=== PATIENT | male | born 1930 | race African-American/Black ===

== ENCOUNTER 2018-06-06 08:25 | Inpatient (IN) | payer BC, MEDICARE ==
--- NOTE | 2018-06-06 09:26 | ER Document Report ---
ED Extremity Problem, Lower - General Chief Complaint: Leg Swelling Stated Complaint: SWOLLEN LEG Time Seen by Provider: 06/06/18 09:21 Mode of Arrival: Ambulatory Information source: Patient Notes: Chief complaint: Left leg swelling History of complain:( obtained from----patient) 88 years old pleasant male with a chronic history of left leg swelling, had colon cancer which was surgically resected a few years ago since then persistent swelling of the left leg, but last few days the swelling is more than usual in spite of taking Lasix therefore he was brought to the ED. Take informed that he does not take his Lasix regularly. Has no difficulty in breathing chest pain. Denies any swelling over the right lower leg. Denies any constitutional symptoms. Onset: Gradual Duration: Last several days Severity: Moderate Quality: Not applicable Context: Postsurgical lymphatic stasis Exacerbating factor and relieving factors: Sitting in a place for a long time REVIEW OF SYSTEMS: CONSTITUTIONAL : Denies fever, chills, or sweats. Denies recent illness. EENT: Denies eye, ear, throat, or mouth pain or symptoms. Denies nasal or sinus congestion or discharge. Denies throat, tongue, or mouth swelling or difficulty swallowing. CARDIOVASCULAR: Denies chest pain. Denies palpitations or racing or irregular heart beat. Denies ankle edema. RESPIRATORY: Denies cough, cold, or chest congestion. Denies shortness of breath, difficulty breathing, or wheezing. GASTROINTESTINAL: Denies distention. Denies nausea, vomiting, or diarrhea. Denies blood in vomitus, stools, or per rectum. Denies black, tarry stools. Denies constipation. GENITOURINARY: Denies difficulty urinating, painful urination, burning, frequency, blood in urine, or discharge. FEMALE GENITOURINARY: Denies vaginal bleeding, heavy or abnormal periods, irregular periods. Denies vaginal discharge or odor. MUSCULOSKELETAL: Denies back or neck pain or stiffness. Denies joint pain SKIN: Denies rash, lesions or sores. HEMATOLOGIC : Denies easy bruising or bleeding. LYMPHATIC: Denies swollen, enlarged glands. NEUROLOGICAL: Denies confusion or altered mental status. Denies passing out or loss of consciousness. Denies dizziness or lightheadedness. Denies headache. Denies weakness or paralysis or loss of use of either side. Denies problems with gait or speech. Denies sensory loss, numbness, or tingling. Denies seizures. PSYCHIATRIC: Denies anxiety or stress. Denies depression, suicidal ideation, or homicidal ideation. ALL OTHER SYSTEMS REVIEWED AND NEGATIVE. PHYSICAL EXAMINATION: GENERAL: Well-appearing, well-nourished and in no acute distress. Pleasant gentleman not in any distress walks with a walker HEAD: Atraumatic, normocephalic. EYES: Pupils equal round and reactive to light, extraocular movements intact, conjunctiva are normal. ENT: Nares patent, oropharynx clear without exudates. Moist mucous membranes. NECK: Normal range of motion, supple without lymphadenopathy LUNGS: Breath sounds clear to auscultation bilaterally and equal. No wheezes rales or rhonchi. HEART: Regular rate and rhythm without murmurs ABDOMEN: Soft, nontender, nondistended abdomen. No guarding, no rebound. No masses appreciated. Examination of genitals-deferred Musculoskeletal: Left leg entire left leg has 4+ pitting edema, left calf is very tight and tender, swelling is almost double the size of the right side. Right leg appears normal. Normal range of motion. NEUROLOGICAL: Cranial nerves grossly intact. Normal speech, normal gait. Normal sensory, motor exams PSYCH: Normal mood, normal affect. SKIN: Warm, Dry, normal turgor, no rashes or lesions noted. Dictation was performed using [id number] voice recognition software TRAVEL OUTSIDE OF THE [place] IN LAST 30 DAYS: No - HPI Notes: Dictated - Related Data Allergies/Adverse Reactions: No Known Allergies Allergy (Verified 06/06/18 08:25) Past Medical History - Social History Smoking Status: Never Smoker Cigarette use (# per day): No Chew tobacco use (# tins/day): No Smoking Education Provided: No Frequency of alcohol use: Rare Drug Abuse: None Lives with: Family Family History: Reviewed & Not Pertinent - Past Medical History Cardiac Medical History: Reports: Hx Hypertension - MEDICATED Denies: Hx Coronary Artery Disease, Hx Heart Attack Pulmonary Medical History: Denies: Hx Asthma, Hx Bronchitis, Hx COPD, Hx Pneumonia, Hx Tuberculosis Neurological Medical History: Denies: Hx Cerebrovascular Accident, Hx Seizures Endocrine Medical History: Reports: Hx Diabetes Mellitus Type 2 GI Medical History: Denies: Hx Hepatitis, Hx Hiatal Hernia, Hx Ulcer Musculoskeletal Medical History: Reports Hx Arthritis Infectious Medical History: Denies: Hx Hepatitis Past Surgical History: Denies: Hx Open Heart Surgery, Hx Pacemaker - Immunizations Hx Pneumococcal Vaccination: 06/18/11 Review of Systems - Review of Systems Notes: Dictated Physical Exam - Vital signs Vitals: Pulse Resp BP Pulse Ox 88 12 121/73 99 06/06/18 08:51 06/06/18 08:51 06/06/18 08:51 06/06/18 08:51 - Notes Notes: Dictated Course - Vital Signs Vital signs: Temp Pulse Resp BP Pulse Ox 88 12 121/73 99 06/06/18 08:51 06/06/18 08:51 06/06/18 08:51 06/06/18 08:51 Discharge - Discharge Referrals: CRISELDA ZELAYA MD [Primary Care Provider] - Follow up as needed
[2018-06-06 10:09] LABS: ABSOLUTE EOSINOPHILS # (AUTO) 0.5 10^3/uL (0.0-0.6); ABSOLUTE LYMPHOCYTES (AUTO) 0.9 10^3/uL (0.5-4.7); ABSOLUTE MONOCYTES (AUTO) 0.3 10^3/uL (0.1-1.4); ABSOLUTE NEUT (AUTO) 2.7 10^3/uL (1.7-8.2); EOSINOPHILS % (AUTO) 10.6 % (0-6); HEMATOCRIT 31.5 % (37.9-51.0); HEMOGLOBIN 10.6 g/dL (13.5-17.0); LYMPHOCYTES % (AUTO) 20.5 % (13-45); MEAN CORPUSCULAR HEMOGLOBIN 32.8 pg (27.0-33.4); MEAN CORPUSCULAR HGB CONC 33.5 g/dL (32.0-36.0); MEAN CORPUSCULAR VOLUME 98 fl (80-97); MONOCYTES % (AUTO) 7.3 % (3-13); RED BLOOD COUNT 3.22 10^6/uL (4.35-5.55); RED CELL DISTRIBUTION WIDTH 18.3 % (11.5-14.0); SEGMENTED NEUTROPHILS % (AUTO) 60.6 % (42-78); TOTAL CELLS COUNTED % (AUTO) 100 %; WHITE BLOOD COUNT 4.4 10^3/uL (4.0-10.5)
[2018-06-06 10:23] LABS: ALANINE AMINOTRANSFERASE 16 U/L (21-72); ALBUMIN 3.4 g/dL (3.5-5.0); ALKALINE PHOSPHATASE 271 U/L (38-126); ANION GAP 7 (5-19); ASPARTATE AMINO TRANSFERASE 16 U/L (17-59); BILIRUBIN,DIRECT 0.6 mg/dL (0.0-0.4); BILIRUBIN,TOTAL 0.9 mg/dL (0.2-1.3); BLOOD UREA NITROGEN 39 mg/dL (7-20); CALCIUM 8.4 mg/dL (8.4-10.2); CARBON DIOXIDE 16 mmol/L (22-30); CHLORIDE 119 mmol/L (98-107); GLUCOSE 85 mg/dL (75-110); POTASSIUM 5.8 mmol/L (3.6-5.0); SODIUM 142.2 mmol/L (137-145); TOTAL PROTEIN 6.5 g/dL (6.3-8.2)
[2018-06-06 10:40] LABS: PLATELET COUNT 67 10^3/uL (150-450)
[2018-06-06 10:41] LABS: ANISOCYTOSIS 2+; HYPOCHROMASIA 1+; OVALOCYTES 1+; PLATELET COMMENT DECREASED; POIKILOCYTOSIS 2+; POLYCHROMASIA 1+; SCHISTOCYTES 1+; TARGET CELLS 1+; TEAR DROP CELLS SLIGHT
[2018-06-06] MEDS ORDERED: RIVAROXABAN 15 MG TABLET PO ONE (11:01)
[2018-06-06] MEDS ORDERED: NORMAL SALINE 1000 ML 1,000 ML IV ONE (11:11)
[2018-06-06 11:29] LABS: INTERNATIONAL RATION (INR) 1.29; PROTHROMBIN TIME 16.7 SEC (11.4-15.4)
[2018-06-06 11:30] LABS: PARTIAL THROMBOPLASTIN TIME 37.1 SEC (23.5-35.8)
--- NOTE | 2018-06-06 11:42 | EKG REPORT ---
SEVERITY:- DEFECTIVE ECG - SINUS RHYTHM.NS IVCD.REPEAT EKG. : Confirmed by: Francia Robbins MD 06-Jun-2018 11:41:49
[2018-06-06] MEDS ORDERED: SODIUM POLYSTYRENE SULFONATE 15 GM/60 ML PO ONE (12:07)
--- NOTE | 2018-06-06 12:28 | RADIOLOGY REPORT (SQ) ---
EXAM DESCRIPTION: VENOUS UNILATERAL LOWER COMPLETED DATE/TIME: 06/06/2018 12:13 pm REASON FOR STUDY: Rule out DVT of the left leg COMPARISON: None. TECHNIQUE: Dynamic and static samuels scale and color images acquired of the left leg venous system. Se lected spectral images acquired with additional compression and augmentation maneuvers. The contralat eral common femoral vein and saphenofemoral junction were also imaged. Images stored on PACS. LIMITATIONS: None. FINDINGS: COMMON FEMORAL: Mostly occlusive thrombus. FEMORAL: Mostly occlusive thrombus. POPLITEAL: Nonocclusive thrombus. CALF VESSELS: Normal compression, augmentation. No visualized echogenic material on samuels scale. No de fects on color images. GSV and SSV: Normal compression, augmentation. No visualized echogenic material on samuels scale. No def ects on color images. ANY DEEP VENOUS INSUFFICIENCY: Not evaluated. ANY EVIDENCE OF POPLITEAL CYST: No. OTHER: No other significant finding. CONTRALATERAL COMMON FEMORAL VEIN AND SAPHENOFEMORAL JUNCTION: Normal phasicity, compression and augmentation. No visualized echogenic material on samuels scale. No de fects on color images. IMPRESSION: Acute deep vein thrombosis common femoral, femoral and popliteal veins. TECHNICAL DOCUMENTATION: JOB ID: [id number] clickTRUE- All Rights Reserved Reading location - IP/workstation name: [email or web address]
[2018-06-06] MEDS ORDERED: NORMAL SALINE 250 ML IV ONE (12:43)
[2018-06-06] MEDS ORDERED: APIXABAN 2.5 MG TABLET PO ONE (12:48)
--- NOTE | 2018-06-06 13:04 | ER Document Report ---
ED General - General Chief Complaint: Leg Swelling Stated Complaint: SWOLLEN LEG Time Seen by Provider: 06/06/18 09:21 Mode of Arrival: Ambulatory TRAVEL OUTSIDE OF THE [place] IN LAST 30 DAYS: No - HPI Patient complains to provider of: Left leg swelling Notes: Patient coming in for left leg swelling ongoing for approximately 1 week. Family at bedside patient has a history of dementia the family states the patient has a history of colon cancer with resection states history of blood clots in the past was on blood thinning medication however currently is on not states he has not followed up with his primary care physician the last 2 years. Patient otherwise was prescribed medications for hypertension and other medical issues is currently ran out. Patient resting comfortably denies any pain. Denies any trauma to the leg denies any travel. Patient denies any shortness of breath. - Related Data Allergies/Adverse Reactions: No Known Allergies Allergy (Verified 06/06/18 08:25) Past Medical History - General Information source: Patient - Social History Smoking Status: Never Smoker Cigarette use (# per day): No Chew tobacco use (# tins/day): No Frequency of alcohol use: Rare Drug Abuse: None Lives with: Family Family History: Reviewed & Not Pertinent Patient has suicidal ideation: No Patient has homicidal ideation: No - Past Medical History Cardiac Medical History: Reports: Hx Hypertension - MEDICATED Denies: Hx Coronary Artery Disease, Hx Heart Attack Pulmonary Medical History: Denies: Hx Asthma, Hx Bronchitis, Hx COPD, Hx Pneumonia, Hx Tuberculosis Neurological Medical History: Denies: Hx Cerebrovascular Accident, Hx Seizures Endocrine Medical History: Reports: Hx Diabetes Mellitus Type 2 Renal/ Medical History: Denies: Hx Peritoneal Dialysis GI Medical History: Denies: Hx Hepatitis, Hx Hiatal Hernia, Hx Ulcer Musculoskeletal Medical History: Reports Hx Arthritis Infectious Medical History: Denies: Hx Hepatitis Past Surgical History: Denies: Hx Open Heart Surgery, Hx Pacemaker - Immunizations Hx Pneumococcal Vaccination: 06/18/11 Review of Systems - Review of Systems -: Yes ROS unobtainable due to patient's medical condition - Dementia -: Yes All other systems reviewed and negative Physical Exam - Vital signs Vitals: Pulse Resp BP Pulse Ox 88 12 121/73 99 06/06/18 08:51 06/06/18 08:51 06/06/18 08:51 06/06/18 08:51 Interpretation: Normal - General General appearance: Appears well, Alert - HEENT Head: Normocephalic, Atraumatic Eyes: Normal Pupils: PERRL - Respiratory Respiratory status: No respiratory distress Chest status: Nontender Breath sounds: Normal Chest palpation: Normal - Cardiovascular Rhythm: Regular Heart sounds: Normal auscultation Murmur: No - Abdominal Inspection: Normal Distension: No distension Bowel sounds: Normal Tenderness: Nontender Organomegaly: No organomegaly - Back Back: Normal, Nontender - Extremities General upper extremity: Normal inspection, Nontender, Normal color, Normal temperature General lower extremity: Normal inspection, Nontender, Edema - 2-3+ pitting edema on the patient's left leg right leg unaffected, Normal color - Neurological Neuro grossly intact: Yes Sensory: Normal - Psychological Associated symptoms: Normal affect, Normal mood - Skin Skin Temperature: Warm Skin Moisture: Dry Skin Color: Normal Course - Re-evaluation Re-evalutation: 06/06/18 13:05 Patient been noncompliant follow-up with his primary care physician has not seen Dr. Mcgill in the last 2 years. Discussed the patient's case with Dr. Mcgill states that as a is not seen the patient in 2 years that the patient will need to be admitted to the hospitalist service. Discussed with Dr. Fletcher and Dr Smith. Will admit patient to telemetry unit will start renal dose and H dose of Eliquis 2.5 06/06/18 13:06 Patient's Doppler shows extensive DVT. Patient laboratory studies shows hyperkalemia thrombocytopenia and chronic renal failure. Thrombocytopenia is also chronic as well. Patient's family states that he has no issues with bleeding in the past no GI bleeds the head trauma. Patient was given oral Kayexalate along with IV fluids to help with the hyperkalemia is that there is no signs of EKG changes. - Vital Signs Vital signs: Temp Pulse Resp BP Pulse Ox 88 12 121/73 99 06/06/18 08:51 06/06/18 08:51 06/06/18 08:51 06/06/18 08:51 - Laboratory Result Diagrams: 06/06/18 09:42 06/06/18 09:42 Laboratory results interpreted by me: 06/06/18 06/06/18 06/06/18 09:42 09:42 09:42 RBC 3.22 L Hgb 10.6 L Hct 31.5 L MCV 98 H RDW 18.3 H Plt Count 67 L Eosinophils % 10.6 H PT APTT Potassium 5.8 H Chloride 119 H Carbon Dioxide 16 L BUN 39 H Creatinine 2.52 H Est GFR ( Amer) 29 L Est GFR (Non-Af Amer) 24 L Direct Bilirubin 0.6 H AST 16 L ALT 16 L Alkaline Phosphatase 271 H NT-Pro-B Natriuret Pep 3080 H Albumin 3.4 L 06/06/18 11:15 RBC Hgb Hct MCV RDW Plt Count Eosinophils % PT 16.7 H APTT 37.1 H Potassium Chloride Carbon Dioxide BUN Creatinine Est GFR ( Amer) Est GFR (Non-Af Amer) Direct Bilirubin AST ALT Alkaline Phosphatase NT-Pro-B Natriuret Pep Albumin Discharge - Discharge Clinical Impression: Hyperkalemia, Thrombocytopenia chronic 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
[2018-06-06] MEDS ORDERED: ONDANSETRON HCL INJ/PF 4 MG/2 ML SDV IV PRN (13:30)
[2018-06-06] MEDS ORDERED: ACETAMINOPHEN 325 MG TABLET PO PRN (13:30)
[2018-06-06] MEDS ORDERED: SODIUM POLYSTYRENE SULFONATE PO PRN (13:36)
--- NOTE | 2018-06-06 18:36 | PDOC H&P ---
History of Present Illness Admission Date/PCP: 06/06/18 13:30 CRISELDADENISE ZELAYA History of Present Illness: ROSALIND COOPER is a 88 year old male who is 88, demented and a terrible historian. I am called by the ED physician to admit this patient for Left lower extremity DVT, ANASTASIIA, hyperkalemia, and chronic thrombocytopenia. The patient has no idea why he is here. There is no family with him. Past Medical History Cardiac Medical History: Reports: Hypertension - MEDICATED Denies: Coronary Artery Disease, Myocardial Infarction Pulmonary Medical History: Denies: Asthma, Bronchitis, Chronic Obstructive Pulmonary Disease (COPD), Pneumonia, Tuberculosis Neurological Medical History: Denies: Seizures Endocrine Medical History: Reports: Diabetes Mellitus Type 2 GI Medical History: Denies: Hepatitis, Hiatal Hernia Musculoskeltal Medical History: Reports: Arthritis Hematology: Denies: Anemia, Sickle Cell Disease Past Surgical History Past Surgical History: Denies: Pacemaker Social History Lives with: Family Smoking Status: Never Smoker Hx Recreational Drug Use: No Hx Prescription Drug Abuse: No Family History Family History: Reviewed & Not Pertinent Parental Family History Reviewed: Yes Children Family History Reviewed: Yes Sibling(s) Family History Reviewed.: Yes Medication/Allergy Home Medications: Timolol Maleate 1 drop OU QAM 06/06/18 Allergies/Adverse Reactions: No Known Allergies Allergy (Verified 06/06/18 08:25) Review of Systems ROS unobtainable: Other - The patient is demented, and has no idea why he is here. He is not able to cooperate with Review of Systems. Physical Exam Vital Signs: Temp Pulse Resp BP Pulse Ox 88 12 121/73 99 06/06/18 08:51 06/06/18 08:51 06/06/18 08:51 06/06/18 08:51 Intake & Output 06/05/18 06/06/18 06/07/18 06:59 06:59 06:59 Intake Total 250 Balance 250 General appearance: PRESENT: no acute distress, cooperative, thin Head exam: PRESENT: atraumatic, normocephalic Eye exam: PRESENT: EOMI, PERRLA. ABSENT: conjunctival injection, nystagmus, periorbital swelling, scleral icterus Ear exam: PRESENT: normal external ear exam. ABSENT: bleeding, drainage Mouth exam: PRESENT: moist, neck supple, tongue midline Throat exam: ABSENT: post pharyngeal erythema, tonsillar erythema, tonsillar exudate, tonsillogmegaly Neck exam: ABSENT: carotid bruit, JVD, lymphadenopathy, meningismus, tenderness , thyromegaly, tracheostomy, other Respiratory exam: PRESENT: other - No increased work of breathing. No wheezes, rales, or rhonchi. No tactile fremitus. Cardiovascular exam: PRESENT: RRR, other - No lateral PMi. No thrills.. ABSENT : gallop, rubs, systolic murmur Pulses: PRESENT: normal dorsalis pedis pul GI/Abdominal exam: PRESENT: normal bowel sounds, soft. ABSENT: distended, hernia, mass, tenderness Extremities exam: ABSENT: clubbing, pedal edema, tenderness Musculoskeletal exam: PRESENT: normal inspection. ABSENT: deformity, dislocation, tenderness Neurological exam: PRESENT: alert, awake, oriented to person, oriented to place , oriented to time, oriented to situation, CN II-XII grossly intact. ABSENT: motor sensory deficit Psychiatric exam: PRESENT: appropriate affect, normal mood Skin exam: PRESENT: dry, intact, warm Results Laboratory Results: 06/06/18 06/06/18 06/06/18 09:42 09:42 09:42 WBC 4.4 RBC 3.22 L Hgb 10.6 L Hct 31.5 L MCV 98 H MCH 32.8 MCHC 33.5 RDW 18.3 H Plt Count 67 L Seg Neutrophils % 60.6 Lymphocytes % 20.5 Monocytes % 7.3 Eosinophils % 10.6 H Basophils % 1.0 Absolute Neutrophils 2.7 Absolute Lymphocytes 0.9 Absolute Monocytes 0.3 Absolute Eosinophils 0.5 Absolute Basophils 0.0 Platelet Comment DECREASED Polychromasia 1+ Hypochromasia 1+ Poikilocytosis 2+ Anisocytosis 2+ Target Cells 1+ Tear Drop Cells SLIGHT Ovalocytes 1+ Schistocytes 1+ PT INR APTT Sodium 142.2 Potassium 5.8 H Chloride 119 H Carbon Dioxide 16 L Anion Gap 7 BUN 39 H Creatinine 2.52 H Est GFR ( Amer) 29 L Est GFR (Non-Af Amer) 24 L Glucose 85 Calcium 8.4 Total Bilirubin 0.9 Direct Bilirubin 0.6 H AST 16 L ALT 16 L Alkaline Phosphatase 271 H NT-Pro-B Natriuret Pep 3080 H Total Protein 6.5 Albumin 3.4 L 06/06/18 11:15 WBC RBC Hgb Hct MCV MCH MCHC RDW Plt Count Seg Neutrophils % Lymphocytes % Monocytes % Eosinophils % Basophils % Absolute Neutrophils Absolute Lymphocytes Absolute Monocytes Absolute Eosinophils Absolute Basophils Platelet Comment Polychromasia Hypochromasia Poikilocytosis Anisocytosis Target Cells Tear Drop Cells Ovalocytes Schistocytes PT 16.7 H INR 1.29 APTT 37.1 H Sodium Potassium Chloride Carbon Dioxide Anion Gap BUN Creatinine Est GFR ( Amer) Est GFR (Non-Af Amer) Glucose Calcium Total Bilirubin Direct Bilirubin AST ALT Alkaline Phosphatase NT-Pro-B Natriuret Pep Total Protein Albumin Impressions: Venous Doppler Study 06/06/18 09:21 IMPRESSION: Acute deep vein thrombosis common femoral, femoral and popliteal veins. Assessment & Plan - Diagnosis (1) Thrombocytopenia Is this a current diagnosis for this admission?: Yes Plan: Chronic. Monitor. (2) Chronic renal failure Qualifiers: Chronic kidney disease stage: unspecified stage Qualified Code(s): N18.9 - Chronic kidney disease, unspecified Is this a current diagnosis for this admission?: Yes Plan: Cautious IV fluids. Monitor creatinine and electrolytes. Avoid nephrotoxic substances. (3) Deep vein thrombosis (DVT) of left lower extremity Qualifiers: Affected thrombotic vein of extremity: femoral Chronicity: acute Qualified Code(s): I82.412 - Acute embolism and thrombosis of left femoral vein Is this a current diagnosis for this admission?: Yes Plan: Eliquis (4) Hyperkalemia Is this a current diagnosis for this admission?: Yes Plan: Kayexalate given in the ED. Monitor potassium. Repeat if necessary. - Time Time Spent: 50 to 70 Minutes Medications reviewed and adjusted accordingly: Yes - Plan Summary Plan Summary: Admit to a medical bed. Continue eliquis. Monitor platelets, creatinine, and electrolytes.
[2018-06-07 07:04] LABS: ABSOLUTE EOSINOPHILS # (AUTO) 0.3 10^3/uL (0.0-0.6); ABSOLUTE LYMPHOCYTES (AUTO) 0.4 10^3/uL (0.5-4.7); ABSOLUTE MONOCYTES (AUTO) 0.3 10^3/uL (0.1-1.4); ABSOLUTE NEUT (AUTO) 3.2 10^3/uL (1.7-8.2); BASOPHILS % (AUTO) 0.3 % (0-2); EOSINOPHILS % (AUTO) 6.6 % (0-6); HEMATOCRIT 30.1 % (37.9-51.0); HEMOGLOBIN 10.3 g/dL (13.5-17.0); LYMPHOCYTES % (AUTO) 10.5 % (13-45); MEAN CORPUSCULAR HEMOGLOBIN 33.3 pg (27.0-33.4); MEAN CORPUSCULAR HGB CONC 34.4 g/dL (32.0-36.0); MEAN CORPUSCULAR VOLUME 97 fl (80-97); MONOCYTES % (AUTO) 6.7 % (3-13); RED CELL DISTRIBUTION WIDTH 17.8 % (11.5-14.0); SEGMENTED NEUTROPHILS % (AUTO) 75.9 % (42-78); TOTAL CELLS COUNTED % (AUTO) 100 %; WHITE BLOOD COUNT 4.2 10^3/uL (4.0-10.5)
[2018-06-07 07:16] LABS: ANION GAP 5 (5-19); BLOOD UREA NITROGEN 39 mg/dL (7-20); CALCIUM 8.1 mg/dL (8.4-10.2); CARBON DIOXIDE 13 mmol/L (22-30); CHLORIDE 123 mmol/L (98-107); GLUCOSE 71 mg/dL (75-110); POTASSIUM 5.8 mmol/L (3.6-5.0); SODIUM 141.4 mmol/L (137-145)
[2018-06-07 08:17] LABS: ANISOCYTOSIS 2+; HYPOCHROMASIA 2+; OVALOCYTES 1+; PLATELET COUNT 63 10^3/uL (150-450); POIKILOCYTOSIS 2+; POLYCHROMASIA 1+
[2018-06-07 08:18] LABS: PLATELET COMMENT DECREASED; SCHISTOCYTES SLIGHT; TARGET CELLS 1+; TEAR DROP CELLS SLIGHT; TOXIC GRANULATION SLIGHT; TOXIC VACUOLATION PRESENT
[2018-06-07] MEDS ORDERED: [UNRECOGNIZED DRUG - OTHER] PO SCH (10:00)
[2018-06-07] MEDS ORDERED: B12 PO SCH (10:00)
[2018-06-07] MEDS ORDERED: [UNRECOGNIZED DRUG - OTHER] PO SCH (10:00)
[2018-06-07] MEDS ORDERED: METHYLCOBALAMIN PO SCH (10:00)
[2018-06-07] MEDS ORDERED: LEVOMEFOLATE PO SCH (10:00)
[2018-06-07] MEDS ORDERED: VIT C PO SCH (10:00)
[2018-06-07] MEDS ORDERED: CARVEDILOL PHOSPHATE 20 MG PO SCH (10:00)
[2018-06-07] MEDS: ATORVASTATIN CALCIUM 10 MG TABLET PO SCH (10:14)
[2018-06-07] MEDS: ISOSORBIDE MONONITRATE 30 MG TAB.ER.24H PO SCH (10:14)
[2018-06-07] MEDS: ASPIRIN 81 MG TABLET, ENT COATED PO SCH (10:14)
[2018-06-07] MEDS: GLIMEPIRIDE 4 MG TABLET PO SCH (10:18)
[2018-06-07] MEDS ORDERED: NORMAL SALINE 1000 ML 1,000 ML IV PRN (16:00)
--- NOTE | 2018-06-07 16:00 | PDOC PROGRESS REPORT ---
Subjective Progress Note for:: 06/07/18 Subjective:: The patient is agitated today and attempting to get out of bed without assistance. He is somewhat confused. Reason For Visit: ANASTASIIA,HYPERKALEMIA,DVT LT LE Physical Exam Vital Signs: Temp Pulse Resp BP Pulse Ox 97.4 F 80 12 100/55 L 99 06/07/18 12:15 06/07/18 12:15 06/07/18 12:15 06/07/18 12:15 06/07/18 12:15 Intake & Output 06/06/18 06/07/18 06/08/18 06:59 06:59 06:59 Intake Total 1250 Balance 1250 Weight 56.9 kg General appearance: PRESENT: other - Agitated, confused. Respiratory exam: PRESENT: other - No increased work of breathing. No wheezes, rales, or rhonchi. No tactile fremitus. Cardiovascular exam: PRESENT: RRR. ABSENT: gallop, rubs, systolic murmur Vascular exam: PRESENT: other - Diminished distal pulses. GI/Abdominal exam: PRESENT: normal bowel sounds, soft. ABSENT: distended, hernia, mass, organolmegaly, tenderness Extremities exam: PRESENT: other - Left lower extremity and thigh are significantly swollen due to DVT.. ABSENT: clubbing, pedal edema, tenderness Musculoskeletal exam: PRESENT: tenderness. ABSENT: deformity, dislocation Neurological exam: PRESENT: alert, awake, CN II-XII grossly intact. ABSENT: motor sensory deficit Psychiatric exam: PRESENT: agitated Skin exam: PRESENT: dry, intact, warm Results Laboratory Results: 06/07/18 06:16 06/07/18 06:16 06/07/18 06/07/18 06/07/18 06:16 06:16 12:28 WBC 4.2 RBC 3.10 L Hgb 10.3 L Hct 30.1 L MCV 97 MCH 33.3 MCHC 34.4 RDW 17.8 H Plt Count 63 L Seg Neutrophils % 75.9 Lymphocytes % 10.5 L Monocytes % 6.7 Eosinophils % 6.6 H Basophils % 0.3 Absolute Neutrophils 3.2 Absolute Lymphocytes 0.4 L Absolute Monocytes 0.3 Absolute Eosinophils 0.3 Absolute Basophils 0.0 Sodium 141.4 Potassium 5.8 H Chloride 123 H Carbon Dioxide 13 L Anion Gap 5 BUN 39 H Creatinine 2.07 H Est GFR ( Amer) 37 L Est GFR (Non-Af Amer) 30 L Glucose 71 L Calcium 8.1 L Magnesium 1.8 Stool Occult Blood NEGATIVE Impressions: Venous Doppler Study 06/06/18 09:21 IMPRESSION: Acute deep vein thrombosis common femoral, femoral and popliteal veins. Assessment & Plan - Diagnosis (1) Deep vein thrombosis (DVT) of left lower extremity Qualifiers: Affected thrombotic vein of extremity: femoral Chronicity: acute Qualified Code(s): I82.412 - Acute embolism and thrombosis of left femoral vein Is this a current diagnosis for this admission?: Yes Plan: Eliquis (2) Thrombocytopenia Is this a current diagnosis for this admission?: Yes Plan: Chronic. Monitor. (3) Chronic renal failure Qualifiers: Chronic kidney disease stage: unspecified stage Qualified Code(s): N18.9 - Chronic kidney disease, unspecified Is this a current diagnosis for this admission?: Yes Plan: Cautious IV fluids. Creatinine is trending down. Monitor creatinine and electrolytes. Avoid nephrotoxic substances. (4) Hyperkalemia Is this a current diagnosis for this admission?: Yes Plan: Potassium continues to be elevated. Will repeat kayexalate and give IV fluids. Continue to monitor. - Time Time Spent with patient: 25-34 minutes Medications reviewed and adjusted accordingly: Yes
[2018-06-07] MEDS ORDERED: SODIUM POLYSTYRENE SULFONATE 15 GM/60 ML PO ONE (16:01)
[2018-06-07] MEDS: TIMOLOL MALEATE 0.5% OPH SOLN 5 ML OU SCH (17:03)
[2018-06-08] MEDS: GLIMEPIRIDE 4 MG TABLET PO SCH (07:56)
[2018-06-08 09:48] LABS: HEMATOCRIT 33.9 % (37.9-51.0); HEMOGLOBIN 11.3 g/dL (13.5-17.0); MEAN CORPUSCULAR HEMOGLOBIN 32.9 pg (27.0-33.4); MEAN CORPUSCULAR HGB CONC 33.4 g/dL (32.0-36.0); MEAN CORPUSCULAR VOLUME 99 fl (80-97); RED BLOOD COUNT 3.44 10^6/uL (4.35-5.55); RED CELL DISTRIBUTION WIDTH 18.1 % (11.5-14.0); WHITE BLOOD COUNT 3.7 10^3/uL (4.0-10.5)
[2018-06-08 10:05] LABS: ANION GAP 6 (5-19); BLOOD UREA NITROGEN 37 mg/dL (7-20); CALCIUM 8.2 mg/dL (8.4-10.2); CARBON DIOXIDE 16 mmol/L (22-30); CHLORIDE 119 mmol/L (98-107); GLUCOSE 80 mg/dL (75-110); SODIUM 141.2 mmol/L (137-145)
[2018-06-08 10:32] LABS: PLATELET COUNT 79 10^3/uL (150-450)
[2018-06-08] MEDS ORDERED: SODIUM POLYSTYRENE SULFONATE 15 GM/60 ML PO ONE (10:34)
[2018-06-08] MEDS ORDERED: SODIUM BICARBONATE 8.4% INJ 50 MEQ/50 ML DISP.SYRIN IV ONE (10:34)
[2018-06-08] MEDS ORDERED: CALCIUM GLUCONATE 1000 MG/10 ML INJ IV ONE (10:34)
[2018-06-08] MEDS ORDERED: IPRATROPIUM/ALBUTEROL 0.5-2.5 MG/3 ML AMPUL NEB ONE ×2 (10:34→12:39)
[2018-06-08] MEDS ORDERED: DEXTROSE 50%-WATER 25 GM/50 ML DISP.SYRIN IV ONE (10:39)
[2018-06-08] MEDS ORDERED: INSULIN REG, HUMAN 100 UNIT/ML 3 ML VIAL (PYX) IV ONE (10:39)
[2018-06-08 10:47] LABS: ABSOLUTE LYMPHOCYTES# (MANUAL) 0.9 10^3/uL (0.5-4.7); ABSOLUTE MONOCYTES # (MANUAL) 0.1 10^3/uL (0.1-1.4); ABSOLUTE NEUTROPHILS# (MANUAL) 2.6 10^3/uL (1.7-8.2); ANISOCYTOSIS 2+; BASOPHILS % (MANUAL) 0 % (0-2); BURR CELLS SLIGHT; EOSINOPHILS % (MANUAL) 4 % (0-6); HYPOCHROMASIA 1+; LYMPHOCYTES % (MANUAL) 24 % (13-45); MONOCYTES % (MANUAL) 2 % (3-13); OVALOCYTES 1+; PLATELET COMMENT DECREASED; POIKILOCYTOSIS 2+; POLYCHROMASIA 1+; SCHISTOCYTES 1+; SEGMENTED NEUTROPHILS % (MAN) 70 % (42-78); TARGET CELLS 1+; TOTAL CELLS COUNTED 100
--- NOTE | 2018-06-08 10:52 | PDOC PROGRESS REPORT ---
Subjective Progress Note for:: 06/08/18 Subjective:: This patient was admitted with acute DVT of the left leg. He was also found to be hyperkalemic as well as an acute renal failure. Patient has underlying dementia. He was apparently agitated and confused earlier however at the time of my exam patient is sitting calmly in bed although still confused. Reason For Visit: ANASTASIIA,HYPERKALEMIA,DVT LT LE Physical Exam Vital Signs: Temp Pulse Resp BP Pulse Ox 97.5 F 60 17 124/74 100 06/08/18 04:00 06/08/18 07:00 06/08/18 04:00 06/08/18 04:00 06/08/18 04:00 Intake & Output 06/07/18 06/08/18 06/09/18 06:59 06:59 06:59 Intake Total 1250 674 Balance 1250 674 Weight 56.9 kg 54.5 kg General appearance: PRESENT: no acute distress, other - confused. Elderly and frail Head exam: PRESENT: atraumatic Mouth exam: PRESENT: other - Circumscribed lesion on lower lip Neck exam: ABSENT: carotid bruit, JVD, lymphadenopathy, thyromegaly Respiratory exam: PRESENT: clear to auscultation luis fernando, unlabored. ABSENT: rhonchi Cardiovascular exam: PRESENT: RRR. ABSENT: diastolic murmur, rubs, systolic murmur Rectal exam: PRESENT: deferred Extremities exam: PRESENT: +2 edema Musculoskeletal exam: PRESENT: other - Left leg swelling Neurological exam: PRESENT: alert Psychiatric exam: PRESENT: appropriate affect Results Laboratory Results: 06/08/18 09:23 06/08/18 09:23 06/07/18 06/08/18 06/08/18 12:28 09:23 09:23 WBC 3.7 L RBC 3.44 L Hgb 11.3 L Hct 33.9 L MCV 99 H MCH 32.9 MCHC 33.4 RDW 18.1 H Plt Count 79 L Seg Neutrophils % Not Reportable Lymphocytes % Not Reportable Monocytes % Not Reportable Eosinophils % Not Reportable Basophils % Not Reportable Absolute Neutrophils Not Reportable Absolute Lymphocytes Not Reportable Absolute Monocytes Not Reportable Absolute Eosinophils Not Reportable Absolute Basophils Not Reportable Sodium 141.2 Potassium 6.0 H* Chloride 119 H Carbon Dioxide 16 L Anion Gap 6 BUN 37 H Creatinine 1.87 H Est GFR ( Amer) 41 L Est GFR (Non-Af Amer) 34 L Glucose 80 Calcium 8.2 L Stool Occult Blood NEGATIVE Impressions: Venous Doppler Study 06/06/18 09:21 IMPRESSION: Acute deep vein thrombosis common femoral, femoral and popliteal veins. Assessment & Plan - Time Time Spent with patient: 25-34 minutes Medications reviewed and adjusted accordingly: Yes Anticipated discharge: SNF - Inpatient Certification Based on my medical assessment, after consideration of the patient's comorbidities, presenting symptoms, or acuity I expect that the services needed warrant INPATIENT care.: Yes Medical Necessity: Need Close Monitoring Due to Risk of Patient Decompensation, Risk of Complication if Not Cared For in Hospital - Plan Summary Plan Summary: Acute deep venous thrombosis of the left lower extremity. Patient will be started on Eliquis. His kidney function is improved and so no dose adjustments needed. 2. Hyperkalemia patient apparently received Kayexalate his potassium is still elevated at 6. I have placed him on some bicarbonate as he is also acidotic as well as hyperchloremic. I also ordered calcium gluconate as well as Kayexalate and albuterol and will give D50 with insulin. 3. Acute kidney injury on chronic kidney disease stage III. Patient's kidney function is actually improved. Will continue to trend as well as continue cautious IV fluid. 4. Thrombocytopenia is apparently chronic 5. Electrolyte imbalance including acidosis, hyperchloremia, hypokalemia which is consistent with the acidosis. 6. Dementia, advanced. Likely unsafe for this patient to be living alone and social service has been consulted for discharge planning. 7. Patient has a lesion on his lower lip on the right side. This should be followed up as outpatient for further evaluation
[2018-06-08] MEDS ORDERED: INSULIN REG, HUMAN 100 UNIT/ML 3 ML VIAL (PYX) ONE (11:27)
[2018-06-08] MEDS: ATORVASTATIN CALCIUM 10 MG TABLET PO SCH (11:39)
[2018-06-08] MEDS: ISOSORBIDE MONONITRATE 30 MG TAB.ER.24H PO SCH (11:39)
[2018-06-08] MEDS: ASPIRIN 81 MG TABLET, ENT COATED PO SCH (11:40)
[2018-06-08] MEDS: APIXABAN 5 MG TABLET PO SCH ×2 (11:43→18:00)
[2018-06-08] MEDS: TIMOLOL MALEATE 0.5% OPH SOLN 5 ML OU SCH (12:04)
[2018-06-08] MEDS: DEXTROSE 5%-WATER 1000 ML 1,000 ML with SODIUM BICARBONATE 100 MEQ IV PRN ×2 (15:31)
[2018-06-08 16:24] LABS: ANION GAP 6 (5-19); BLOOD UREA NITROGEN 37 mg/dL (7-20); CALCIUM 8.2 mg/dL (8.4-10.2); CARBON DIOXIDE 13 mmol/L (22-30); CHLORIDE 122 mmol/L (98-107); GLUCOSE 93 mg/dL (75-110); SODIUM 140.9 mmol/L (137-145)
[2018-06-08 16:34] LABS: POTASSIUM 4.8 mmol/L (3.6-5.0)
[2018-06-09] MEDS: DEXTROSE 5%-WATER 1000 ML 1,000 ML with SODIUM BICARBONATE 100 MEQ IV PRN ×4 (02:22→15:22)
[2018-06-09 08:00] LABS: ANION GAP 7 (5-19); BLOOD UREA NITROGEN 34 mg/dL (7-20); CALCIUM 7.5 mg/dL (8.4-10.2); CARBON DIOXIDE 19 mmol/L (22-30); CHLORIDE 116 mmol/L (98-107); SODIUM 141.5 mmol/L (137-145)
[2018-06-09 08:22] LABS: POTASSIUM 3.7 mmol/L (3.6-5.0)
[2018-06-09 08:25] LABS: GLUCOSE 31 mg/dL (75-110)
[2018-06-09] MEDS ORDERED: DEXTROSE 50%-WATER 25 GM/50 ML DISP.SYRIN IV ONE ×2 (09:27→09:37)
[2018-06-09] MEDS: GLIMEPIRIDE 4 MG TABLET PO SCH (09:28)
[2018-06-09] MEDS ORDERED: DEXTROSE 50%-WATER 25 GM/50 ML DISP.SYRIN IV PRN (09:29)
[2018-06-09] MEDS: APIXABAN 5 MG TABLET PO SCH ×2 (09:37→18:10)
[2018-06-09] MEDS: TIMOLOL MALEATE 0.5% OPH SOLN 5 ML OU SCH (09:37)
[2018-06-09] MEDS: ISOSORBIDE MONONITRATE 30 MG TAB.ER.24H PO SCH (09:37)
[2018-06-09] MEDS: ATORVASTATIN CALCIUM 10 MG TABLET PO SCH (09:37)
[2018-06-09] MEDS: ASPIRIN 81 MG TABLET, ENT COATED PO SCH (09:37)
--- NOTE | 2018-06-09 12:38 | EKG REPORT ---
SEVERITY:- ABNORMAL ECG - ACCELERATED JUNCTIONAL RHYTHM RIGHT BUNDLE BRANCH BLOCK ST DEPRESSION, CONSIDER ISCHEMIA, ANT-LAT LDS : Confirmed by: Francia Robbins MD 09-Jun-2018 12:37:58
[2018-06-09] MEDS ORDERED: MAGNESIUM SULFATE/D5W 1 GM/100 ML RTUPB IV ONE (12:57)
--- NOTE | 2018-06-09 12:57 | PDOC CONSULTATION ---
Consultation Consult Date: 06/09/18 Attending physician:: FRANCISCO ROD Consult reason:: Ventricular tachycardia History of Present Illness Admission Date/PCP: 06/06/18 13:30 CRISELDADENISE ZELAYA Patient complains of: Generalized weakness History of Present Illness: ROSALIND COOPER is a 88 year old male, coming in for left leg swelling ongoing for approximately 1 week. Family at bedside patient has a history of dementia the family states the patient has a history of colon cancer with resection states history of blood clots in the past was on blood thinning medication however currently is on not states he has not followed up with his primary care physician the last 2 years. Patient otherwise was prescribed medications for hypertension and other medical issues is currently ran out. Patient resting comfortably denies any pain. Denies any trauma to the leg denies any travel. Patient denies any shortness of breath. Patient was admitted with the above history to the floor when last night he was noted to have frequent ventricular ectopy and a short run of wide-complex tachycardia. I was therefore asked to evaluate this patient. Patient could not add to history. He is noted to be confused. Past Medical History Cardiac Medical History: Reports: Hypertension - MEDICATED Denies: Coronary Artery Disease, Myocardial Infarction Pulmonary Medical History: Denies: Asthma, Bronchitis, Chronic Obstructive Pulmonary Disease (COPD), Pneumonia, Tuberculosis Neurological Medical History: Denies: Seizures Endocrine Medical History: Reports: Diabetes Mellitus Type 2 GI Medical History: Denies: Hepatitis, Hiatal Hernia Musculoskeltal Medical History: Reports: Arthritis Hematology: Denies: Anemia, Sickle Cell Disease Past Surgical History Past Surgical History: Denies: Pacemaker Social History Information Source: Patient Lives with: Family Smoking Status: Never Smoker Frequency of Alcohol Use: None Hx Recreational Drug Use: No Hx Prescription Drug Abuse: No - Advance Directive Resuscitation Status: Full Code Family History Family History: Reviewed & Not Pertinent Parental Family History Reviewed: No Children Family History Reviewed: No Sibling(s) Family History Reviewed.: No - Currently not available. Medication/Allergy Home Medications: Timolol Maleate 1 drop OU QAM 06/06/18 Allergies/Adverse Reactions: No Known Allergies Allergy (Verified 06/06/18 08:25) Review of Systems ROS unobtainable: Due to mental status Physical Exam Vital Signs: Temp Pulse Resp BP Pulse Ox 97.6 F 82 17 130/82 H 99 06/09/18 08:00 06/09/18 08:00 06/09/18 08:00 06/09/18 08:00 06/09/18 08:00 Intake & Output 06/08/18 06/09/18 06/10/18 06:59 06:59 06:59 Intake Total 0655 8 Balance 1673 2094 Weight 54.5 kg 55.6 kg Exam: GENERAL: well-nourished and in no acute distress. Patient is alert, oriented to person but not to time or place. Patient noted to be intermittently confused. HEAD: Atraumatic, normocephalic. EYES: Pupils equal round and reactive to light, extraocular movements intact, sclera anicteric, conjunctiva are normal. ENT: TMs normal, nares patent, oropharynx clear without exudates. Moist mucous membranes. No oral ulcerations or bleeding gums noted NECK: supple without lymphadenopathy or JVD. Trachea is central. No cervical or axillary lymphadenopathy noted. Carotids are 2+ LUNGS: Breath sounds bibasilar fine crackles at bases. No significant dullness noted. CHEST: Palpation of chest wall shows no significant chest wall tenderness. 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 ABDOMEN: Soft, no significant tenderness appreciated, normoactive bowel sounds. No guarding, no rebound. No rigidity noted . No masses appreciated. EXTREMITIES: Pedal pulses are 1-2+, no calf tenderness noted, Trace + pedal edema noted right lower extremity, 1-2+ left lower extremity. No clubbing or cyanosis. NEUROLOGICAL: Patient is alert, on quick exam no focal neurological deficits are noted. PSYCH: Psych exam not performed due to patient's current mental status. SKIN: No significant ecchymosis, rash, ulcerations or signs of pruritus noted. MUSCULOSKELETAL EXAM: No significant joint swelling noted. Results Laboratory Results: 06/08/18 09:23 06/09/18 06:33 06/08/18 06/09/18 06/09/18 15:55 06:33 06:33 Sodium 140.9 141.5 Potassium 4.8 D 3.7 D Chloride 122 H 116 H Carbon Dioxide 13 L 19 L Anion Gap 6 7 BUN 37 H 34 H Creatinine 1.91 H 1.70 H Est GFR ( Amer) 40 L 46 L Est GFR (Non-Af Amer) 33 L 38 L Glucose 93 31 L* Calcium 8.2 L 7.5 L Magnesium 1.5 L 06/09/18 06:33 NT-Pro-B Natriuret Pep 6220 H EKG Comments: Accelerated junctional rhythm, right bundle branch block, T-wave inversion consistent with ischemia. Cannot rule out sinus rhythm. Impressions: Venous Doppler Study 06/06/18 09:21 IMPRESSION: Acute deep vein thrombosis common femoral, femoral and popliteal veins. Assessment & Plan - Diagnosis (1) Ventricular tachycardia Is this a current diagnosis for this admission?: Yes (2) Chronic renal failure Qualifiers: Chronic kidney disease stage: unspecified stage Qualified Code(s): N18.9 - Chronic kidney disease, unspecified Is this a current diagnosis for this admission?: Yes (3) Deep vein thrombosis (DVT) of left lower extremity Qualifiers: Affected thrombotic vein of extremity: femoral Chronicity: acute Qualified Code(s): I82.412 - Acute embolism and thrombosis of left femoral vein Is this a current diagnosis for this admission?: Yes (4) Thrombocytopenia Is this a current diagnosis for this admission?: Yes (5) Dementia Qualifiers: Dementia type: unspecified type Dementia behavioral disturbance: without behavioral disturbance Qualified Code(s): F03.90 - Unspecified dementia without behavioral disturbance Is this a current diagnosis for this admission?: Yes (6) Elevated brain natriuretic peptide (BNP) level Is this a current diagnosis for this admission?: Yes - Notes Notes: Ventricular tachycardia: Patient noted to have this condition. Currently full code. At this point recommend maintaining electrolytes within normal limits. Will obtain 2D echocardiogram to look for any substrate. At this point apart from correcting electrolyte, do not feel any antiarrhythmics except for Ranexa are needed. Chronic renal failure: Currently stable. Continue to monitor renal functions. Thrombocytopenia: Exact etiology not clear. Recommend hematology consult. Dementia: This is a significant problems may need further evaluation. Elevated BNP level: Patient may have underlying cardiomyopathy. Will order a chest x-ray and a stat echocardiogram. - Time Time Spent: 30 to 50 Minutes - CODE STATUS was discussed, patient remains full code. More than 50% of the time spent coordinating care, discussing management plans with involved caregivers. Management plans discussed with involved personnels. Medical decision making was of moderate to high complexity, patient 's has multiple comorbidities. Medications reviewed and adjusted accordingly: Yes
[2018-06-09] MEDS ORDERED: FUROSEMIDE 40 MG TABLET PO ONE (14:51)
--- NOTE | 2018-06-09 15:23 | PDOC PROGRESS REPORT ---
Subjective Progress Note for:: 06/09/18 Subjective:: This patient was admitted with acute DVT of the left leg. He was also found to be hyperkalemic as well as an acute renal failure. Patient has underlying dementia. He was apparently agitated and confused earlier however he remains calm and more interactive and able to carry out conversation today Reason For Visit: ANASTASIIA,HYPERKALEMIA,DVT LT LE Physical Exam Vital Signs: Temp Pulse Resp BP Pulse Ox 97.6 F 82 17 130/82 H 99 06/09/18 08:00 06/09/18 08:00 06/09/18 08:00 06/09/18 08:00 06/09/18 08:00 Intake & Output 06/08/18 06/09/18 06/10/18 06:59 06:59 06:59 Intake Total 1674 2095 Balance 1674 2095 Weight 54.5 kg 55.6 kg General appearance: PRESENT: no acute distress, hard of hearing, thin, other - Elderly and frail Head exam: PRESENT: atraumatic, normocephalic Eye exam: PRESENT: conjunctiva pink, EOMI, PERRLA. ABSENT: scleral icterus Ear exam: PRESENT: normal external ear exam Mouth exam: PRESENT: moist, tongue midline, other - Lower lip lesion Neck exam: ABSENT: carotid bruit, JVD, lymphadenopathy, thyromegaly Respiratory exam: PRESENT: clear to auscultation luis fernando. ABSENT: rales, rhonchi, wheezes Cardiovascular exam: PRESENT: RRR. ABSENT: diastolic murmur, rubs, systolic murmur Pulses: PRESENT: normal dorsalis pedis pul Vascular exam: PRESENT: normal capillary refill GI/Abdominal exam: PRESENT: normal bowel sounds, soft. ABSENT: distended, guarding, mass, organolmegaly, rebound, tenderness Rectal exam: PRESENT: deferred Extremities exam: PRESENT: full ROM, pedal edema, +2 edema, other - Left lower leg swelling. ABSENT: calf tenderness, clubbing Neurological exam: PRESENT: alert, awake, other - confused. ABSENT: motor sensory deficit Psychiatric exam: PRESENT: appropriate affect, normal mood. ABSENT: homicidal ideation, suicidal ideation Skin exam: PRESENT: dry, intact, warm. ABSENT: cyanosis, rash Results Laboratory Results: 06/08/18 09:23 06/09/18 06:33 06/08/18 06/09/18 06/09/18 15:55 06:33 06:33 Sodium 140.9 141.5 Potassium 4.8 D 3.7 D Chloride 122 H 116 H Carbon Dioxide 13 L 19 L Anion Gap 6 7 BUN 37 H 34 H Creatinine 1.91 H 1.70 H Est GFR ( Amer) 40 L 46 L Est GFR (Non-Af Amer) 33 L 38 L Glucose 93 31 L* Calcium 8.2 L 7.5 L Magnesium 1.5 L 06/09/18 06:33 NT-Pro-B Natriuret Pep 6220 H Impressions: Venous Doppler Study 06/06/18 09:21 IMPRESSION: Acute deep vein thrombosis common femoral, femoral and popliteal veins. Assessment & Plan - Time Time Spent with patient: 15-24 minutes Medications reviewed and adjusted accordingly: Yes Anticipated discharge: Acute Rehab Within: within 72 hours - Inpatient Certification Based on my medical assessment, after consideration of the patient's comorbidities, presenting symptoms, or acuity I expect that the services needed warrant INPATIENT care.: Yes Medical Necessity: Need Close Monitoring Due to Risk of Patient Decompensation, Need For Continuous Telemetry Monitoring - Plan Summary Plan Summary: 1. Acute deep venous thrombosis of the left lower extremity. Continue Eliquis 2. Hyperkalemia now resolved. Related to CKD, acidosis. 3. Acute kidney injury on chronic kidney disease stage III. Patient's kidney function continues to improve. Will continue to trend as well as continue cautious IV fluid. 4. Thrombocytopenia is apparently chronic 5. Electrolyte imbalance including acidosis, hyperchloremia, hyperkalemia which is consistent with the acidosis. Continue IV with Bicarb, recheck labs in am 6. Dementia, advanced. Likely unsafe for this patient to be living alone and social service has been consulted for discharge planning. 7. Patient has a lesion on his lower lip on the right side. This should be followed up as outpatient for further evaluation 8.Hypoglycemia 9. Nonsustained V tach- appreciate Cardiology input 10. F/u on echo , BNP elevated, give Lasix 11. Overall prognosis is poor
--- NOTE | 2018-06-09 17:21 | RADIOLOGY REPORT (SQ) ---
EXAM DESCRIPTION: CHEST 2 VIEWS COMPLETED DATE/TIME: 06/09/2018 4:54 pm REASON FOR STUDY: Elevated BNP, evaluate CHF COMPARISON: None. EXAM PARAMETERS: NUMBER OF VIEWS: two views TECHNIQUE: Digital Frontal and Lateral radiographic views of the chest acquired. RADIATION DOSE: NA LIMITATIONS: none FINDINGS: LUNGS AND PLEURA: Indistinct density in the medial right lower lobe and left lung base. P ossible pleural effusions. MEDIASTINUM AND HILAR STRUCTURES: No masses or contour abnormalities. HEART AND VASCULAR STRUCTURES: Heart normal size. No evidence for failure. BONES: No acute findings. HARDWARE: None in the chest. OTHER: No other significant finding. IMPRESSION: INDISTINCT DENSITIES IN THE LUNG BASES, ATELECTASIS VERSUS INFILTRATE. CANNOT EXCLUDE U NDERLYING MASS. POSSIBLE PLEURAL EFFUSIONS. TECHNICAL DOCUMENTATION: JOB ID: [id number] [employer]- All Rights Reserved Reading location - IP/workstation name: [email or web address]
--- NOTE | 2018-06-09 18:50 | XCELERA REPORT ---
[address] [address] Transthoracic Echocardiogram Report Name: ROSALIND COOPER Age: 88 yrs Gender: Male : 1930 Patient Status: Inpatient Patient Location: [address] [place] [address] Study Date: 06/09/2018 03:06 PM Height: 66 in Weight: 122 lb BSA: 1.6 m2 Procedure: A complete two-dimensional transthoracic echocardiogram was performed (2D, M-mode, spectral and color flow Doppler). The study was technically difficult with many images being suboptimal in quality. Reason For Study: v-tach Ordering Physician: GUILHERME MARCUM Performed By: Aly Marr Interpretation Summary The study was technically difficult with many images being suboptimal in quality. The Ejection Fraction estimate is 40-45% Left ventricular systolic function is mildly reduced. There is borderline concentric left ventricular hypertrophy. The left ventricle is grossly normal size. LV diastolic function not assessed. Regional wall motion abnormalities cannot be excluded due to limited visualization. The right ventricle is mild to moderately dilated. The right ventricular systolic function is normal. The right atrium is mild to moderately dilated. The left atrial size is normal. There is a trace amount of mitral regurgitation There is no mitral valve stenosis. There is a mild amount of aortic regurgitation There is no aortic valve stenosis There is a mild amount of tricuspid regurgitation There is mild to moderate pulmonary hypertension by echo Right ventricular systolic pressure is estimated to be elevated at 40-50mmHg. The aortic root is not well visualized but is probably normal size. The inferior vena cava was not well visualized There is no pericardial effusion. MMode/2D Measurements & Calculations RVDd: 3.4 cm LVIDd: 5.1 cm FS: 28.0 % Ao root diam: 3.8 cm IVSd: 0.95 cm LVIDs: 3.7 cm EDV(Teich): 123.0 ml Ao root area: 11.3 cm2 LVPWd: 0.89 cm ESV(Teich): 56.8 ml LA dimension: 2.3 cm EF(Teich): 53.8 % LVOT diam: 2.3 cm LVOT area: 4.2 cm2 Doppler Measurements & Calculations MV E max luca: MV P1/2t max luca: Ao V2 max: AI max luca: 33.6 cm/sec 36.2 cm/sec 102.9 cm/sec 324.3 cm/sec MV A max luca: MV P1/2t: 58.1 msec Ao max PG: AI max P.9 cm/sec MVA(P1/2t): 3.8 cm2 4.2 mmHg 42.1 mmHg MV E/A: 0.48 MV dec slope: FRANCISCO(V,D): 2.3 cm2 AI dec slope: 155.2 cm/sec2 182.4 cm/sec2 AI P1/2t: MV dec time: 612.0 msec 0.19 sec LV V1 max PG: PA V2 max: PI end-d luca: TR max luca: 1.2 mmHg 58.3 cm/sec 126.0 cm/sec 291.8 cm/sec LV V1 max: PA max P.4 mmHg TR max P.9 cm/sec 34.1 mmHg AV P1/2t-pr_phl: MV P1/2t-pr_phl: 612.0 msec 58.1 msec Left Ventricle The left ventricle is grossly normal size. There is borderline concentric left ventricular hypertrophy. Left ventricular systolic function is mildly reduced. The Ejection Fraction estimate is 40-45%. LV diastolic function not assessed. Regional wall motion abnormalities cannot be excluded due to limited visualization. Right Ventricle The right ventricle is mild to moderately dilated. There is normal right ventricular wall thickness. The right ventricular systolic function is normal. Atria The right atrium is mild to moderately dilated. The left atrial size is normal. Interarterial septum not well visualized and not well dopplered. Cannot comment on ASD/PFO presence. Mitral Valve The mitral valve leaflets are sclerotic, but show no functional abnormalities. There is no mitral valve stenosis. There is a trace amount of mitral regurgitation. Aortic Valve The aortic valve is not well visualized secondary to technical limitations. There is no aortic valve stenosis. There is a mild amount of aortic regurgitation. Tricuspid Valve The tricuspid valve is not well visualized, but is grossly normal. There is no tricuspid stenosis. There is a mild amount of tricuspid regurgitation. There is mild to moderate pulmonary hypertension by echo. Right ventricular systolic pressure is estimated to be elevated at 40-50mmHg. Pulmonic Valve The pulmonic valve is not well visualized. Great Vessels The aortic root is not well visualized but is probably normal size. The inferior vena cava was not well visualized. Effusions There is no pericardial effusion. : GUILHERME MARCUM > Guilherme Marcum
[2018-06-09] MEDS ORDERED: GLUCAGON,HUMAN RECOMB 1 MG INJ IM PRN (22:10)
[2018-06-09] MEDS ORDERED: DEXTROSE 50%-WATER SYRINGE 12.5 GM/25 ML DOSE IV PRN (22:10)
[2018-06-09] MEDS ORDERED: DEXTROSE 40% GEL 15 GM TUBE PO PRN (22:10)
[2018-06-09] MEDS ORDERED: DEXTROSE 40% GEL 15 GM TUBE X 2 PO PRN (22:10)
[2018-06-09] MEDS: DEXTROSE 50%-WATER SYRINGE 25 GM/50 ML DOSE IV PRN (22:30)
[2018-06-10] MEDS: DEXTROSE 50%-WATER SYRINGE 25 GM/50 ML DOSE IV PRN (06:53)
[2018-06-10 07:44] LABS: ABSOLUTE EOSINOPHILS # (AUTO) 0.5 10^3/uL (0.0-0.6); ABSOLUTE LYMPHOCYTES (AUTO) 0.9 10^3/uL (0.5-4.7); ABSOLUTE MONOCYTES (AUTO) 0.5 10^3/uL (0.1-1.4); ABSOLUTE NEUT (AUTO) 3.5 10^3/uL (1.7-8.2); BASOPHILS % (AUTO) 0.5 % (0-2); EOSINOPHILS % (AUTO) 9.1 % (0-6); HEMATOCRIT 27.5 % (37.9-51.0); HEMOGLOBIN 9.5 g/dL (13.5-17.0); LYMPHOCYTES % (AUTO) 16.3 % (13-45); MEAN CORPUSCULAR HEMOGLOBIN 33.5 pg (27.0-33.4); MEAN CORPUSCULAR HGB CONC 34.6 g/dL (32.0-36.0); MEAN CORPUSCULAR VOLUME 97 fl (80-97); RED BLOOD COUNT 2.85 10^6/uL (4.35-5.55); RED CELL DISTRIBUTION WIDTH 17.5 % (11.5-14.0); SEGMENTED NEUTROPHILS % (AUTO) 64.1 % (42-78); TOTAL CELLS COUNTED % (AUTO) 100 %; WHITE BLOOD COUNT 5.4 10^3/uL (4.0-10.5)
[2018-06-10 08:02] LABS: BLOOD UREA NITROGEN 35 mg/dL (7-20); CALCIUM 7.2 mg/dL (8.4-10.2); POTASSIUM 3.3 mmol/L (3.6-5.0)
[2018-06-10 08:07] LABS: CARBON DIOXIDE 23 mmol/L (22-30); CHLORIDE 110 mmol/L (98-107); SODIUM 137.1 mmol/L (137-145)
[2018-06-10 08:10] LABS: ANION GAP 4 (5-19)
[2018-06-10 08:11] LABS: GLUCOSE 34 mg/dL (75-110)
[2018-06-10 08:26] LABS: PLATELET COUNT 73 10^3/uL (150-450)
[2018-06-10] MEDS: ASPIRIN 81 MG TABLET, ENT COATED PO SCH (09:36)
[2018-06-10] MEDS: ATORVASTATIN CALCIUM 10 MG TABLET PO SCH (09:37)
[2018-06-10] MEDS: APIXABAN 5 MG TABLET PO SCH ×2 (09:38→17:58)
[2018-06-10] MEDS: TIMOLOL MALEATE 0.5% OPH SOLN 5 ML OU SCH (09:41)
--- NOTE | 2018-06-10 11:20 | PDOC PROGRESS REPORT ---
Subjective Progress Note for:: 06/10/18 Subjective:: Patient remains intermittently confused. Patient seems to be doing better with gradual improvement. Pt is denying any chest arm or neck discomfort. Patient denying any PND, orthopnea. Patient denied any sustained palpitations, dizziness, syncope, near syncope. Patient denying any fever chills. Patient denying any other significant discomfort. Patient is maintaining sinus rhythm. Review of systems: Rest review of systems negative. Medications: Medications have been reviewed. Reason For Visit: ANASTASIIA,HYPERKALEMIA,DVT LT LE Physical Exam Vital Signs: Temp Pulse Resp BP Pulse Ox 97.4 F 78 13 94/53 L 98 06/10/18 09:38 06/10/18 09:38 06/10/18 09:38 06/10/18 09:38 06/10/18 09:38 Intake & Output 06/09/18 06/10/18 06/11/18 06:59 06:59 06:59 Intake Total 2094 1829 Balance 2094 1829 Weight 55.6 kg 57 kg Exam: GENERAL: well-nourished and in no acute distress. Patient is alert, oriented to person but not to time or place. Patient noted to be intermittently confused. HEAD: Atraumatic, normocephalic. EYES: Pupils equal round and reactive to light, extraocular movements intact, sclera anicteric, conjunctiva are normal. ENT: TMs normal, nares patent, oropharynx clear without exudates. Moist mucous membranes. No oral ulcerations or bleeding gums noted NECK: supple without lymphadenopathy or JVD. Trachea is central. No cervical or axillary lymphadenopathy noted. Carotids are 2+ LUNGS: Breath sounds bibasilar fine crackles at bases. No significant dullness noted. CHEST: Palpation of chest wall shows no significant chest wall tenderness. HEART: [place] [employer], No PSH, 2/6 AIDE aortic area, 1/6 sood systolic murmur mitral area, rubs or gallops. ABDOMEN: Soft, no significant tenderness appreciated, normoactive bowel sounds. No guarding, no rebound. No rigidity noted . No masses appreciated. EXTREMITIES: Pedal pulses are 1-2+, no calf tenderness noted, Trace + pedal edema noted right lower extremity, 1-2+ left lower extremity. No clubbing or cyanosis. NEUROLOGICAL: Patient is alert, on quick exam no focal neurological deficits are noted. PSYCH: Psych exam not performed due to patient's current mental status. SKIN: No significant ecchymosis, rash, ulcerations or signs of pruritus noted. MUSCULOSKELETAL EXAM: No significant joint swelling noted. Results Laboratory Results: 06/10/18 06:44 06/10/18 06:44 06/10/18 06/10/18 06:44 06:44 WBC 5.4 RBC 2.85 L Hgb 9.5 L Hct 27.5 L MCV 97 MCH 33.5 H MCHC 34.6 RDW 17.5 H Plt Count 73 L Seg Neutrophils % 64.1 Lymphocytes % 16.3 Monocytes % 10.0 Eosinophils % 9.1 H Basophils % 0.5 Absolute Neutrophils 3.5 Absolute Lymphocytes 0.9 Absolute Monocytes 0.5 Absolute Eosinophils 0.5 Absolute Basophils 0.0 Sodium 137.1 Potassium 3.3 L Chloride 110 H Carbon Dioxide 23 Anion Gap 4 L BUN 35 H Creatinine 1.71 H Est GFR ( Amer) 46 L Est GFR (Non-Af Amer) 38 L Glucose 34 L* Calcium 7.2 L Magnesium 1.6 06/09/18 06/09/18 06:33 13:39 Troponin I 0.041 NT-Pro-B Natriuret Pep 6220 H EKG Comments: Telemetry strips reviewed showed sinus rhythm with frequent APCs Impressions: Venous Doppler Study 06/06/18 09:21 IMPRESSION: Acute deep vein thrombosis common femoral, femoral and popliteal veins. Chest X-Ray 06/09/18 00:00 IMPRESSION: INDISTINCT DENSITIES IN THE LUNG BASES, ATELECTASIS VERSUS INFILTRATE. CANNOT EXCLUDE UNDERLYING MASS. POSSIBLE PLEURAL EFFUSIONS. Assessment & Plan - Diagnosis (1) Ventricular tachycardia Is this a current diagnosis for this admission?: Yes (2) Chronic renal failure Qualifiers: Chronic kidney disease stage: unspecified stage Qualified Code(s): N18.9 - Chronic kidney disease, unspecified Is this a current diagnosis for this admission?: Yes (3) Deep vein thrombosis (DVT) of left lower extremity Qualifiers: Affected thrombotic vein of extremity: femoral Chronicity: acute Qualified Code(s): I82.412 - Acute embolism and thrombosis of left femoral vein Is this a current diagnosis for this admission?: Yes (4) Thrombocytopenia Is this a current diagnosis for this admission?: Yes (5) Dementia Qualifiers: Dementia type: unspecified type Dementia behavioral disturbance: without behavioral disturbance Qualified Code(s): F03.90 - Unspecified dementia without behavioral disturbance Is this a current diagnosis for this admission?: Yes (6) Elevated brain natriuretic peptide (BNP) level Is this a current diagnosis for this admission?: Yes - Notes Notes: Ventricular tachycardia: Patient noted to have this condition. Currently full code. At this point recommend maintaining electrolytes within normal limits. 2D echocardiogram shows mildly depressed LVEF, RV EF could not be adequately assessed but RV is noted to be enlarged. At this point apart from correcting electrolyte, do not feel any antiarrhythmics except for Ranexa are needed. Recommend maintaining good oxygenation as well as keeping electrolytes within normal limits low-dose beta blockers can be considered. Chronic renal failure: Currently stable. Continue to monitor renal functions. Thrombocytopenia: Exact etiology not clear. Recommend hematology consult. Platelet count has been stable. Dementia: This is a significant problems may need further evaluation. Elevated BNP level: Patient may have underlying cardiomyopathy. Patient seems to have mild right-sided CHF based on clinical exam. Continue low-dose diuretic therapy. - Time Time with patient: Greater than 35 minutes - More than 50% of the time spent coordinating care, discussing management plans with involved caregivers. Management plans discussed with involved personnels. Medical decision making was of moderate to high complexity, patient's has multiple comorbidities. Patient remains full code Medications reviewed and adjusted accordingly: Yes
[2018-06-10] MEDS: ISOSORBIDE MONONITRATE 30 MG TAB.ER.24H PO SCH (12:19)
[2018-06-10] MEDS: FUROSEMIDE 20 MG TABLET PO SCH (12:20)
[2018-06-10] MEDS: DEXTROSE 5%-WATER 1000 ML 1,000 ML with SODIUM BICARBONATE 100 MEQ IV PRN ×2 (14:31)
--- NOTE | 2018-06-10 15:56 | PDOC PROGRESS REPORT ---
Subjective Progress Note for:: 06/10/18 Subjective:: This patient was admitted with acute DVT of the left leg. He was also found to be hyperkalemic as well as an acute renal failure. Patient has underlying dementia. He was apparently agitated and confused earlier however he remains calm and more interactive and able to carry out conversation today Reason For Visit: ANASTASIIA,HYPERKALEMIA,DVT LT LE Physical Exam Vital Signs: Temp Pulse Resp BP Pulse Ox 97.9 F 67 15 106/63 100 06/10/18 11:04 06/10/18 11:04 06/10/18 11:04 06/10/18 11:04 06/10/18 11:04 Intake & Output 06/09/18 06/10/18 06/11/18 06:59 06:59 06:59 Intake Total 2094 1829 1099 Balance 2094 1829 1100 Weight 55.6 kg 57 kg General appearance: PRESENT: no acute distress, thin, other - confused Ear exam: PRESENT: normal external ear exam Mouth exam: PRESENT: other - lip lesion Neck exam: ABSENT: carotid bruit, JVD, lymphadenopathy, thyromegaly Respiratory exam: PRESENT: clear to auscultation luis fernando Cardiovascular exam: PRESENT: RRR, +S1, +S2 Rectal exam: PRESENT: deferred Extremities exam: PRESENT: +2 edema, other - Left leg swelling Neurological exam: PRESENT: alert, awake. ABSENT: oriented to person, oriented to place, oriented to time, oriented to situation Psychiatric exam: PRESENT: appropriate affect Results Laboratory Results: 06/10/18 06:44 06/10/18 06:44 06/10/18 06/10/18 06:44 06:44 WBC 5.4 RBC 2.85 L Hgb 9.5 L Hct 27.5 L MCV 97 MCH 33.5 H MCHC 34.6 RDW 17.5 H Plt Count 73 L Seg Neutrophils % 64.1 Lymphocytes % 16.3 Monocytes % 10.0 Eosinophils % 9.1 H Basophils % 0.5 Absolute Neutrophils 3.5 Absolute Lymphocytes 0.9 Absolute Monocytes 0.5 Absolute Eosinophils 0.5 Absolute Basophils 0.0 Sodium 137.1 Potassium 3.3 L Chloride 110 H Carbon Dioxide 23 Anion Gap 4 L BUN 35 H Creatinine 1.71 H Est GFR ( Amer) 46 L Est GFR (Non-Af Amer) 38 L Glucose 34 L* Calcium 7.2 L Magnesium 1.6 06/09/18 06/09/18 06:33 13:39 Troponin I 0.041 NT-Pro-B Natriuret Pep 6220 H Impressions: Venous Doppler Study 06/06/18 09:21 IMPRESSION: Acute deep vein thrombosis common femoral, femoral and popliteal veins. Chest X-Ray 06/09/18 00:00 IMPRESSION: INDISTINCT DENSITIES IN THE LUNG BASES, ATELECTASIS VERSUS INFILTRATE. CANNOT EXCLUDE UNDERLYING MASS. POSSIBLE PLEURAL EFFUSIONS. Assessment & Plan - Time Time Spent with patient: 15-24 minutes Medications reviewed and adjusted accordingly: Yes Anticipated discharge: Acute Rehab Within: within 72 hours - Inpatient Certification Based on my medical assessment, after consideration of the patient's comorbidities, presenting symptoms, or acuity I expect that the services needed warrant INPATIENT care.: Yes Medical Necessity: Need For Continuous Telemetry Monitoring, Risk of Complication if Not Cared For in Hospital - Plan Summary Plan Summary: 1. Acute deep venous thrombosis of the left lower extremity. Continue Eliquis 10mg bid x7days, Day 3 then 5mg bid 2. Hyperkalemia now resolved. Related to CKD, acidosis. 3. Acute kidney injury on chronic kidney disease stage III. Patient's kidney function continues to improve. Will continue to trend as well as continue cautious IV fluid. 4. Thrombocytopenia is apparently chronic 5. Electrolyte imbalance including acidosis, hyperchloremia, hyperkalemia which is consistent with the acidosis. DC Bicarb, as acidosis has resolved. 6. Dementia, advanced. Likely unsafe for this patient to be living alone and social service has been consulted for discharge planning. 7. Patient has a lesion on his lower lip on the right side. This should be followed up as outpatient for further evaluation 8.Hypoglycemia- Cont D5, hold oral hypoglycemic 9. Nonsustained V tach- appreciate Cardiology input. Cont medical management 10. 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 EF 40-45%, BNP elevated, cont Lasix 11. Overall prognosis is poor
[2018-06-10] MEDS: DEXTROSE 5%-WATER 1000 ML 1,000 ML IV PRN (18:21)
[2018-06-11 06:43] LABS: ANION GAP 8 (5-19); BLOOD UREA NITROGEN 38 mg/dL (7-20); CARBON DIOXIDE 23 mmol/L (22-30); CHLORIDE 106 mmol/L (98-107); GLUCOSE 85 mg/dL (75-110); POTASSIUM 3.5 mmol/L (3.6-5.0); SODIUM 136.9 mmol/L (137-145)
[2018-06-11 07:24] LABS: CALCIUM 6.9 mg/dL (8.4-10.2)
--- NOTE | 2018-06-11 08:45 | EKG REPORT ---
SEVERITY:- ABNORMAL ECG - SINUS RHYTHM, can not R/O A FIB, REC REPEAT EKG ATRIAL PREMATURE COMPLEX PROBABLE LEFT ATRIAL ABNORMALITY NONSPECIFIC IVCD WITH LAD CONSIDER ANTEROSEPTAL INFARCT : Confirmed by: Guilherme Carbajal 11-Jun-2018 08:44:29
[2018-06-11] MEDS ORDERED: POTASSIUM CHLORIDE 10 MEQ CAPSULE.ER PO ONE (08:48)
[2018-06-11] MEDS: ISOSORBIDE MONONITRATE 30 MG TAB.ER.24H PO SCH (09:24)
[2018-06-11] MEDS: FUROSEMIDE 20 MG TABLET PO SCH ×2 (09:25→11:09)
[2018-06-11] MEDS: ATORVASTATIN CALCIUM 10 MG TABLET PO SCH (09:26)
[2018-06-11] MEDS: CALCIUM CARBONATE 500 MG TABLET PO SCH ×2 (09:26→18:19)
[2018-06-11] MEDS: ASPIRIN 81 MG TABLET, ENT COATED PO SCH ×3 (09:26→11:09)
[2018-06-11] MEDS: TIMOLOL MALEATE 0.5% OPH SOLN 5 ML OU SCH (09:26)
[2018-06-11] MEDS: METOPROLOL SUCCINATE 25 MG TAB.SR.24H PO SCH (09:26)
[2018-06-11] MEDS: APIXABAN 5 MG TABLET PO SCH ×4 (09:27→18:19)
[2018-06-11] MEDS: DEXTROSE 5%-WATER 1000 ML 1,000 ML IV PRN (14:43)
--- NOTE | 2018-06-11 16:41 | PDOC PROGRESS REPORT ---
Subjective Progress Note for:: 06/11/18 Subjective:: This patient was admitted with acute DVT of the left leg. He was also found to be hyperkalemic as well as an acute renal failure. Patient has underlying dementia. Patient's daughter was actually at the bedside and had a conversation with her today. She wants patient to go to [facility] and she is aware that we are working on it in terms of his insurance and what is available Reason For Visit: ANASTASIIA,HYPERKALEMIA,DVT LT LE Physical Exam Vital Signs: Temp Pulse Resp BP Pulse Ox 98.0 F 78 16 102/58 L 98 06/11/18 08:00 06/11/18 08:00 06/11/18 08:00 06/11/18 08:00 06/11/18 08:00 Intake & Output 06/10/18 06/11/18 06/12/18 06:59 06:59 06:59 Intake Total 1830 3020 1459 Balance 1830 3020 1459 Weight 57 kg 56.2 kg General appearance: PRESENT: no acute distress, well-developed Head exam: PRESENT: atraumatic, normocephalic Ear exam: PRESENT: normal external ear exam Respiratory exam: PRESENT: clear to auscultation luis fernando GI/Abdominal exam: PRESENT: normal bowel sounds, soft. ABSENT: distended, guarding, mass, organolmegaly, rebound, tenderness Rectal exam: PRESENT: deferred Extremities exam: PRESENT: other - Left leg swelling Neurological exam: PRESENT: alert, awake, other - confused Results Laboratory Results: 06/10/18 06:44 06/11/18 05:22 06/11/18 05:22 Sodium 136.9 L Potassium 3.5 L Chloride 106 Carbon Dioxide 23 Anion Gap 8 BUN 38 H Creatinine 1.92 H Est GFR ( Amer) 40 L Est GFR (Non-Af Amer) 33 L Glucose 85 Calcium 6.9 L* 06/09/18 06/09/18 06/11/18 06:33 13:39 05:22 Troponin I 0.041 NT-Pro-B Natriuret Pep 6220 H 5490 H Impressions: Venous Doppler Study 06/06/18 09:21 IMPRESSION: Acute deep vein thrombosis common femoral, femoral and popliteal veins. Chest X-Ray 06/09/18 00:00 IMPRESSION: INDISTINCT DENSITIES IN THE LUNG BASES, ATELECTASIS VERSUS INFILTRATE. CANNOT EXCLUDE UNDERLYING MASS. POSSIBLE PLEURAL EFFUSIONS. Assessment & Plan - Time Time Spent with patient: 15-24 minutes Medications reviewed and adjusted accordingly: Yes Anticipated discharge: SNF Within: within 72 hours - Inpatient Certification Based on my medical assessment, after consideration of the patient's comorbidities, presenting symptoms, or acuity I expect that the services needed warrant INPATIENT care.: Yes Medical Necessity: Significant Comorbidiites Make Outpatient Treatment Too Risky , Risk of Complication if Not Cared For in Hospital - Plan Summary Plan Summary: 1. Acute deep venous thrombosis of the left lower extremity. Continue Eliquis 10mg bid x7days, Day 4 then 5mg bid 2. Hyperkalemia now resolved. Related to CKD, acidosis. 3. Acute kidney injury on chronic kidney disease stage III. Patient's kidney function continues to improve. Will continue to trend as well as continue cautious IV fluid. 4. Thrombocytopenia is apparently chronic. Review of records back to 2011 reveals a platelet count in the 60's. Will cont Asa, dc plavix 5. Electrolyte imbalance including acidosis, hyperchloremia, hyperkalemia which is consistent with the acidosis. Off Bicarb, as acidosis has resolved. 6. Dementia, advanced. Likely unsafe for this patient to be living alone and social service has been consulted for discharge planning. Plan is NH once bed arranged 7. Patient has a lesion on his lower lip on the right side. This should be followed up as outpatient for further evaluation 8.Hypoglycemia- Cont D5, hold oral hypoglycemic 9. Nonsustained V tach- appreciate Cardiology input. Cont medical management 10. 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 EF 40-45%, BNP elevated, cont Lasix 11. Overall prognosis is poor. Discussed code status with daughter and she will discuss with other siblings. Meanwhile he is a full code
--- NOTE | 2018-06-11 22:41 | Progress Note ---
Provider Note Provider Note: Cardiology PROGRESS NOTE by Dr. Francia Robbins on 06/11/2018. SUBJECTIVE: The patient states he is slightly better. There is no recurrence of ventricular tachycardia. The patient is in sinus rhythm. There is no chest pain or discomfort. There is no shortness of breath or symptoms or signs of pulmonary embolism. There is no PND or orthopnea. There is trace left lower extremity edema. Selected Entries 06/11/18 17:11 Temperature 98.6 F Pulse Rate 79 Respiratory 15 Rate Blood Pressure 117/71 Blood Pressure 86 Mean BP Location Left Arm BP Position Supine O2 Sat by Pulse 95 Oximetry Oxygen Delivery Room Air Method HEAD: Head is atraumatic normocephalic. EYES: Pupils are equal round regular reactive to light accommodation. EXTERNAL ocular movements are normal, there is no conjunctival pallor, and no scleral icterus. ENT: Is negative. NECK: Is supple there is no JVD carotids are equal there is no bruits. There is no lymphadenopathy. There is no goiter. Trachea central. LUNGS: Lungs are clear to auscultation percussion, without any rhonchi rales or wheezing. There is no chest wall tenderness. HEART: S1-S2 is heard there is no S3 gallop there is no S4 gallop the systolic murmur left sternal border and the apex there is no rub. ABDOMEN: Soft nontender there is no hepatosplenomegaly, bowel sounds are well heard. EXTREMITIES: Femorals are diminished. There is no femoral bruits neck pulses are diminished. There is trace left lower extremity edema. There is no calf tenderness. There is no cellulitis. There is no sinus or clubbing. CHARGE WEIGHER the patient is conscious seems to be oriented x2 with no focal deficits. PSYCHIATRIC: The patient does not appear to be agitated. In-depth psychiatric exam not done. SKIN: There is no petechia or ecchymosis, no skin rashes or skin lesions. 06/11/18 06/11/18 05:22 05:22 Sodium 136.9 L Potassium 3.5 L Chloride 106 Carbon Dioxide 23 BUN 38 H Creatinine 1.92 H Est GFR (Non-Af Amer) 33 L Glucose 85 Calcium 6.9 L* NT-Pro-B Natriuret Pep 5490 H IMPRESSION/RECOMMENDATION: 1. Paroxysmal ventricular tachycardia: No recurrence. We will continue to observe the patient for this. 2. ACUTE Renal Failure: At present seems to be chronic stage III CKD. 3. LEFT LOWER extremity DVT: Eliquis. 4. CHRONIC thrombocytopenia: There is no evidence of bleeding. Platelets seem to be stable. But would watch carefully since the patient is on Eliquis. 5. Hypertension: Blood pressure well controlled on minimal antihypertensives. 6. Diabetes mellitus: Most likely diet controlled. 7. Mild dementia: Appears to be stable 8. Glaucoma continue Timolol. 9. Mild hypokalemia: Replenish potassium. His medications have been reviewed. Note 40 minutes spent on this patient with more than 50% of time spent in direct patient care. Discussed with other caregiving providers. Medical decision making is of moderate complexity. Will follow with you. Thanking you.
[2018-06-12] MEDS: TIMOLOL MALEATE 0.5% OPH SOLN 5 ML OU SCH (10:17)
[2018-06-12] MEDS: ASPIRIN 81 MG TABLET, ENT COATED PO SCH (10:17)
[2018-06-12] MEDS: METOPROLOL SUCCINATE 25 MG TAB.SR.24H PO SCH (10:17)
[2018-06-12] MEDS: ISOSORBIDE MONONITRATE 30 MG TAB.ER.24H PO SCH (10:18)
[2018-06-12] MEDS: ATORVASTATIN CALCIUM 10 MG TABLET PO SCH (10:18)
[2018-06-12] MEDS: APIXABAN 5 MG TABLET PO SCH ×2 (10:18→17:18)
[2018-06-12] MEDS: CALCIUM CARBONATE 500 MG TABLET PO SCH ×2 (10:18→17:19)
[2018-06-12] MEDS: DEXTROSE 5%-WATER 1000 ML 1,000 ML IV PRN (11:09)
--- NOTE | 2018-06-12 16:57 | EKG REPORT ---
SEVERITY:- ABNORMAL ECG - SINUS RHYTHM LEFT ANTERIOR FASCICULAR BLOCK BORDERLINE R WAVE PROGRESSION, ANTERIOR LEADS : Confirmed by: Francia Robbins MD 12-Jun-2018 16:56:20
--- NOTE | 2018-06-12 18:05 | PDOC PROGRESS REPORT ---
Subjective Progress Note for:: 06/12/18 Subjective:: This patient was admitted with acute DVT of the left leg. He was also found to be hyperkalemic as well as an acute renal failure. Patient has underlying dementia. Patient's daughter was actually at the bedside and had a conversation with her today. She wants [facility] go to [facility] and she is aware that we are working on it in terms of his insurance and what is available Reason For Visit: ANASTASIIA,HYPERKALEMIA,DVT LT LE Physical Exam Vital Signs: Temp Pulse Resp BP Pulse Ox 97.5 F 68 16 97/61 L 94 06/12/18 16:00 06/12/18 16:00 06/12/18 16:00 06/12/18 16:00 06/12/18 16:00 Intake & Output 06/11/18 06/12/18 06/13/18 06:59 06:59 06:59 Intake Total 3020 1680 1459 Balance 3020 1680 1459 Weight 56.2 kg 66.9 kg General appearance: PRESENT: no acute distress, well-developed, well-nourished Head exam: PRESENT: atraumatic, normocephalic Eye exam: PRESENT: conjunctiva pink, EOMI, PERRLA. ABSENT: scleral icterus Ear exam: PRESENT: normal external ear exam Mouth exam: PRESENT: moist, tongue midline Neck exam: ABSENT: carotid bruit, JVD, lymphadenopathy, thyromegaly Respiratory exam: PRESENT: clear to auscultation luis fernando. ABSENT: rales, rhonchi, wheezes Cardiovascular exam: PRESENT: RRR. ABSENT: diastolic murmur, rubs, systolic murmur Pulses: PRESENT: normal dorsalis pedis pul Vascular exam: PRESENT: normal capillary refill GI/Abdominal exam: PRESENT: normal bowel sounds, soft. ABSENT: distended, guarding, mass, organolmegaly, rebound, tenderness Rectal exam: PRESENT: deferred Extremities exam: PRESENT: full ROM. ABSENT: calf tenderness, clubbing, pedal edema Neurological exam: PRESENT: alert, awake, oriented to person, oriented to place , oriented to time, oriented to situation, CN II-XII grossly intact. ABSENT: motor sensory deficit Psychiatric exam: PRESENT: appropriate affect, normal mood. ABSENT: homicidal ideation, suicidal ideation Skin exam: PRESENT: dry, intact, warm. ABSENT: cyanosis, rash Results Laboratory Results: 06/10/18 06:44 06/11/18 05:22 06/09/18 06/09/18 06/11/18 06:33 13:39 05:22 Troponin I 0.041 NT-Pro-B Natriuret Pep 6220 H 5490 H Impressions: Venous Doppler Study 06/06/18 09:21 IMPRESSION: Acute deep vein thrombosis common femoral, femoral and popliteal veins. Chest X-Ray 06/09/18 00:00 IMPRESSION: INDISTINCT DENSITIES IN THE LUNG BASES, ATELECTASIS VERSUS INFILTRATE. CANNOT EXCLUDE UNDERLYING MASS. POSSIBLE PLEURAL EFFUSIONS. Assessment & Plan - Time Time Spent with patient: 15-24 minutes Medications reviewed and adjusted accordingly: Yes Anticipated discharge: Acute Rehab Within: within 48 hours - Inpatient Certification Based on my medical assessment, after consideration of the patient's comorbidities, presenting symptoms, or acuity I expect that the services needed warrant INPATIENT care.: Yes Medical Necessity: Need For Continuous Telemetry Monitoring, Risk of Complication if Not Cared For in Hospital - Plan Summary Plan Summary: 1. Acute deep venous thrombosis of the left lower extremity. Continue Eliquis 10mg bid x7days, Day 5 then 5mg bid 2. Hyperkalemia now resolved. Related to CKD, acidosis. 3. Acute kidney injury on chronic kidney disease stage III. Patient's kidney function improved. Will continue to trend 4. Thrombocytopenia is apparently chronic. Review of records back to 2011 reveals a platelet count in the 60's. Will dc asa. Really dont see what this is adding to regimen 5. Electrolyte imbalance including acidosis, hyperchloremia, hyperkalemia which is consistent with the acidosis. Off Bicarb, as acidosis has resolved. 6. Dementia, advanced. Likely unsafe for this patient to be living alone and social service has been consulted for discharge planning. Plan is NH once bed arranged and patient stable 7. Patient has a lesion on his lower lip on the right side. This should be followed up as outpatient for further evaluation 8.Hypoglycemia- Cont D5, hold oral hypoglycemic 9. Nonsustained V tach- appreciate Cardiology input. Cont medical management 10. 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 EF 40-45%, BNP elevated, cont Lasix 11. Overall prognosis is poor. Awaiting family decision on code status
--- NOTE | 2018-06-12 21:02 | Progress Note ---
Provider Note Provider Note: CARDIOLOGY PROGRESS NOTE: By Dr. Francia Robbins for 06/12/2018. SUBJECTIVE: The patient states he is feeling slightly better. Although he does have dementia he does answer questions appropriately. He denies any chest pain or discomfort there is no shortness of breath there is no PND orthopnea. The patient remains in sinus rhythm and there is no recurrence of ventricular tachycardia. There is no leg edema. Except for mild swelling of the left lower extremity due to his left lower extremity DVT. There is no TIA or CVA symptoms. Selected Entries PHYSICAL EXAMINATION: The patient is well-built, but looks chronically ill. He is in no acute distress. 06/12/18 11:24 Temperature 97.7 F Temperature Oral Source Pulse Rate 68 Respiratory 16 Rate Blood Pressure 108/66 Blood Pressure 80 Mean O2 Sat by Pulse 99 Oximetry Oxygen Delivery Room Air Method HEAD: Head is atraumatic normocephalic. EYES: Pupils are equal round regular reactive to light accommodation. EXTERNAL ocular movements are normal, there is no conjunctival pallor, and no scleral icterus. ENT: Is negative. NECK: Is supple there is no JVD carotids are equal there is no bruits. There is no lymphadenopathy. There is no goiter. Trachea central. LUNGS: Lungs are clear to auscultation percussion, without any rhonchi rales or wheezing. There is no chest wall tenderness. HEART: S1-S2 is heard there is no S3 gallop there is no S4 gallop the systolic murmur left sternal border and the apex there is no rub. ABDOMEN: Soft nontender there is no hepatosplenomegaly, bowel sounds are well heard. EXTREMITIES: Femorals are diminished. There is no femoral bruits neck pulses are diminished. There is trace left lower extremity edema. There is no calf tenderness. There is no cellulitis. There is no sinus or clubbing. PAINT GRINDER the patient is conscious seems to be oriented x2 with no focal deficits. PSYCHIATRIC: The patient does not appear to be agitated. In-depth psychiatric exam not done. 06/12/18 11:26 POC Glucose 123 H IMPRESSION/RECOMMENDATION: 1. Paroxysmal ventricular tachycardia: No recurrence. We will continue to observe the patient for this. 2. ACUTE Renal Failure: At present seems to be chronic stage III CKD. 3. LEFT LOWER extremity DVT: Eliquis. 4. CHRONIC thrombocytopenia: There is no evidence of bleeding. Platelets seem to be stable. But would watch carefully since the patient is on Eliquis. 5. Hypertension: Blood pressure well controlled on minimal antihypertensives. 6. Diabetes mellitus: Most likely diet controlled. 7. Mild dementia: Appears to be stable 8. Glaucoma continue timolol. Medications have been reviewed. Discussed with other caregiving providers on the case. Medical decision making at present is a moderate complexity. Note 40 minutes spent on this patient with more than 50% of time spent in direct patient care. The patient is a full code, and a surrogate healthcare decision maker has not changed. Will sign off/Recommend [facility]PD cardiology follow up..
[2018-06-13 06:19] LABS: ABSOLUTE EOSINOPHILS # (AUTO) 0.3 10^3/uL (0.0-0.6); ABSOLUTE LYMPHOCYTES (AUTO) 0.7 10^3/uL (0.5-4.7); ABSOLUTE MONOCYTES (AUTO) 0.5 10^3/uL (0.1-1.4); ABSOLUTE NEUT (AUTO) 1.8 10^3/uL (1.7-8.2); BASOPHILS % (AUTO) 0.4 % (0-2); HEMATOCRIT 26.6 % (37.9-51.0); LYMPHOCYTES % (AUTO) 21.4 % (13-45); MEAN CORPUSCULAR HEMOGLOBIN 32.6 pg (27.0-33.4); MEAN CORPUSCULAR HGB CONC 33.9 g/dL (32.0-36.0); MEAN CORPUSCULAR VOLUME 96 fl (80-97); MONOCYTES % (AUTO) 15.6 % (3-13); RED BLOOD COUNT 2.76 10^6/uL (4.35-5.55); RED CELL DISTRIBUTION WIDTH 17.2 % (11.5-14.0); SEGMENTED NEUTROPHILS % (AUTO) 52.6 % (42-78); TOTAL CELLS COUNTED % (AUTO) 100 %; WHITE BLOOD COUNT 3.4 10^3/uL (4.0-10.5)
[2018-06-13 06:43] LABS: PLATELET COUNT 75 10^3/uL (150-450)
[2018-06-13 06:43] LABS: ANION GAP 7 (5-19); BLOOD UREA NITROGEN 46 mg/dL (7-20); CARBON DIOXIDE 23 mmol/L (22-30); CHLORIDE 104 mmol/L (98-107); GLUCOSE 96 mg/dL (75-110); POTASSIUM 3.8 mmol/L (3.6-5.0); SODIUM 133.5 mmol/L (137-145)
[2018-06-13 06:57] LABS: CALCIUM 6.9 mg/dL (8.4-10.2)
[2018-06-13] MEDS: APIXABAN 5 MG TABLET PO SCH ×2 (10:00→17:34)
[2018-06-13] MEDS: ATORVASTATIN CALCIUM 10 MG TABLET PO SCH (10:03)
[2018-06-13] MEDS: ISOSORBIDE MONONITRATE 30 MG TAB.ER.24H PO SCH (10:04)
[2018-06-13] MEDS: ASPIRIN 81 MG TABLET, ENT COATED PO SCH (10:04)
[2018-06-13] MEDS: TIMOLOL MALEATE 0.5% OPH SOLN 5 ML OU SCH (10:05)
[2018-06-13] MEDS: METOPROLOL SUCCINATE 25 MG TAB.SR.24H PO SCH (10:05)
[2018-06-13] MEDS: CALCIUM CARBONATE 500 MG TABLET PO SCH ×2 (10:05→17:34)
[2018-06-13] MEDS: FUROSEMIDE 20 MG TABLET PO SCH (10:07)
--- NOTE | 2018-06-13 19:03 | PDOC PROGRESS REPORT ---
Subjective Progress Note for:: 06/13/18 Subjective:: This patient was admitted with acute DVT of the left leg. He was also found to be hyperkalemic as well as an acute renal failure. Patient has underlying dementia. Patient's daughter was actually at the bedside and had a conversation with her today. She wants patient to go to [facility] and she is aware that we are working on it in terms of his insurance and what is available Patient appears to be progressing as expected. Physical therapy evaluation done today. It appears that once a bed is available if patient continues to be stable he can be discharged to [facility]. Reason For Visit: ANASTASIIA,HYPERKALEMIA,DVT LT LE Physical Exam Vital Signs: Temp Pulse Resp BP Pulse Ox 98.0 F 66 18 101/59 L 93 06/13/18 16:21 06/13/18 16:21 06/13/18 16:21 06/13/18 16:21 06/13/18 16:21 Intake & Output 06/12/18 06/13/18 06/14/18 06:59 06:59 06:59 Intake Total 1680 1459 1681 Balance 1680 1459 1681 Weight 66.9 kg 66.9 kg General appearance: PRESENT: no acute distress, well-developed Head exam: PRESENT: atraumatic, normocephalic Eye exam: PRESENT: conjunctiva pink, EOMI, PERRLA. ABSENT: scleral icterus Ear exam: PRESENT: normal external ear exam Mouth exam: PRESENT: moist, tongue midline Neck exam: ABSENT: carotid bruit, JVD, lymphadenopathy, thyromegaly Respiratory exam: PRESENT: clear to auscultation luis fernando. ABSENT: rales, rhonchi, wheezes Cardiovascular exam: PRESENT: RRR, +S1, +S2. ABSENT: diastolic murmur, rubs, systolic murmur Pulses: PRESENT: normal dorsalis pedis pul Vascular exam: PRESENT: normal capillary refill GI/Abdominal exam: PRESENT: normal bowel sounds, soft. ABSENT: distended, guarding, mass, organolmegaly, rebound, tenderness Rectal exam: PRESENT: deferred Extremities exam: PRESENT: full ROM, +2 edema - Left lower extremity. ABSENT: calf tenderness, clubbing, pedal edema Musculoskeletal exam: PRESENT: other - Left leg swelling and edema improved Neurological exam: PRESENT: alert, awake. ABSENT: motor sensory deficit Psychiatric exam: PRESENT: appropriate affect, normal mood. ABSENT: homicidal ideation, suicidal ideation Skin exam: PRESENT: dry, intact, warm. ABSENT: cyanosis, rash Results Laboratory Results: 06/13/18 05:11 06/13/18 05:16 06/13/18 06/13/18 05:11 05:16 WBC 3.4 L RBC 2.76 L Hgb 9.0 L Hct 26.6 L MCV 96 MCH 32.6 MCHC 33.9 RDW 17.2 H Plt Count 75 L Seg Neutrophils % 52.6 Lymphocytes % 21.4 Monocytes % 15.6 H Eosinophils % 10.0 H Basophils % 0.4 Absolute Neutrophils 1.8 Absolute Lymphocytes 0.7 Absolute Monocytes 0.5 Absolute Eosinophils 0.3 Absolute Basophils 0.0 Sodium 133.5 L Potassium 3.8 Chloride 104 Carbon Dioxide 23 Anion Gap 7 BUN 46 H Creatinine 2.11 H Est GFR ( Amer) 36 L Est GFR (Non-Af Amer) 30 L Glucose 96 Calcium 6.9 L* Magnesium 1.4 L 06/09/18 06/09/18 06/11/18 06:33 13:39 05:22 Troponin I 0.041 NT-Pro-B Natriuret Pep 6220 H 5490 H 06/13/18 05:11 Troponin I NT-Pro-B Natriuret Pep 5980 H Impressions: Venous Doppler Study 06/06/18 09:21 IMPRESSION: Acute deep vein thrombosis common femoral, femoral and popliteal veins. Chest X-Ray 06/09/18 00:00 IMPRESSION: INDISTINCT DENSITIES IN THE LUNG BASES, ATELECTASIS VERSUS INFILTRATE. CANNOT EXCLUDE UNDERLYING MASS. POSSIBLE PLEURAL EFFUSIONS. Assessment & Plan - Time Time Spent with patient: 15-24 minutes Anticipated discharge: SNF Within: within 48 hours - Inpatient Certification Based on my medical assessment, after consideration of the patient's comorbidities, presenting symptoms, or acuity I expect that the services needed warrant INPATIENT care.: Yes Medical Necessity: Need For Continuous Telemetry Monitoring, Risk of Complication if Not Cared For in Hospital - Plan Summary Plan Summary: 1. Acute deep venous thrombosis of the left lower extremity. Continue Eliquis 10mg bid x7days, Day 6 then 5mg bid 2. Hyperkalemia resolved. Related to CKD, acidosis. 3. Acute kidney injury on chronic kidney disease stage III. Patient's kidney function improved. Will continue to trend 4. Thrombocytopenia is chronic. Review of records back to 2011 reveals a platelet count in the 60's. 5. Electrolyte imbalance including acidosis, hyperchloremia, hyperkalemia which is consistent with the acidosis.. 6. Dementia, advanced. Likely unsafe for this patient to be living alone and social service has been consulted for discharge planning. Plan is NH once bed arranged and patient stable 7. Patient has a lesion on his lower lip on the right side. This should be followed up as outpatient for further evaluation 8.Hypoglycemia- Off D5, hold oral hypoglycemic, start SSI when appropriate 9. Nonsustained V tach- appreciate Cardiology input. Cont medical management 10. 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 EF 40-45%, BNP elevated, cont Lasix 11. Overall prognosis is poor. Awaiting family decision on code status
[2018-06-14] MEDS: ISOSORBIDE MONONITRATE 30 MG TAB.ER.24H PO SCH (10:19)
[2018-06-14] MEDS: ATORVASTATIN CALCIUM 10 MG TABLET PO SCH (10:19)
[2018-06-14] MEDS: METOPROLOL SUCCINATE 25 MG TAB.SR.24H PO SCH (10:19)
[2018-06-14] MEDS: CALCIUM CARBONATE 500 MG TABLET PO SCH ×2 (10:19→18:41)
[2018-06-14] MEDS: FUROSEMIDE 20 MG TABLET PO SCH (10:19)
[2018-06-14] MEDS: APIXABAN 5 MG TABLET PO SCH ×2 (10:20→18:41)
[2018-06-14] MEDS: ASPIRIN 81 MG TABLET, ENT COATED PO SCH (10:20)
[2018-06-14] MEDS: TIMOLOL MALEATE 0.5% OPH SOLN 5 ML OU SCH (10:20)
--- NOTE | 2018-06-14 10:49 | PDOC PROGRESS REPORT ---
Subjective Progress Note for:: 06/14/18 Subjective:: This patient was admitted with acute DVT of the left leg. He was also found to be hyperkalemic as well as an acute renal failure. Patient has underlying dementia. Patient's daughter wants [facility] to go to [facility] and she is aware that we are working on it in terms of his insurance and what is available Patient appears to be progressing as expected. Physical therapy evaluation done has been done. It appears that once a bed is available if patient continues to be stable he can be discharged to [facility]. Reason For Visit: ANASTASIIA,HYPERKALEMIA,DVT LT LE Physical Exam Vital Signs: Temp Pulse Resp BP Pulse Ox 97.6 F 88 16 119/77 100 06/14/18 08:00 06/14/18 08:00 06/14/18 08:00 06/14/18 08:00 06/14/18 08:00 Intake & Output 06/13/18 06/14/18 06/15/18 06:59 06:59 06:59 Intake Total 1459 2000 Output Total 1 Balance 1459 1999 Weight 66.9 kg 67.2 kg General appearance: PRESENT: no acute distress, hard of hearing, well-nourished , other - elderly and frail Head exam: PRESENT: atraumatic, normocephalic Eye exam: PRESENT: conjunctiva pink, EOMI, PERRLA. ABSENT: scleral icterus Ear exam: PRESENT: normal external ear exam Mouth exam: PRESENT: moist, tongue midline, other - lower lip lesion Neck exam: ABSENT: carotid bruit, JVD, lymphadenopathy, thyromegaly Respiratory exam: PRESENT: clear to auscultation luis fernando. ABSENT: rales, rhonchi, wheezes Cardiovascular exam: PRESENT: RRR, +S1, +S2. ABSENT: diastolic murmur, rubs, systolic murmur Pulses: PRESENT: normal dorsalis pedis pul Vascular exam: PRESENT: normal capillary refill GI/Abdominal exam: PRESENT: normal bowel sounds, soft. ABSENT: distended, guarding, mass, organolmegaly, rebound, tenderness Rectal exam: PRESENT: deferred Extremities exam: PRESENT: full ROM, other - Left leg swelling Posotive L calf cord, no tenderness. ABSENT: calf tenderness, clubbing, pedal edema Neurological exam: PRESENT: alert, awake. ABSENT: motor sensory deficit Psychiatric exam: PRESENT: appropriate affect, normal mood Skin exam: PRESENT: dry, intact, warm. ABSENT: cyanosis, rash Results Laboratory Results: 06/13/18 05:11 06/13/18 05:16 06/09/18 06/09/18 06/11/18 06:33 13:39 05:22 Troponin I 0.041 NT-Pro-B Natriuret Pep 6220 H 5490 H 06/13/18 05:11 Troponin I NT-Pro-B Natriuret Pep 5980 H Impressions: Venous Doppler Study 06/06/18 09:21 IMPRESSION: Acute deep vein thrombosis common femoral, femoral and popliteal veins. Chest X-Ray 06/09/18 00:00 IMPRESSION: INDISTINCT DENSITIES IN THE LUNG BASES, ATELECTASIS VERSUS INFILTRATE. CANNOT EXCLUDE UNDERLYING MASS. POSSIBLE PLEURAL EFFUSIONS. Assessment & Plan - Time Time Spent with patient: 15-24 minutes Medications reviewed and adjusted accordingly: Yes Anticipated discharge: SNF Within: within 48 hours - Plan Summary Plan Summary: 1. Acute deep venous thrombosis of the left lower extremity. Continue Eliquis 10mg bid x7days, Day 7 then 5mg bid 2. Hyperkalemia resolved. Related to CKD, acidosis. 3. Acute kidney injury on chronic kidney disease stage III. Patient's kidney function slightly worse today. Will hold Lasix dose in am Will continue to trend 4. Thrombocytopenia is chronic. Review of records back to 2011 reveals a platelet count in the 60's. Currently 75k. Also dc ASA 5. Electrolyte imbalance including acidosis, hyperchloremia, hyperkalemia which is consistent with the acidosis.. 6. Dementia, advanced. Likely unsafe for this patient to be living alone and social service has been consulted for discharge planning. Plan is [facility] once bed arranged and patient stable 7. Patient has a lesion on his lower lip on the right side. This should be followed up as outpatient for further evaluation 8.Hypoglycemia- Off D5, hold oral hypoglycemic, start SSI when appropriate 9. Nonsustained V tach- appreciate Cardiology input. Cont medical management 10. 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 EF 40-45%, BNP elevated, restart Lasix as appropriate 11. Overall prognosis is poor. Awaiting family decision on code status 12. Hypomagnesemia- replace 13. Hypocalcemia- TP level is actually WNL. Has been started on Calcium 14. Anemia, negative occult blood,check iron stores 15. Conservative management is probably the best course of action in this delightful pleasant elderly gentleman.
[2018-06-14] MEDS ORDERED: ACETAMINOPHEN 325 MG TABLET PO PRN (10:54)
[2018-06-14] MEDS ORDERED: ONDANSETRON HCL INJ/PF 4 MG/2 ML SDV IV PRN (11:00)
[2018-06-14] MEDS: MAGNESIUM SULFATE/D5W 1 GM/100 ML RTUPB IV SCH ×2 (11:44→14:07)
[2018-06-15 07:03] LABS: ABSOLUTE EOSINOPHILS # (AUTO) 0.3 10^3/uL (0.0-0.6); ABSOLUTE LYMPHOCYTES (AUTO) 0.7 10^3/uL (0.5-4.7); ABSOLUTE MONOCYTES (AUTO) 0.5 10^3/uL (0.1-1.4); ABSOLUTE NEUT (AUTO) 2.2 10^3/uL (1.7-8.2); ABSOLUTE RETICS # 0.026 10^6/uL (0.028-0.122); BASOPHILS % (AUTO) 0.2 % (0-2); EOSINOPHILS % (AUTO) 7.1 % (0-6); HEMATOCRIT 26.6 % (37.9-51.0); LYMPHOCYTES % (AUTO) 19.7 % (13-45); MEAN CORPUSCULAR HEMOGLOBIN 33.2 pg (27.0-33.4); MEAN CORPUSCULAR HGB CONC 33.9 g/dL (32.0-36.0); MEAN CORPUSCULAR VOLUME 98 fl (80-97); MONOCYTES % (AUTO) 12.6 % (3-13); RED BLOOD COUNT 2.72 10^6/uL (4.35-5.55); RED CELL DISTRIBUTION WIDTH 17.1 % (11.5-14.0); RETICULOCYTE COUNT (AUTO) 0.94 % (0.66-2.85); SEGMENTED NEUTROPHILS % (AUTO) 60.4 % (42-78); TOTAL CELLS COUNTED % (AUTO) 100 %; WHITE BLOOD COUNT 3.6 10^3/uL (4.0-10.5)
[2018-06-15 07:16] LABS: ANION GAP 8 (5-19); BLOOD UREA NITROGEN 61 mg/dL (7-20); CALCIUM 7.3 mg/dL (8.4-10.2); CARBON DIOXIDE 24 mmol/L (22-30); CHLORIDE 104 mmol/L (98-107); GLUCOSE 94 mg/dL (75-110); POTASSIUM 4.9 mmol/L (3.6-5.0); SODIUM 136.3 mmol/L (137-145)
[2018-06-15 07:53] LABS: PLATELET COUNT 85 10^3/uL (150-450)
[2018-06-15 08:23] LABS: FOLATE 4.79 ng/mL (>2.76)
[2018-06-15] MEDS: METOPROLOL SUCCINATE 25 MG TAB.SR.24H PO SCH (10:52)
[2018-06-15] MEDS: ISOSORBIDE MONONITRATE 30 MG TAB.ER.24H PO SCH (10:52)
[2018-06-15] MEDS: ATORVASTATIN CALCIUM 10 MG TABLET PO SCH (10:52)
[2018-06-15] MEDS: CALCIUM CARBONATE 500 MG TABLET PO SCH ×2 (10:52→18:27)
[2018-06-15] MEDS: APIXABAN 5 MG TABLET PO SCH ×2 (10:53→18:27)
--- NOTE | 2018-06-15 13:41 | PDOC PROGRESS REPORT ---
Subjective Progress Note for:: 06/15/18 Subjective:: Patient appears comfortable He has chronic dementia he is in no distress whatsoever Reason For Visit: ANASTASIIA,HYPERKALEMIA,DVT LT LE Physical Exam Vital Signs: Temp Pulse Resp BP Pulse Ox 97.4 F 62 15 120/66 100 06/15/18 08:22 06/15/18 08:22 06/15/18 08:22 06/15/18 08:22 06/15/18 08:22 Intake & Output 06/14/18 06/15/18 06/16/18 06:59 06:59 06:59 Intake Total 2000 1518 Output Total 1 Balance 1999 1518 Weight 148 lb 2.41 oz 146 lb 13.246 oz General appearance: PRESENT: no acute distress, cooperative Head exam: PRESENT: atraumatic, normocephalic Eye exam: PRESENT: conjunctiva pink, EOMI, PERRLA. ABSENT: scleral icterus Ear exam: PRESENT: normal external ear exam Mouth exam: PRESENT: moist, tongue midline Neck exam: ABSENT: carotid bruit, JVD, lymphadenopathy, thyromegaly Respiratory exam: PRESENT: clear to auscultation luis fernando. ABSENT: rales, rhonchi, wheezes Cardiovascular exam: PRESENT: RRR. ABSENT: diastolic murmur, rubs, systolic murmur Pulses: PRESENT: normal dorsalis pedis pul Vascular exam: PRESENT: normal capillary refill GI/Abdominal exam: PRESENT: normal bowel sounds, soft. ABSENT: distended, guarding, mass, organolmegaly, rebound, tenderness Rectal exam: PRESENT: deferred Extremities exam: PRESENT: pedal edema - Left lower extremity Neurological exam: PRESENT: other - Chronic dementia Results Laboratory Results: 06/15/18 06:25 06/15/18 06:25 06/15/18 06/15/18 06:25 06:25 WBC 3.6 L RBC 2.72 L Hgb 9.0 L Hct 26.6 L MCV 98 H MCH 33.2 MCHC 33.9 RDW 17.1 H Plt Count 85 L Seg Neutrophils % 60.4 Lymphocytes % 19.7 Monocytes % 12.6 Eosinophils % 7.1 H Basophils % 0.2 Absolute Neutrophils 2.2 Absolute Lymphocytes 0.7 Absolute Monocytes 0.5 Absolute Eosinophils 0.3 Absolute Basophils 0.0 Retic Count (auto) 0.94 Absolute Retic 0.026 L Sodium 136.3 L Potassium 4.9 Chloride 104 Carbon Dioxide 24 Anion Gap 8 BUN 61 H Creatinine 2.07 H Est GFR ( Amer) 37 L Est GFR (Non-Af Amer) 30 L Glucose 94 Calcium 7.3 L Magnesium 1.9 Iron 49.0 TIBC 199 L % Saturation 25 Ferritin 612.00 H Vitamin B12 204.0 L Folate 4.79 06/09/18 06/09/18 06/11/18 06:33 13:39 05:22 Troponin I 0.041 NT-Pro-B Natriuret Pep 6220 H 5490 H 06/13/18 06/15/18 05:11 06:25 Troponin I NT-Pro-B Natriuret Pep 5980 H 7460 H Impressions: Venous Doppler Study 06/06/18 09:21 IMPRESSION: Acute deep vein thrombosis common femoral, femoral and popliteal veins. Chest X-Ray 06/09/18 00:00 IMPRESSION: INDISTINCT DENSITIES IN THE LUNG BASES, ATELECTASIS VERSUS INFILTRATE. CANNOT EXCLUDE UNDERLYING MASS. POSSIBLE PLEURAL EFFUSIONS. Assessment & Plan - Plan Summary Plan Summary: 1. Acute deep venous thrombosis of the left lower extremity. Continue Eliquis 2. Hyperkalemia resolved. Related to CKD, acidosis. 3. Acute kidney injury on chronic kidney disease stage III. Continue to monitor 4. Thrombocytopenia is chronic 5. Electrolyte imbalance including acidosis, hyperchloremia, hyperkalemia which is consistent with the acidosis.. 6. Dementia, advanced. Plan is NH once bed arranged 7. Patient has a lesion on his lower lip on the right side. This should be followed up as outpatient for further evaluation 8.Hypoglycemia- Off D5, holding oral hypoglycemic, start SSI when appropriate 9. Nonsustained V tach- appreciate Cardiology input. Cont medical management 10. 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 EF 40-45%, BNP elevated, restart Lasix as appropriate 11. Overall prognosis is poor. 12. Hypomagnesemia- replace as needed 13. Hypocalcemia- Has been started on Calcium 14. Anemia, negative occult blood,check iron stores 15. Conservative management is probably the best course of action
[2018-06-15] MEDS: TIMOLOL MALEATE 0.5% OPH SOLN 5 ML OU SCH (13:56)
[2018-06-16 05:52] LABS: HEMATOCRIT 25.1 % (37.9-51.0); HEMOGLOBIN 8.5 g/dL (13.5-17.0); MEAN CORPUSCULAR HEMOGLOBIN 33.1 pg (27.0-33.4); MEAN CORPUSCULAR VOLUME 97 fl (80-97); RED BLOOD COUNT 2.57 10^6/uL (4.35-5.55); RED CELL DISTRIBUTION WIDTH 16.3 % (11.5-14.0); WHITE BLOOD COUNT 3.9 10^3/uL (4.0-10.5)
[2018-06-16 06:13] LABS: ALANINE AMINOTRANSFERASE 34 U/L (21-72); ALBUMIN 2.3 g/dL (3.5-5.0); ALKALINE PHOSPHATASE 165 U/L (38-126); ANION GAP 8 (5-19); ASPARTATE AMINO TRANSFERASE 26 U/L (17-59); BILIRUBIN,DIRECT 0.5 mg/dL (0.0-0.4); BILIRUBIN,TOTAL 0.7 mg/dL (0.2-1.3); BLOOD UREA NITROGEN 66 mg/dL (7-20); CALCIUM 7.2 mg/dL (8.4-10.2); CARBON DIOXIDE 21 mmol/L (22-30); CHLORIDE 106 mmol/L (98-107); GLUCOSE 110 mg/dL (75-110); POTASSIUM 4.4 mmol/L (3.6-5.0); SODIUM 134.5 mmol/L (137-145); TOTAL PROTEIN 4.8 g/dL (6.3-8.2)
[2018-06-16 06:20] LABS: PLATELET COUNT 77 10^3/uL (150-450)
[2018-06-16] MEDS: ISOSORBIDE MONONITRATE 30 MG TAB.ER.24H PO SCH (09:48)
[2018-06-16] MEDS: ATORVASTATIN CALCIUM 10 MG TABLET PO SCH (09:49)
[2018-06-16] MEDS: METOPROLOL SUCCINATE 25 MG TAB.SR.24H PO SCH (09:49)
[2018-06-16] MEDS: CALCIUM CARBONATE 500 MG TABLET PO SCH ×2 (09:49→17:06)
[2018-06-16] MEDS: APIXABAN 5 MG TABLET PO SCH ×2 (09:49→17:06)
[2018-06-16] MEDS: TIMOLOL MALEATE 0.5% OPH SOLN 5 ML OU SCH (09:50)
[2018-06-16] MEDS: FUROSEMIDE 20 MG TABLET PO SCH (09:50)
--- NOTE | 2018-06-16 10:47 | PDOC PROGRESS REPORT ---
Subjective Progress Note for:: 06/16/18 Subjective:: Patient clinical status has not changed Is chronically demented but pleasant and appears comfortable Reason For Visit: ANASTASIIA,HYPERKALEMIA,DVT LT LE Physical Exam Vital Signs: Temp Pulse Resp BP Pulse Ox 97.4 F 66 16 115/63 100 06/16/18 08:20 06/16/18 08:20 06/16/18 08:20 06/16/18 08:20 06/16/18 08:20 Intake & Output 06/15/18 06/16/18 06/17/18 06:59 06:59 06:59 Intake Total 1518 1367 Balance 1518 1367 Weight 146 lb 13.246 oz 146 lb 9.718 oz General appearance: PRESENT: no acute distress, cooperative Head exam: PRESENT: atraumatic Eye exam: ABSENT: conjunctival injection Ear exam: ABSENT: bleeding Neck exam: ABSENT: meningismus, tracheostomy Respiratory exam: PRESENT: clear to auscultation luis fernando. ABSENT: accessory muscle use Cardiovascular exam: PRESENT: RRR GI/Abdominal exam: PRESENT: normal bowel sounds, soft. ABSENT: tenderness Rectal exam: PRESENT: deferred Extremities exam: PRESENT: +1 edema - Left leg Neurological exam: PRESENT: other - Chronic dementia Results Laboratory Results: 06/16/18 04:35 06/16/18 04:35 06/16/18 06/16/18 04:35 04:35 WBC 3.9 L RBC 2.57 L Hgb 8.5 L Hct 25.1 L MCV 97 MCH 33.1 MCHC 34.0 RDW 16.3 H Plt Count 77 L Sodium 134.5 L Potassium 4.4 Chloride 106 Carbon Dioxide 21 L Anion Gap 8 BUN 66 H Creatinine 2.14 H Est GFR ( Amer) 35 L Est GFR (Non-Af Amer) 29 L Glucose 110 Calcium 7.2 L Total Bilirubin 0.7 AST 26 ALT 34 Alkaline Phosphatase 165 H Total Protein 4.8 L Albumin 2.3 L 06/09/18 06/09/18 06/11/18 06:33 13:39 05:22 Troponin I 0.041 NT-Pro-B Natriuret Pep 6220 H 5490 H 06/13/18 06/15/18 05:11 06:25 Troponin I NT-Pro-B Natriuret Pep 5980 H 7460 H Impressions: Venous Doppler Study 06/06/18 09:21 IMPRESSION: Acute deep vein thrombosis common femoral, femoral and popliteal veins. Chest X-Ray 06/09/18 00:00 IMPRESSION: INDISTINCT DENSITIES IN THE LUNG BASES, ATELECTASIS VERSUS INFILTRATE. CANNOT EXCLUDE UNDERLYING MASS. POSSIBLE PLEURAL EFFUSIONS. Assessment & Plan - Diagnosis (1) Chronic renal failure Qualifiers: Chronic kidney disease stage: unspecified stage Qualified Code(s): N18.9 - Chronic kidney disease, unspecified Is this a current diagnosis for this admission?: Yes (2) Deep vein thrombosis (DVT) of left lower extremity Qualifiers: Affected thrombotic vein of extremity: femoral Chronicity: acute Qualified Code(s): I82.412 - Acute embolism and thrombosis of left femoral vein Is this a current diagnosis for this admission?: Yes (3) Dementia Qualifiers: Dementia type: unspecified type Dementia behavioral disturbance: without behavioral disturbance Qualified Code(s): F03.90 - Unspecified dementia without behavioral disturbance Is this a current diagnosis for this admission?: Yes (4) Hyperkalemia Is this a current diagnosis for this admission?: Yes (5) Thrombocytopenia Is this a current diagnosis for this admission?: Yes - Plan Summary Plan Summary: DVT of the left leg: Continue Eliquis Hypokalemia: Resolved Acute kidney injury/chronic kidney disease stage III: Improved and stable Thrombocytopenia: Chronic and stable Advanced dementia: Plan for [facility] placement Nonsustained V. tach: Seen by cardiology. Continue medical management Chronic systolic CHF: Continue current management Poor functional capacity Poor prognosis
[2018-06-17 08:10] LABS: HEMATOCRIT 24.8 % (37.9-51.0); HEMOGLOBIN 8.5 g/dL (13.5-17.0); MEAN CORPUSCULAR HEMOGLOBIN 33.1 pg (27.0-33.4); MEAN CORPUSCULAR HGB CONC 34.1 g/dL (32.0-36.0); MEAN CORPUSCULAR VOLUME 97 fl (80-97); RED BLOOD COUNT 2.56 10^6/uL (4.35-5.55); RED CELL DISTRIBUTION WIDTH 16.6 % (11.5-14.0); WHITE BLOOD COUNT 4.5 10^3/uL (4.0-10.5)
[2018-06-17 08:16] LABS: ANION GAP 5 (5-19); BLOOD UREA NITROGEN 72 mg/dL (7-20); CALCIUM 7.3 mg/dL (8.4-10.2); CARBON DIOXIDE 23 mmol/L (22-30); CHLORIDE 107 mmol/L (98-107); GLUCOSE 104 mg/dL (75-110); POTASSIUM 4.2 mmol/L (3.6-5.0); SODIUM 134.7 mmol/L (137-145)
--- NOTE | 2018-06-17 08:19 | PDOC PROGRESS REPORT ---
Subjective Progress Note for:: 06/17/18 Subjective:: Patient continues to be stable clinically Pleasant and comfortable Tolerating diet Chronic dementia Reason For Visit: ANASTASIIA,HYPERKALEMIA,DVT LT LE Physical Exam Vital Signs: Temp Pulse Resp BP Pulse Ox 98.1 F 59 L 15 115/61 97 06/17/18 03:30 06/17/18 07:00 06/17/18 03:30 06/17/18 03:30 06/17/18 03:30 Intake & Output 06/16/18 06/17/18 06/18/18 06:59 06:59 06:59 Intake Total 1367 1081 Balance 1367 1081 Weight 146 lb 9.718 oz 146 lb 6.191 oz General appearance: PRESENT: no acute distress, cooperative Head exam: PRESENT: atraumatic, normocephalic Eye exam: ABSENT: conjunctival injection Respiratory exam: ABSENT: accessory muscle use Results Laboratory Results: 06/09/18 06/09/18 06/11/18 06:33 13:39 05:22 Troponin I 0.041 NT-Pro-B Natriuret Pep 6220 H 5490 H 06/13/18 06/15/18 05:11 06:25 Troponin I NT-Pro-B Natriuret Pep 5980 H 7460 H Impressions: Venous Doppler Study 06/06/18 09:21 IMPRESSION: Acute deep vein thrombosis common femoral, femoral and popliteal veins. Chest X-Ray 06/09/18 00:00 IMPRESSION: INDISTINCT DENSITIES IN THE LUNG BASES, ATELECTASIS VERSUS INFILTRATE. CANNOT EXCLUDE UNDERLYING MASS. POSSIBLE PLEURAL EFFUSIONS. Assessment & Plan - Diagnosis (1) Chronic renal failure Qualifiers: Chronic kidney disease stage: unspecified stage Qualified Code(s): N18.9 - Chronic kidney disease, unspecified Is this a current diagnosis for this admission?: Yes (2) Deep vein thrombosis (DVT) of left lower extremity Qualifiers: Affected thrombotic vein of extremity: femoral Chronicity: acute Qualified Code(s): I82.412 - Acute embolism and thrombosis of left femoral vein Is this a current diagnosis for this admission?: Yes (3) Dementia Qualifiers: Dementia type: unspecified type Dementia behavioral disturbance: without behavioral disturbance Qualified Code(s): F03.90 - Unspecified dementia without behavioral disturbance Is this a current diagnosis for this admission?: Yes (4) Hyperkalemia Is this a current diagnosis for this admission?: Yes (5) Thrombocytopenia Is this a current diagnosis for this admission?: Yes - Plan Summary Plan Summary: DVT of the left leg: Will continue Eliquis Hypokalemia: Resolved, continue to monitor Acute kidney injury/chronic kidney disease stage III: Improved and stable, monitor renal function Thrombocytopenia: Chronic and stable Advanced dementia: Plan for care home placement Nonsustained V. tach: Seen by cardiology. Continue medical management Chronic systolic CHF: Continue current management Poor functional capacity Poor prognosis
[2018-06-17 08:21] LABS: PLATELET COUNT 80 10^3/uL (150-450)
[2018-06-17] MEDS: ISOSORBIDE MONONITRATE 30 MG TAB.ER.24H PO SCH (09:58)
[2018-06-17] MEDS: METOPROLOL SUCCINATE 25 MG TAB.SR.24H PO SCH (09:58)
[2018-06-17] MEDS: ATORVASTATIN CALCIUM 10 MG TABLET PO SCH (09:58)
[2018-06-17] MEDS: FUROSEMIDE 20 MG TABLET PO SCH (09:58)
[2018-06-17] MEDS: TIMOLOL MALEATE 0.5% OPH SOLN 5 ML OU SCH (09:58)
[2018-06-17] MEDS: CALCIUM CARBONATE 500 MG TABLET PO SCH ×2 (09:58→17:59)
[2018-06-17] MEDS: APIXABAN 5 MG TABLET PO SCH ×2 (09:58→18:00)
--- NOTE | 2018-06-18 08:33 | PDOC PROGRESS REPORT ---
Subjective Progress Note for:: 06/18/18 Subjective:: Patient is clinically stable No distress, tolerating diet Reason For Visit: ANASTASIIA,HYPERKALEMIA,DVT LT LE Physical Exam Vital Signs: Temp Pulse Resp BP Pulse Ox 97.9 F 61 14 128/78 H 100 06/18/18 03:51 06/18/18 07:00 06/18/18 03:51 06/18/18 03:51 06/18/18 03:51 Intake & Output 06/17/18 06/18/18 06/19/18 06:59 06:59 06:59 Intake Total 1081 720 Output Total 3 Balance 1081 717 Weight 146 lb 6.191 oz 143 lb 15.39 oz General appearance: PRESENT: no acute distress, cooperative Head exam: PRESENT: atraumatic, normocephalic Eye exam: PRESENT: conjunctiva pink. ABSENT: conjunctival injection Ear exam: ABSENT: bleeding Mouth exam: PRESENT: moist Respiratory exam: ABSENT: accessory muscle use Extremities exam: PRESENT: +1 edema - Left leg Neurological exam: PRESENT: other - Chronic dementia Psychiatric exam: ABSENT: agitated Results Laboratory Results: 06/17/18 07:20 06/17/18 07:20 06/09/18 06/09/18 06/11/18 06:33 13:39 05:22 Troponin I 0.041 NT-Pro-B Natriuret Pep 6220 H 5490 H 06/13/18 06/15/18 05:11 06:25 Troponin I NT-Pro-B Natriuret Pep 5980 H 7460 H Impressions: Venous Doppler Study 06/06/18 09:21 IMPRESSION: Acute deep vein thrombosis common femoral, femoral and popliteal veins. Chest X-Ray 06/09/18 00:00 IMPRESSION: INDISTINCT DENSITIES IN THE LUNG BASES, ATELECTASIS VERSUS INFILTRATE. CANNOT EXCLUDE UNDERLYING MASS. POSSIBLE PLEURAL EFFUSIONS. Assessment & Plan - Diagnosis (1) Chronic renal failure Qualifiers: Chronic kidney disease stage: unspecified stage Qualified Code(s): N18.9 - Chronic kidney disease, unspecified Is this a current diagnosis for this admission?: Yes (2) Deep vein thrombosis (DVT) of left lower extremity Qualifiers: Affected thrombotic vein of extremity: femoral Chronicity: acute Qualified Code(s): I82.412 - Acute embolism and thrombosis of left femoral vein Is this a current diagnosis for this admission?: Yes (3) Dementia Qualifiers: Dementia type: unspecified type Dementia behavioral disturbance: without behavioral disturbance Qualified Code(s): F03.90 - Unspecified dementia without behavioral disturbance Is this a current diagnosis for this admission?: Yes (4) Hyperkalemia Is this a current diagnosis for this admission?: Yes (5) Thrombocytopenia Is this a current diagnosis for this admission?: Yes - Plan Summary Plan Summary: DVT of the left leg: Stable on Eliquis Hyperkalemia: Resolved, continue to monitor Acute kidney injury/chronic kidney disease stage III: Improved and stable, monitor renal function Thrombocytopenia: Chronic and stable Advanced dementia: Awaiting penitentiary placement Nonsustained V. tach: Seen by cardiology. Continue medical management Chronic systolic CHF: Continue current management Poor functional capacity Poor prognosis
[2018-06-18] MEDS: FUROSEMIDE 20 MG TABLET PO SCH (09:22)
[2018-06-18] MEDS: TIMOLOL MALEATE 0.5% OPH SOLN 5 ML OU SCH (09:22)
[2018-06-18] MEDS: ISOSORBIDE MONONITRATE 30 MG TAB.ER.24H PO SCH (09:22)
[2018-06-18] MEDS: APIXABAN 5 MG TABLET PO SCH ×2 (09:23→17:42)
[2018-06-18] MEDS: METOPROLOL SUCCINATE 25 MG TAB.SR.24H PO SCH (09:23)
[2018-06-18] MEDS: ATORVASTATIN CALCIUM 10 MG TABLET PO SCH (09:23)
[2018-06-18] MEDS: CALCIUM CARBONATE 500 MG TABLET PO SCH ×2 (09:23→17:42)
[2018-06-19] MEDS: METOPROLOL SUCCINATE 25 MG TAB.SR.24H PO SCH (09:55)
[2018-06-19] MEDS: CALCIUM CARBONATE 500 MG TABLET PO SCH (09:55)
[2018-06-19] MEDS: ATORVASTATIN CALCIUM 10 MG TABLET PO SCH (09:56)
[2018-06-19] MEDS: FUROSEMIDE 20 MG TABLET PO SCH (09:56)
[2018-06-19] MEDS: ISOSORBIDE MONONITRATE 30 MG TAB.ER.24H PO SCH (09:56)
[2018-06-19] MEDS: APIXABAN 5 MG TABLET PO SCH (09:57)
[2018-06-19] MEDS: TIMOLOL MALEATE 0.5% OPH SOLN 5 ML OU SCH (09:57)
--- NOTE | 2018-06-19 14:09 | PDOC PROGRESS REPORT ---
Subjective Progress Note for:: 06/19/18 Subjective:: ROSALIND COOPER is a 88 year old male who is seen for treatment of a left lower extremity acute deep venous thrombosis which was discovered in the emergency room where the patient had been presented by family members with swelling and pain in his left lower leg. He is demented and a terrible historian. He was admitted for initial treatment and pain control. 06/19/18: Mr. Cooper is seen today and again continues to have significant dementia though he is pleasant and tries to be affable. He remains stable with little to no swelling in his lower leg and no apparent pain on movement or pressure against resistance. Plans will be discussed with her discharge planning staff to arrange for long-term care for this gentleman. Reason For Visit: ANASTASIIA,HYPERKALEMIA,DVT LT LE Physical Exam Vital Signs: Temp Pulse Resp BP Pulse Ox 97.4 F 58 L 18 113/50 L 100 06/19/18 10:59 06/19/18 10:59 06/19/18 10:59 06/19/18 10:59 06/19/18 10:59 Intake & Output 06/18/18 06/19/18 06/20/18 06:59 06:59 06:59 Intake Total 720 721 430 Output Total 3 Balance 717 721 430 Weight 65.3 kg 67.2 kg General appearance: PRESENT: no acute distress, cooperative Head exam: PRESENT: atraumatic, normocephalic Eye exam: PRESENT: conjunctiva pink. ABSENT: conjunctival injection, periorbital swelling, scleral icterus Ear exam: PRESENT: normal external ear exam. ABSENT: bleeding, drainage Mouth exam: PRESENT: moist, tongue midline Neck exam: ABSENT: thyromegaly, tracheal deviation Respiratory exam: PRESENT: clear to auscultation luis fernando, symmetrical, unlabored Cardiovascular exam: PRESENT: RRR. ABSENT: clicks, diastolic murmur, gallop, rubs, systolic murmur Vascular exam: PRESENT: normal capillary refill. ABSENT: pallor GI/Abdominal exam: PRESENT: normal bowel sounds, soft Rectal exam: PRESENT: deferred Extremities exam: ABSENT: joint swelling, pedal edema Musculoskeletal exam: PRESENT: full ROM, normal inspection Neurological exam: PRESENT: alert, CN II-XII grossly intact. ABSENT: oriented to person, oriented to place, oriented to time, oriented to situation, motor sensory deficit Psychiatric exam: PRESENT: appropriate affect, normal mood, other - Confused Skin exam: ABSENT: jaundice, rash, urticaria Results Laboratory Results: 06/17/18 07:20 06/17/18 07:20 06/09/18 06/09/18 06/11/18 06:33 13:39 05:22 Troponin I 0.041 NT-Pro-B Natriuret Pep 6220 H 5490 H 06/13/18 06/15/18 05:11 06:25 Troponin I NT-Pro-B Natriuret Pep 5980 H 7460 H Impressions: Venous Doppler Study 06/06/18 09:21 IMPRESSION: Acute deep vein thrombosis common femoral, femoral and popliteal veins. Chest X-Ray 06/09/18 00:00 IMPRESSION: INDISTINCT DENSITIES IN THE LUNG BASES, ATELECTASIS VERSUS INFILTRATE. CANNOT EXCLUDE UNDERLYING MASS. POSSIBLE PLEURAL EFFUSIONS. Assessment & Plan - Diagnosis (1) Deep vein thrombosis (DVT) of left lower extremity Qualifiers: Affected thrombotic vein of extremity: femoral Chronicity: acute Qualified Code(s): I82.412 - Acute embolism and thrombosis of left femoral vein Is this a current diagnosis for this admission?: Yes Plan: Patient has been started on adequate anticoagulation with Eliquis this will need to be continued for 6-12 months prior to discontinuation which will be determined by his primary care provider. (2) Acute on chronic renal insufficiency Is this a current diagnosis for this admission?: Yes Plan: Patient did demonstrate a elevation in creatinine which dropped during the course of the patient's hospitalization to normal. Since his fluids have been discontinued however he has shown some increase in his creatinine level however his renal function remains essentially poor with a GFR between 30 and 50 suggesting stage IIIb chronic renal failure. (3) Dementia Qualifiers: Dementia type: Alzheimer's disease Alzheimer's disease onset: late-onset Dementia behavioral disturbance: without behavioral disturbance Qualified Code (s): G30.1 - Alzheimer's disease with late onset; F02.80 - Dementia in other diseases classified elsewhere without behavioral disturbance; F02.80 - Dementia in other diseases classified elsewhere without behavioral disturbance; F02.80 - Dementia in other diseases classified elsewhere without behavioral disturbance Is this a current diagnosis for this admission?: Yes Plan: Patient's dementia makes his ability to participate in his medical care essentially nonexistent. This does complicate providing his care when no accurate or reliable medical history can be obtained. - Time Time Spent with patient: 35 or more minutes Medications reviewed and adjusted accordingly: Yes Anticipated discharge: SNF Within: when bed available
[2018-06-19 16:32] LABS: HEMATOCRIT 23.6 % (37.9-51.0); HEMOGLOBIN 8.1 g/dL (13.5-17.0); MEAN CORPUSCULAR HGB CONC 34.3 g/dL (32.0-36.0); MEAN CORPUSCULAR VOLUME 96 fl (80-97); RED BLOOD COUNT 2.46 10^6/uL (4.35-5.55); RED CELL DISTRIBUTION WIDTH 16.3 % (11.5-14.0); WHITE BLOOD COUNT 4.8 10^3/uL (4.0-10.5)
[2018-06-19 16:51] LABS: ANION GAP 7 (5-19); BLOOD UREA NITROGEN 78 mg/dL (7-20); CALCIUM 7.9 mg/dL (8.4-10.2); CARBON DIOXIDE 22 mmol/L (22-30); CHLORIDE 107 mmol/L (98-107); GLUCOSE 186 mg/dL (75-110); POTASSIUM 4.4 mmol/L (3.6-5.0); SODIUM 136.4 mmol/L (137-145)
[2018-06-19 16:55] LABS: PLATELET COUNT 97 10^3/uL (150-450)
[2018-06-19] MEDS: APIXABAN 2.5 MG TABLET PO SCH (17:10)
[2018-06-20] MEDS: APIXABAN 2.5 MG TABLET PO SCH ×2 (10:17→19:43)
[2018-06-20] MEDS: TIMOLOL MALEATE 0.5% OPH SOLN 5 ML OU SCH (10:17)
[2018-06-20] MEDS: METOPROLOL SUCCINATE 25 MG TAB.SR.24H PO SCH (10:17)
[2018-06-20] MEDS: ISOSORBIDE MONONITRATE 30 MG TAB.ER.24H PO SCH (10:18)
[2018-06-20] MEDS: ATORVASTATIN CALCIUM 10 MG TABLET PO SCH (10:18)
[2018-06-20 15:53] LABS: HEMATOCRIT 25.6 % (37.9-51.0); HEMOGLOBIN 8.8 g/dL (13.5-17.0); MEAN CORPUSCULAR HEMOGLOBIN 32.9 pg (27.0-33.4); MEAN CORPUSCULAR HGB CONC 34.2 g/dL (32.0-36.0); MEAN CORPUSCULAR VOLUME 96 fl (80-97); PLATELET COUNT 103 10^3/uL (150-450); RED BLOOD COUNT 2.66 10^6/uL (4.35-5.55); RED CELL DISTRIBUTION WIDTH 16.7 % (11.5-14.0); WHITE BLOOD COUNT 5.1 10^3/uL (4.0-10.5)
--- NOTE | 2018-06-20 15:55 | PDOC PROGRESS REPORT ---
Subjective Progress Note for:: 06/20/18 Subjective:: ROSALIND COOPER is a 88 year old male who is seen for treatment of a left lower extremity acute deep venous thrombosis which was discovered in the emergency room where the patient had been presented by family members with swelling and pain in his left lower leg. He is demented and a terrible historian. He was admitted for initial treatment and pain control. 06/19/18: Mr. Cooper is seen today and again continues to have significant dementia though he is pleasant and tries to be affable. He remains stable with little to no swelling in his lower leg and no apparent pain on movement or pressure against resistance. Plans will be discussed with her discharge planning staff to arrange for long-term care for this gentleman. 06/20/18: Mr. Cooper is seen again with a very pleasant and congenial attitude though he is very confused. He smiles readily and is quite agreeable with anything that is said to him. His vital signs remained stable and his left leg is showing virtually no significant swelling or pain at this time. Reason For Visit: ANASTASIIA,HYPERKALEMIA,DVT LT LE Physical Exam Vital Signs: Temp Pulse Resp BP Pulse Ox 97.7 F 59 L 20 103/51 L 100 06/20/18 11:28 06/20/18 11:28 06/20/18 11:28 06/20/18 11:28 06/20/18 11:28 Intake & Output 06/19/18 06/20/18 06/21/18 06:59 06:59 06:59 Intake Total 721 1389 739 Balance 721 1389 739 Weight 67.2 kg General appearance: PRESENT: no acute distress, cooperative Head exam: PRESENT: atraumatic, normocephalic Eye exam: ABSENT: conjunctival injection, periorbital swelling, scleral icterus Ear exam: PRESENT: normal external ear exam. ABSENT: bleeding, drainage Mouth exam: PRESENT: moist, tongue midline Neck exam: ABSENT: thyromegaly, tracheal deviation Respiratory exam: PRESENT: clear to auscultation luis fernando, symmetrical, unlabored Cardiovascular exam: PRESENT: RRR. ABSENT: clicks, diastolic murmur, gallop, rubs, systolic murmur, tachycardia Vascular exam: PRESENT: normal capillary refill. ABSENT: pallor GI/Abdominal exam: PRESENT: normal bowel sounds, soft Rectal exam: PRESENT: deferred Extremities exam: ABSENT: joint swelling, pedal edema Musculoskeletal exam: PRESENT: full ROM, normal inspection Neurological exam: PRESENT: alert, oriented to person - Oriented to self only. ABSENT: oriented to place, oriented to time, oriented to situation Psychiatric exam: PRESENT: appropriate affect, normal mood, other - Confused Skin exam: PRESENT: petechiae. ABSENT: jaundice, rash, urticaria Results Laboratory Results: 06/19/18 06/19/18 16:06 16:06 WBC 4.8 RBC 2.46 L Hgb 8.1 L Hct 23.6 L MCV 96 MCH 33.0 MCHC 34.3 RDW 16.3 H Plt Count 97 L Sodium 136.4 L Potassium 4.4 Chloride 107 Carbon Dioxide 22 Anion Gap 7 BUN 78 H Creatinine 2.09 H Est GFR ( Amer) 36 L Est GFR (Non-Af Amer) 30 L Glucose 186 H Calcium 7.9 L 06/09/18 06/09/18 06/11/18 06:33 13:39 05:22 Troponin I 0.041 NT-Pro-B Natriuret Pep 6220 H 5490 H 06/13/18 06/15/18 05:11 06:25 Troponin I NT-Pro-B Natriuret Pep 5980 H 7460 H Impressions: Venous Doppler Study 06/06/18 09:21 IMPRESSION: Acute deep vein thrombosis common femoral, femoral and popliteal veins. Chest X-Ray 06/09/18 00:00 IMPRESSION: INDISTINCT DENSITIES IN THE LUNG BASES, ATELECTASIS VERSUS INFILTRATE. CANNOT EXCLUDE UNDERLYING MASS. POSSIBLE PLEURAL EFFUSIONS. Assessment & Plan - Diagnosis (1) Deep vein thrombosis (DVT) of left lower extremity Qualifiers: Affected thrombotic vein of extremity: femoral Chronicity: acute Qualified Code(s): I82.412 - Acute embolism and thrombosis of left femoral vein Is this a current diagnosis for this admission?: Yes Plan: Patient has been started on adequate anticoagulation with Eliquis this will need to be continued for 6-12 months prior to discontinuation which will be determined by his primary care provider. (2) Acute on chronic renal insufficiency Is this a current diagnosis for this admission?: Yes Plan: Patient did demonstrate a elevation in creatinine which dropped during the course of the patient's hospitalization to normal. Since his fluids have been discontinued however he has shown some increase in his creatinine level however his renal function remains essentially poor with a GFR between 30 and 50 suggesting stage IIIb chronic renal failure. (3) Dementia Qualifiers: Dementia type: Alzheimer's disease Alzheimer's disease onset: late-onset Dementia behavioral disturbance: without behavioral disturbance Qualified Code (s): G30.1 - Alzheimer's disease with late onset; F02.80 - Dementia in other diseases classified elsewhere without behavioral disturbance; F02.80 - Dementia in other diseases classified elsewhere without behavioral disturbance; F02.80 - Dementia in other diseases classified elsewhere without behavioral disturbance Is this a current diagnosis for this admission?: Yes Plan: Patient's dementia makes his ability to participate in his medical care essentially nonexistent. This does complicate providing his care when no accurate or reliable medical history can be obtained. - Time Time Spent with patient: 25-34 minutes
[2018-06-20 16:12] LABS: ANION GAP 10 (5-19); BLOOD UREA NITROGEN 80 mg/dL (7-20); CALCIUM 8.1 mg/dL (8.4-10.2); CARBON DIOXIDE 21 mmol/L (22-30); CHLORIDE 107 mmol/L (98-107); GLUCOSE 134 mg/dL (75-110); POTASSIUM 4.9 mmol/L (3.6-5.0); SODIUM 137.5 mmol/L (137-145)
[2018-06-21] MEDS: ISOSORBIDE MONONITRATE 30 MG TAB.ER.24H PO SCH (09:36)
[2018-06-21] MEDS: APIXABAN 2.5 MG TABLET PO SCH ×2 (09:36→17:08)
[2018-06-21] MEDS: METOPROLOL SUCCINATE 25 MG TAB.SR.24H PO SCH (09:36)
[2018-06-21] MEDS: ATORVASTATIN CALCIUM 10 MG TABLET PO SCH (09:36)
[2018-06-21] MEDS: TIMOLOL MALEATE 0.5% OPH SOLN 5 ML OU SCH (10:36)
--- NOTE | 2018-06-21 13:30 | PDOC PROGRESS REPORT ---
Subjective Progress Note for:: 06/21/18 Subjective:: ROSALIND COOPER is a 88 year old male who is seen for treatment of a left lower extremity acute deep venous thrombosis which was discovered in the emergency room where the patient had been presented by family members with swelling and pain in his left lower leg. He is demented and a terrible historian. He was admitted for initial treatment and pain control. 06/19/18: Mr. Cooper is seen today and again continues to have significant dementia though he is pleasant and tries to be affable. He remains stable with little to no swelling in his lower leg and no apparent pain on movement or pressure against resistance. Plans will be discussed with her discharge planning staff to arrange for long-term care for this gentleman. 06/20/18: Mr. Cooper is seen again with a very pleasant and congenial attitude though he is very confused. He smiles readily and is quite agreeable with anything that is said to him. His vital signs remained stable and his left leg is showing virtually no significant swelling or pain at this time. 06/21/18: Mr. Cooper is seen today while he is working with physical therapy. He is doing reasonably well standing and has been able to take up to 90 steps thus far. He is again smiling and very agreeable but still unfortunately confused. His vital signs continue to remain stable and his left leg is again normal in appearance. Reason For Visit: ANASTASIIA,HYPERKALEMIA,DVT LT LE Physical Exam Vital Signs: Temp Pulse Resp BP Pulse Ox 97.4 F 59 L 16 115/60 100 06/21/18 11:12 06/21/18 11:12 06/21/18 11:12 06/21/18 11:12 06/21/18 11:12 Intake & Output 06/20/18 06/21/18 06/22/18 06:59 06:59 06:59 Intake Total 1389 1211 Balance 1389 1211 Weight 65.1 kg General appearance: PRESENT: no acute distress, cooperative, thin Head exam: PRESENT: atraumatic, normocephalic Eye exam: ABSENT: conjunctival injection, scleral icterus Ear exam: PRESENT: normal external ear exam. ABSENT: drainage Mouth exam: PRESENT: moist, tongue midline Neck exam: ABSENT: thyromegaly, tracheal deviation Respiratory exam: PRESENT: clear to auscultation luis fernando, symmetrical, unlabored Cardiovascular exam: PRESENT: RRR. ABSENT: clicks, gallop, rubs Vascular exam: PRESENT: normal capillary refill. ABSENT: pallor GI/Abdominal exam: PRESENT: [place] - [id number], soft Rectal exam: PRESENT: deferred Extremities exam: ABSENT: joint swelling, pedal edema Musculoskeletal exam: PRESENT: ambulatory. ABSENT: deformity, dislocation Neurological exam: PRESENT: alert, oriented to person - Only fair to moderate orientation to person. Skin exam: ABSENT: jaundice, rash, urticaria Results Laboratory Results: 06/20/18 15:32 06/20/18 15:32 06/20/18 06/20/18 15:32 15:32 WBC 5.1 RBC 2.66 L Hgb 8.8 L Hct 25.6 L MCV 96 MCH 32.9 MCHC 34.2 RDW 16.7 H Plt Count 103 L Sodium 137.5 Potassium 4.9 Chloride 107 Carbon Dioxide 21 L Anion Gap 10 BUN 80 H Creatinine 2.20 H Est GFR ( Amer) 34 L Est GFR (Non-Af Amer) 28 L Glucose 134 H Calcium 8.1 L 06/09/18 06/09/18 06/11/18 06:33 13:39 05:22 Troponin I 0.041 NT-Pro-B Natriuret Pep 6220 H 5490 H 06/13/18 06/15/18 05:11 06:25 Troponin I NT-Pro-B Natriuret Pep 5980 H 7460 H Impressions: Venous Doppler Study 06/06/18 09:21 IMPRESSION: Acute deep vein thrombosis common femoral, femoral and popliteal veins. Chest X-Ray 06/09/18 00:00 IMPRESSION: INDISTINCT DENSITIES IN THE LUNG BASES, ATELECTASIS VERSUS INFILTRATE. CANNOT EXCLUDE UNDERLYING MASS. POSSIBLE PLEURAL EFFUSIONS. Assessment & Plan - Diagnosis (1) Deep vein thrombosis (DVT) of left lower extremity Qualifiers: Affected thrombotic vein of extremity: femoral Chronicity: acute Qualified Code(s): I82.412 - Acute embolism and thrombosis of left femoral vein Is this a current diagnosis for this admission?: Yes Plan: Patient has been started on adequate anticoagulation with Eliquis this will need to be continued for 6-12 months prior to discontinuation which will be determined by his primary care provider. (2) Acute on chronic renal insufficiency Is this a current diagnosis for this admission?: Yes Plan: Patient did demonstrate a elevation in creatinine which dropped during the course of the patient's hospitalization to normal. Since his fluids have been discontinued however he has shown some increase in his creatinine level however his renal function remains essentially poor with a GFR between 30 and 50 suggesting stage IIIb chronic renal failure. (3) Dementia Qualifiers: Dementia type: Alzheimer's disease Alzheimer's disease onset: late-onset Dementia behavioral disturbance: without behavioral disturbance Qualified Code (s): G30.1 - Alzheimer's disease with late onset; F02.80 - Dementia in other diseases classified elsewhere without behavioral disturbance; F02.80 - Dementia in other diseases classified elsewhere without behavioral disturbance; F02.80 - Dementia in other diseases classified elsewhere without behavioral disturbance Is this a current diagnosis for this admission?: Yes Plan: Patient's dementia makes his ability to participate in his medical care essentially nonexistent. This does complicate providing his care when no accurate or reliable medical history can be obtained. - Time Time Spent with patient: 15-24 minutes Anticipated discharge: SNF Within: when bed available
[2018-06-21 15:46] LABS: HEMATOCRIT 24.4 % (37.9-51.0); HEMOGLOBIN 8.4 g/dL (13.5-17.0); MEAN CORPUSCULAR HEMOGLOBIN 33.1 pg (27.0-33.4); MEAN CORPUSCULAR HGB CONC 34.5 g/dL (32.0-36.0); MEAN CORPUSCULAR VOLUME 96 fl (80-97); PLATELET COUNT 107 10^3/uL (150-450); RED BLOOD COUNT 2.54 10^6/uL (4.35-5.55); RED CELL DISTRIBUTION WIDTH 16.5 % (11.5-14.0); WHITE BLOOD COUNT 5.7 10^3/uL (4.0-10.5)
[2018-06-21 16:03] LABS: ANION GAP 10 (5-19); BLOOD UREA NITROGEN 77 mg/dL (7-20); CALCIUM 7.9 mg/dL (8.4-10.2); CARBON DIOXIDE 19 mmol/L (22-30); CHLORIDE 107 mmol/L (98-107); GLUCOSE 168 mg/dL (75-110); POTASSIUM 5.2 mmol/L (3.6-5.0)
[2018-06-22] MEDS: METOPROLOL SUCCINATE 25 MG TAB.SR.24H PO SCH (10:00)
[2018-06-22] MEDS: ATORVASTATIN CALCIUM 10 MG TABLET PO SCH (10:00)
[2018-06-22] MEDS: TIMOLOL MALEATE 0.5% OPH SOLN 5 ML OU SCH (10:00)
[2018-06-22] MEDS: APIXABAN 2.5 MG TABLET PO SCH ×2 (10:01→17:15)
[2018-06-22] MEDS: ISOSORBIDE MONONITRATE 30 MG TAB.ER.24H PO SCH (10:02)
--- NOTE | 2018-06-22 14:54 | PDOC PROGRESS REPORT ---
Subjective Progress Note for:: 06/22/18 Subjective:: ROSALIND COOPER is a 88 year old male who is seen for treatment of a left lower extremity acute deep venous thrombosis which was discovered in the emergency room where the patient had been presented by family members with swelling and pain in his left lower leg. He is demented and a terrible historian. He was admitted for initial treatment and pain control. 06/19/18: Mr. Cooper is seen today and again continues to have significant dementia though he is pleasant and tries to be affable. He remains stable with little to no swelling in his lower leg and no apparent pain on movement or pressure against resistance. Plans will be discussed with her discharge planning staff to arrange for long-term care for this gentleman. 06/20/18: Mr. Cooper is seen again with a very pleasant and congenial attitude though he is very confused. He smiles readily and is quite agreeable with anything that is said to him. His vital signs remained stable and his left leg is showing virtually no significant swelling or pain at this time. 06/21/18: Mr. Cooper is seen today while he is working with physical therapy. He is doing reasonably well standing and has been able to take up to 90 steps thus far. He is again smiling and very agreeable but still unfortunately confused. His vital signs continue to remain stable and his left leg is again normal in appearance. 06/22/18: Rosalind is seen today while resting in bed. He is again very affable and pleasant and exceptionally agreeable but continues to be very confused. He continues to do well with physical therapy making daily progress and his examination is essentially unchanged since yesterday. Reason For Visit: ANASTASIIA,HYPERKALEMIA,DVT LT LE Physical Exam Vital Signs: Temp Pulse Resp BP Pulse Ox 97.4 F 52 L 16 112/54 L 100 06/22/18 11:52 06/22/18 11:52 06/22/18 11:52 06/22/18 11:52 06/22/18 11:52 Intake & Output 06/20/18 06/21/18 06/22/18 23:59 23:59 23:59 Intake Total 1489 842 466 Balance 1489 842 466 Weight 65.1 kg 65.1 kg General appearance: PRESENT: no acute distress, cooperative Head exam: PRESENT: atraumatic, normocephalic Eye exam: ABSENT: conjunctival injection, periorbital swelling, scleral icterus Ear exam: PRESENT: normal external ear exam. ABSENT: drainage Mouth exam: PRESENT: moist, tongue midline Neck exam: ABSENT: thyromegaly, tracheal deviation Respiratory exam: PRESENT: clear to auscultation luis fernando, symmetrical, unlabored Cardiovascular exam: PRESENT: RRR. ABSENT: clicks, diastolic murmur, gallop, rubs, systolic murmur Vascular exam: PRESENT: normal capillary refill. ABSENT: pallor GI/Abdominal exam: PRESENT: normal bowel sounds, soft Rectal exam: PRESENT: deferred Extremities exam: ABSENT: joint swelling, pedal edema Musculoskeletal exam: ABSENT: deformity, dislocation Neurological exam: PRESENT: alert, awake. ABSENT: oriented to person, oriented to place, oriented to time, oriented to situation Psychiatric exam: PRESENT: appropriate affect, normal mood Skin exam: ABSENT: jaundice, rash, urticaria Results Laboratory Results: 06/21/18 15:29 06/21/18 15:29 06/21/18 06/21/18 15:29 15:29 WBC 5.7 RBC 2.54 L Hgb 8.4 L Hct 24.4 L MCV 96 MCH 33.1 MCHC 34.5 RDW 16.5 H Plt Count 107 L Sodium 136.0 L Potassium 5.2 H Chloride 107 Carbon Dioxide 19 L Anion Gap 10 BUN 77 H Creatinine 1.98 H Est GFR ( Amer) 39 L Est GFR (Non-Af Amer) 32 L Glucose 168 H Calcium 7.9 L 06/09/18 06/09/18 06/11/18 06:33 13:39 05:22 Troponin I 0.041 NT-Pro-B Natriuret Pep 6220 H 5490 H 06/13/18 06/15/18 05:11 06:25 Troponin I NT-Pro-B Natriuret Pep 5980 H 7460 H Impressions: Venous Doppler Study 06/06/18 09:21 IMPRESSION: Acute deep vein thrombosis common femoral, femoral and popliteal veins. Chest X-Ray 06/09/18 00:00 IMPRESSION: INDISTINCT DENSITIES IN THE LUNG BASES, ATELECTASIS VERSUS INFILTRATE. CANNOT EXCLUDE UNDERLYING MASS. POSSIBLE PLEURAL EFFUSIONS. Assessment & Plan - Diagnosis (1) Deep vein thrombosis (DVT) of left lower extremity Qualifiers: Affected thrombotic vein of extremity: femoral Chronicity: acute Qualified Code(s): I82.412 - Acute embolism and thrombosis of left femoral vein Is this a current diagnosis for this admission?: Yes Plan: Patient has been started on adequate anticoagulation with Eliquis this will need to be continued for 6-12 months prior to discontinuation which will be determined by his primary care provider. (2) Acute on chronic renal insufficiency Is this a current diagnosis for this admission?: Yes Plan: Patient did demonstrate a elevation in creatinine which dropped during the course of the patient's hospitalization to normal. Since his fluids have been discontinued however he has shown some increase in his creatinine level however his renal function remains essentially poor with a GFR between 30 and 50 suggesting stage IIIb chronic renal failure. (3) Dementia Qualifiers: Dementia type: Alzheimer's disease Alzheimer's disease onset: late-onset Dementia behavioral disturbance: without behavioral disturbance Qualified Code (s): G30.1 - Alzheimer's disease with late onset; F02.80 - Dementia in other diseases classified elsewhere without behavioral disturbance; F02.80 - Dementia in other diseases classified elsewhere without behavioral disturbance; F02.80 - Dementia in other diseases classified elsewhere without behavioral disturbance Is this a current diagnosis for this admission?: Yes Plan: Patient's dementia makes his ability to participate in his medical care essentially nonexistent. This does complicate providing his care when no accurate or reliable medical history can be obtained. - Time Time Spent with patient: 15-24 minutes Medications reviewed and adjusted accordingly: No Anticipated discharge: SNF Within: when bed available
[2018-06-23] MEDS: ISOSORBIDE MONONITRATE 30 MG TAB.ER.24H PO SCH (09:04)
[2018-06-23] MEDS: ATORVASTATIN CALCIUM 10 MG TABLET PO SCH (09:04)
[2018-06-23] MEDS: METOPROLOL SUCCINATE 25 MG TAB.SR.24H PO SCH (09:04)
[2018-06-23] MEDS: TIMOLOL MALEATE 0.5% OPH SOLN 5 ML OU SCH (09:04)
[2018-06-23] MEDS: APIXABAN 2.5 MG TABLET PO SCH ×2 (09:04→17:00)
--- NOTE | 2018-06-23 15:37 | PDOC PROGRESS REPORT ---
Subjective Progress Note for:: 06/23/18 Subjective:: ROSALIND COOPER is a 88 year old male who is seen for treatment of a left lower extremity acute deep venous thrombosis which was discovered in the emergency room where the patient had been presented by family members with swelling and pain in his left lower leg. He is demented and a terrible historian. He was admitted for initial treatment and pain control. 06/19/18: Mr. Cooper is seen today and again continues to have significant dementia though he is pleasant and tries to be affable. He remains stable with little to no swelling in his lower leg and no apparent pain on movement or pressure against resistance. Plans will be discussed with her discharge planning staff to arrange for long-term care for this gentleman. 06/20/18: Mr. Cooper is seen again with a very pleasant and congenial attitude though he is very confused. He smiles readily and is quite agreeable with anything that is said to him. His vital signs remained stable and his left leg is showing virtually no significant swelling or pain at this time. 06/21/18: Mr. Cooper is seen today while he is working with physical therapy. He is doing reasonably well standing and has been able to take up to 90 steps thus far. He is again smiling and very agreeable but still unfortunately confused. His vital signs continue to remain stable and his left leg is again normal in appearance. 06/22/18: Rosalind is seen today while resting in bed. He is again very affable and pleasant and exceptionally agreeable but continues to be very confused. He continues to do well with physical therapy making daily progress and his examination is essentially unchanged since yesterday. 06/23/18: Rosalind is again in bed eating breakfast at the time my evaluation. He is smiling and happy and ask for his cereal to be opened and sugar to be put on with the milk. He continues to do well with therapy and his examination continues to be unchanged. He is being kept in the hospital until a correction facility bed is available. Reason For Visit: ANASTASIIA,HYPERKALEMIA,DVT LT LE Physical Exam Vital Signs: Temp Pulse Resp BP Pulse Ox 98.0 F 68 16 100/47 L 100 06/23/18 11:19 06/23/18 14:00 06/23/18 11:19 06/23/18 11:19 10/06/18 11:19 Intake & Output 06/21/18 06/22/18 06/23/18 23:59 23:59 23:59 Intake Total 842 1146 450 Balance 842 1146 450 Weight 65.1 kg 65.1 kg 65.7 kg General appearance: PRESENT: no acute distress, cooperative Head exam: PRESENT: atraumatic, normocephalic Eye exam: ABSENT: conjunctival injection, periorbital swelling, scleral icterus Ear exam: PRESENT: normal external ear exam. ABSENT: drainage Mouth exam: PRESENT: moist, tongue midline Neck exam: ABSENT: thyromegaly, tracheal deviation Respiratory exam: PRESENT: clear to auscultation luis fernando. ABSENT: symmetrical, unlabored Cardiovascular exam: PRESENT: RRR. ABSENT: clicks, gallop, rubs Vascular exam: PRESENT: normal capillary refill. ABSENT: pallor GI/Abdominal exam: PRESENT: normal bowel sounds, soft Rectal exam: PRESENT: deferred Extremities exam: ABSENT: joint swelling, pedal edema Musculoskeletal exam: ABSENT: deformity, dislocation Neurological exam: PRESENT: alert, awake. ABSENT: oriented to place, oriented to time, oriented to situation Psychiatric exam: PRESENT: appropriate affect, normal mood, other - Pleasantly confused Skin exam: ABSENT: jaundice, rash, urticaria Results Laboratory Results: 06/21/18 15:29 06/21/18 15:29 06/09/18 06/09/18 06/11/18 06:33 13:39 05:22 Troponin I 0.041 NT-Pro-B Natriuret Pep 6220 H 5490 H 06/13/18 06/15/18 05:11 06:25 Troponin I NT-Pro-B Natriuret Pep 5980 H 7460 H Impressions: Venous Doppler Study 06/06/18 09:21 IMPRESSION: Acute deep vein thrombosis common femoral, femoral and popliteal veins. Chest X-Ray 06/09/18 00:00 IMPRESSION: INDISTINCT DENSITIES IN THE LUNG BASES, ATELECTASIS VERSUS INFILTRATE. CANNOT EXCLUDE UNDERLYING MASS. POSSIBLE PLEURAL EFFUSIONS. Assessment & Plan - Diagnosis (1) Deep vein thrombosis (DVT) of left lower extremity Qualifiers: Affected thrombotic vein of extremity: femoral Chronicity: acute Qualified Code(s): I82.412 - Acute embolism and thrombosis of left femoral vein Is this a current diagnosis for this admission?: Yes Plan: Patient has been started on adequate anticoagulation with Eliquis this will need to be continued for 6-12 months prior to discontinuation which will be determined by his primary care provider. (2) Acute on chronic renal insufficiency Is this a current diagnosis for this admission?: Yes Plan: Patient did demonstrate a elevation in creatinine which dropped during the course of the patient's hospitalization to normal. Since his fluids have been discontinued however he has shown some increase in his creatinine level however his renal function remains essentially poor with a GFR between 30 and 50 suggesting stage IIIb chronic renal failure. (3) Dementia Qualifiers: Dementia type: Alzheimer's disease Alzheimer's disease onset: late-onset Dementia behavioral disturbance: without behavioral disturbance Qualified Code (s): G30.1 - Alzheimer's disease with late onset; F02.80 - Dementia in other diseases classified elsewhere without behavioral disturbance; F02.80 - Dementia in other diseases classified elsewhere without behavioral disturbance; F02.80 - Dementia in other diseases classified elsewhere without behavioral disturbance Is this a current diagnosis for this admission?: Yes Plan: Patient's dementia makes his ability to participate in his medical care essentially nonexistent. This does complicate providing his care when no accurate or reliable medical history can be obtained. - Time Time Spent with patient: 15-24 minutes
[2018-06-24] MEDS: TIMOLOL MALEATE 0.5% OPH SOLN 5 ML OU SCH (09:26)
[2018-06-24] MEDS: METOPROLOL SUCCINATE 25 MG TAB.SR.24H PO SCH (09:26)
[2018-06-24] MEDS: APIXABAN 2.5 MG TABLET PO SCH ×2 (09:27→17:09)
[2018-06-24] MEDS: ISOSORBIDE MONONITRATE 30 MG TAB.ER.24H PO SCH (09:27)
[2018-06-24] MEDS: ATORVASTATIN CALCIUM 10 MG TABLET PO SCH (09:27)
--- NOTE | 2018-06-24 13:11 | PDOC PROGRESS REPORT ---
Subjective Progress Note for:: 06/24/18 Subjective:: ROSALIND COOPER is a 88 year old male who is seen for treatment of a left lower extremity acute deep venous thrombosis which was discovered in the emergency room where the patient had been presented by family members with swelling and pain in his left lower leg. He is demented and a terrible historian. He was admitted for initial treatment and pain control. 06/19/18: Mr. Cooper is seen today and again continues to have significant dementia though he is pleasant and tries to be affable. He remains stable with little to no swelling in his lower leg and no apparent pain on movement or pressure against resistance. Plans will be discussed with her discharge planning staff to arrange for long-term care for this gentleman. 06/20/18: Mr. Cooper is seen again with a very pleasant and congenial attitude though he is very confused. He smiles readily and is quite agreeable with anything that is said to him. His vital signs remained stable and his left leg is showing virtually no significant swelling or pain at this time. 06/21/18: Mr. Cooper is seen today while he is working with physical therapy. He is doing reasonably well standing and has been able to take up to 90 steps thus far. He is again smiling and very agreeable but still unfortunately confused. His vital signs continue to remain stable and his left leg is again normal in appearance. 06/22/18: Rosalind is seen today while resting in bed. He is again very affable and pleasant and exceptionally agreeable but continues to be very confused. He continues to do well with physical therapy making daily progress and his examination is essentially unchanged since yesterday. 06/23/18: Rosalind is again in bed eating breakfast at the time my evaluation. He is smiling and happy asking for his cereal to be opened and sugar to be added with milk. He continues to do well with therapy and his examination continues to be unchanged. He is being kept in the hospital until a prison facility bed is available. 06/24/18: Areas resting in his bed after eating lunch today. He is easily arousable and is very happy to have a visitor. He makes simple conversation and continues a very jovial mood. He offers no complaints and denies new symptoms. He will be transferred to a prison facility when a bed is available. Reason For Visit: ANASTASIIA,HYPERKALEMIA,DVT LT LE Physical Exam Vital Signs: Temp Pulse Resp BP Pulse Ox 98.4 F 58 L 14 104/49 L 100 06/24/18 12:25 06/24/18 12:25 06/24/18 12:25 06/24/18 12:25 06/24/18 12:25 Intake & Output 06/22/18 06/23/18 06/24/18 23:59 23:59 23:59 Intake Total 1146 1189 Balance 1146 1189 Weight 65.1 kg 65.7 kg 65.7 kg General appearance: PRESENT: no acute distress, cooperative Head exam: PRESENT: atraumatic, normocephalic Eye exam: PRESENT: conjunctiva pink. ABSENT: conjunctival injection, periorbital swelling, scleral icterus Ear exam: PRESENT: normal external ear exam. ABSENT: drainage Mouth exam: PRESENT: moist, tongue midline Neck exam: ABSENT: thyromegaly, tracheal deviation Respiratory exam: PRESENT: clear to auscultation luis fernando, symmetrical, unlabored Cardiovascular exam: PRESENT: RRR. ABSENT: clicks, diastolic murmur, gallop, rubs, systolic murmur Vascular exam: PRESENT: normal capillary refill. ABSENT: pallor GI/Abdominal exam: PRESENT: normal bowel sounds, soft Rectal exam: PRESENT: deferred Extremities exam: ABSENT: joint swelling, pedal edema Musculoskeletal exam: PRESENT: ambulatory. ABSENT: deformity, dislocation Neurological exam: PRESENT: alert, awake, oriented to person, oriented to place , oriented to time. ABSENT: oriented to situation - Only limited simple situational orientation is noted Psychiatric exam: PRESENT: appropriate affect, normal mood Skin exam: PRESENT: intact. ABSENT: jaundice, rash, urticaria Results Laboratory Results: 06/21/18 15:29 06/21/18 15:29 06/09/18 06/09/18 06/11/18 06:33 13:39 05:22 Troponin I 0.041 NT-Pro-B Natriuret Pep 6220 H 5490 H 06/13/18 06/15/18 05:11 06:25 Troponin I NT-Pro-B Natriuret Pep 5980 H 7460 H Impressions: Venous Doppler Study 06/06/18 09:21 IMPRESSION: Acute deep vein thrombosis common femoral, femoral and popliteal veins. Chest X-Ray 06/09/18 00:00 IMPRESSION: INDISTINCT DENSITIES IN THE LUNG BASES, ATELECTASIS VERSUS INFILTRATE. CANNOT EXCLUDE UNDERLYING MASS. POSSIBLE PLEURAL EFFUSIONS. Assessment & Plan - Diagnosis (1) Deep vein thrombosis (DVT) of left lower extremity Qualifiers: Affected thrombotic vein of extremity: femoral Chronicity: acute Qualified Code(s): I82.412 - Acute embolism and thrombosis of left femoral vein Is this a current diagnosis for this admission?: Yes Plan: Patient has been started on adequate anticoagulation with Eliquis this will need to be continued for 6-12 months prior to discontinuation which will be determined by his primary care provider. (2) Acute on chronic renal insufficiency Is this a current diagnosis for this admission?: Yes Plan: Patient did demonstrate a elevation in creatinine which dropped during the course of the patient's hospitalization to normal. Since his fluids have been discontinued however he has shown some increase in his creatinine level however his renal function remains essentially poor with a GFR between 30 and 50 suggesting stage IIIb chronic renal failure. (3) Dementia Qualifiers: Dementia type: Alzheimer's disease Alzheimer's disease onset: late-onset Dementia behavioral disturbance: without behavioral disturbance Qualified Code (s): G30.1 - Alzheimer's disease with late onset; F02.80 - Dementia in other diseases classified elsewhere without behavioral disturbance; F02.80 - Dementia in other diseases classified elsewhere without behavioral disturbance; F02.80 - Dementia in other diseases classified elsewhere without behavioral disturbance Is this a current diagnosis for this admission?: Yes Plan: Patient's dementia and associated memory deficits make his ability to participate in the historical aspects of his medical care essentially nonexistent. This does complicate providing his care when no accurate or reliable medical history can be obtained. - Time Time Spent with patient: 15-24 minutes Anticipated discharge: SNF Within: when bed available
[2018-06-25] MEDS: ISOSORBIDE MONONITRATE 30 MG TAB.ER.24H PO SCH (09:28)
[2018-06-25] MEDS: METOPROLOL SUCCINATE 25 MG TAB.SR.24H PO SCH (09:28)
[2018-06-25] MEDS: ATORVASTATIN CALCIUM 10 MG TABLET PO SCH (09:29)
[2018-06-25] MEDS: APIXABAN 2.5 MG TABLET PO SCH ×2 (09:29→17:35)
[2018-06-25] MEDS: TIMOLOL MALEATE 0.5% OPH SOLN 5 ML OU SCH (09:59)
--- NOTE | 2018-06-25 15:53 | PDOC PROGRESS REPORT ---
Subjective Progress Note for:: 06/25/18 Subjective:: ROSALIND COOPER is a 88 year old male who is seen for treatment of a left lower extremity acute deep venous thrombosis which was discovered in the emergency room where the patient had been presented by family members with swelling and pain in his left lower leg. He is demented and a terrible historian. He was admitted for initial treatment and pain control. 06/19/18: Mr. Cooper is seen today and again continues to have significant dementia though he is pleasant and tries to be affable. He remains stable with little to no swelling in his lower leg and no apparent pain on movement or pressure against resistance. Plans will be discussed with her discharge planning staff to arrange for long-term care for this gentleman. 06/20/18: Mr. Cooper is seen again with a very pleasant and congenial attitude though he is very confused. He smiles readily and is quite agreeable with anything that is said to him. His vital signs remained stable and his left leg is showing virtually no significant swelling or pain at this time. 06/21/18: Mr. Cooper is seen today while he is working with physical therapy. He is doing reasonably well standing and has been able to take up to 90 steps thus far. He is again smiling and very agreeable but still unfortunately confused. His vital signs continue to remain stable and his left leg is again normal in appearance. 06/22/18: Rosalind is seen today while resting in bed. He is again very affable and pleasant and exceptionally agreeable but continues to be very confused. He continues to do well with physical therapy making daily progress and his examination is essentially unchanged since yesterday. 06/23/18: Rosalind is again in bed eating breakfast at the time my evaluation. He is smiling and happy asking for his cereal to be opened and sugar to be added with milk. He continues to do well with therapy and his examination continues to be unchanged. He is being kept in the hospital until a long term facility bed is available. 06/24/18: Rosalind is resting in his bed after eating lunch today. He is easily arousable and is very happy to have a visitor. He makes simple conversation and continues a very jovial mood. He offers no complaints and denies new symptoms. He will be transferred to a long term facility when a bed is available. 10/8/18: Here he is eating his lunch today at the time of my visit. He is essentially unchanged and continues to be confused/demented but very jovial, agreeable and friendly with all visitors. [facility] facility bed is still pending. Reason For Visit: ANASTASIIA,HYPERKALEMIA,DVT LT LE Physical Exam Vital Signs: Temp Pulse Resp BP Pulse Ox 97.6 F 58 L 12 118/53 L 100 06/25/18 12:00 06/25/18 12:00 06/25/18 12:00 06/25/18 12:00 06/25/18 12:00 Intake & Output 06/23/18 06/24/18 06/25/18 23:59 23:59 23:59 Intake Total 1189 473 222 Balance 1189 473 222 Weight 65.7 kg 65.7 kg 63.2 kg General appearance: PRESENT: no acute distress, cooperative Head exam: PRESENT: atraumatic, normocephalic Eye exam: PRESENT: EOMI. ABSENT: conjunctival injection, nystagmus, periorbital swelling, scleral icterus Ear exam: PRESENT: normal external ear exam. ABSENT: drainage Neck exam: ABSENT: thyromegaly, tracheal deviation Respiratory exam: PRESENT: clear to auscultation luis fernando, symmetrical, unlabored Cardiovascular exam: PRESENT: RRR. ABSENT: clicks, diastolic murmur, gallop, rubs, systolic murmur Vascular exam: PRESENT: normal capillary refill. ABSENT: pallor GI/Abdominal exam: PRESENT: [place] bowel [place] - [address], soft Rectal exam: PRESENT: deferred Musculoskeletal exam: ABSENT: deformity, dislocation Neurological exam: PRESENT: alert, awake Psychiatric exam: PRESENT: appropriate affect, normal mood, other - Confused with severe short-term memory deficits Skin exam: ABSENT: jaundice, rash, urticaria Results Laboratory Results: 06/21/18 15:29 06/21/18 15:29 06/09/18 06/09/18 06/11/18 06:33 13:39 05:22 Troponin I 0.041 NT-Pro-B Natriuret Pep 6220 H 5490 H 06/13/18 06/15/18 05:11 06:25 Troponin I NT-Pro-B Natriuret Pep 5980 H 7460 H Impressions: Venous Doppler Study 06/06/18 09:21 IMPRESSION: Acute deep vein thrombosis common femoral, femoral and popliteal veins. Chest X-Ray 06/09/18 00:00 IMPRESSION: INDISTINCT DENSITIES IN THE LUNG BASES, ATELECTASIS VERSUS INFILTRATE. CANNOT EXCLUDE UNDERLYING MASS. POSSIBLE PLEURAL EFFUSIONS. Assessment & Plan - Diagnosis (1) Deep vein thrombosis (DVT) of left lower extremity Qualifiers: Affected thrombotic vein of extremity: femoral Chronicity: acute Qualified Code(s): I82.412 - Acute embolism and thrombosis of left femoral vein Is this a current diagnosis for this admission?: Yes Plan: Patient has been started on adequate anticoagulation with Eliquis this will need to be continued for 6-12 months prior to discontinuation which will be determined by his primary care provider. (2) Acute on chronic renal insufficiency Is this a current diagnosis for this admission?: Yes Plan: Patient did demonstrate a elevation in creatinine which dropped during the course of the patient's hospitalization to normal. Since his fluids have been discontinued however he has shown some increase in his creatinine level however his renal function remains essentially poor with a GFR between 30 and 50 suggesting stage IIIb chronic renal failure. (3) Dementia Qualifiers: Dementia type: Alzheimer's disease Alzheimer's disease onset: late-onset Dementia behavioral disturbance: without behavioral disturbance Qualified Code (s): G30.1 - Alzheimer's disease with late onset; F02.80 - Dementia in other diseases classified elsewhere without behavioral disturbance; F02.80 - Dementia in other diseases classified elsewhere without behavioral disturbance; F02.80 - Dementia in other diseases classified elsewhere without behavioral disturbance Is this a current diagnosis for this admission?: Yes Plan: Patient's dementia and associated memory deficits make his ability to participate in the historical aspects of his medical care essentially nonexistent. This does complicate providing his care when no accurate or reliable medical history can be obtained. - Time Time Spent with patient: 15-24 minutes Anticipated discharge: SNF Within: when bed available
[2018-06-26] MEDS: TIMOLOL MALEATE 0.5% OPH SOLN 5 ML OU SCH (09:58)
[2018-06-26] MEDS: ISOSORBIDE MONONITRATE 30 MG TAB.ER.24H PO SCH (09:59)
[2018-06-26] MEDS: ATORVASTATIN CALCIUM 10 MG TABLET PO SCH (09:59)
[2018-06-26] MEDS: APIXABAN 2.5 MG TABLET PO SCH ×2 (09:59→17:35)
[2018-06-26] MEDS: METOPROLOL SUCCINATE 25 MG TAB.SR.24H PO SCH (10:48)
--- NOTE | 2018-06-26 11:05 | PDOC PROGRESS REPORT ---
Subjective Progress Note for:: 06/26/18 Subjective:: ROSALIND COOPER is a 88 year old male who is 88, demented and a terrible historian. I am called by the ED physician to admit this patient for Left lower extremity DVT, ANASTASIIA, hyperkalemia, and chronic thrombocytopenia. The patient has no idea why he is here. There is no family with him. Patient in bed no complaints advanced dementia. Review of medical records shows his B12 level was 204 his iron level is 49 his platelets have been low for years. He had asymptomatic V. tach when he came in but had been off his medications for over 2 years. His hemoglobin stable on Eliquis. Tolerating meals participating with physical therapy plan is for patient to be transferred to SNF than long-term care. Reason For Visit: ANASTASIIA,HYPERKALEMIA,DVT LT LE Physical Exam Vital Signs: Temp Pulse Resp BP Pulse Ox 97.9 F 67 16 119/60 100 06/26/18 07:38 06/26/18 07:38 06/26/18 07:38 06/26/18 07:38 06/26/18 07:38 Intake & Output 06/25/18 06/26/18 06/27/18 06:59 06:59 06:59 Intake Total 695 Balance 695 Weight 63.2 kg 63.3 kg General appearance: PRESENT: no acute distress, well-developed, well-nourished Eye exam: PRESENT: conjunctiva pink, EOMI, PERRLA. ABSENT: scleral icterus Neck exam: ABSENT: carotid bruit, JVD, lymphadenopathy, thyromegaly Respiratory exam: PRESENT: clear to auscultation luis fernando. ABSENT: rales, rhonchi, wheezes Cardiovascular exam: PRESENT: RRR. ABSENT: diastolic murmur, rubs, systolic murmur GI/Abdominal exam: PRESENT: normal bowel sounds, soft. ABSENT: distended, guarding, mass, organolmegaly, rebound, tenderness Neurological exam: PRESENT: awake, oriented to person, oriented to place, CN II- XII grossly intact. ABSENT: oriented to time, oriented to situation, motor sensory deficit Results Laboratory Results: 06/21/18 15:29 06/21/18 15:29 06/09/18 06/09/18 06/11/18 06:33 13:39 05:22 Troponin I 0.041 NT-Pro-B Natriuret Pep 6220 H 5490 H 06/13/18 06/15/18 05:11 06:25 Troponin I NT-Pro-B Natriuret Pep 5980 H 7460 H Impressions: Venous Doppler Study 06/06/18 09:21 IMPRESSION: Acute deep vein thrombosis common femoral, femoral and popliteal veins. Chest X-Ray 06/09/18 00:00 IMPRESSION: INDISTINCT DENSITIES IN THE LUNG BASES, ATELECTASIS VERSUS INFILTRATE. CANNOT EXCLUDE UNDERLYING MASS. POSSIBLE PLEURAL EFFUSIONS. Assessment & Plan - Diagnosis (1) Deep vein thrombosis (DVT) of left lower extremity Qualifiers: Affected thrombotic vein of extremity: femoral Chronicity: acute Qualified Code(s): I82.412 - Acute embolism and thrombosis of left femoral vein Is this a current diagnosis for this admission?: Yes Plan: Patient on Eliquis 2.5 mg twice daily hemoglobin stable. As this is not his first thrombotic event patient will remain on anticoagulation the remainder of his life (2) Anemia of chronic disease Is this a current diagnosis for this admission?: Yes Plan: Stable iron level normal at 49 B12 slightly depressed but should not be contributing to the anemia significantly. 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 (3) Dementia Qualifiers: Dementia type: Alzheimer's disease Alzheimer's disease onset: late-onset Dementia behavioral disturbance: without behavioral disturbance Qualified Code (s): G30.1 - Alzheimer's disease with late onset; F02.80 - Dementia in other diseases classified elsewhere without behavioral disturbance; F02.80 - Dementia in other diseases classified elsewhere without behavioral disturbance; F02.80 - Dementia in other diseases classified elsewhere without behavioral disturbance Is this a current diagnosis for this admission?: Yes Plan: Advanced (4) Thrombocytopenia Is this a current diagnosis for this admission?: Yes Plan: Stable dating back to 2011 in our medical record. No further workup planned (5) Ventricular tachycardia Is this a current diagnosis for this admission?: Yes Plan: Ejection fraction 40-45%. Patient has an underlying mild cardiomyopathy had been off his medications. Nonsustained asymptomatic patient back on his medications of beta blockade and nitrates. (6) Chronic kidney disease, stage 3 Is this a current diagnosis for this admission?: Yes Plan: Creatinine clearance in the low to mid 30s. Stable no further workup planned (7) B12 deficiency Is this a current diagnosis for this admission?: Yes Plan: B12 level 204. Patient on Eliquis will avoid IM injections and provide patient with 5000 mcg p.o. daily patient should have follow-up level in 1 month if not increased will require monthly injections (8) Cardiomyopathy Is this a current diagnosis for this admission?: Yes Plan: Ejection fraction 40-45% by echocardiography. Patient is on beta-naomi. Cannot have KELLY or are due to underlying renal disease. Patient is on Imdur and has been consulted by cardiology. - Time Time Spent with patient: 25-34 minutes Anticipated discharge: SNF Within: within 24 hours
[2018-06-26] MEDS: CYANOCOBALAMIN (VITAMIN B-12) 1,000 MCG TABLET PO SCH (11:55)
[2018-06-27] MEDS: ATORVASTATIN CALCIUM 10 MG TABLET PO SCH (10:42)
[2018-06-27] MEDS: ISOSORBIDE MONONITRATE 30 MG TAB.ER.24H PO SCH (10:42)
[2018-06-27] MEDS: METOPROLOL SUCCINATE 25 MG TAB.SR.24H PO SCH (10:42)
[2018-06-27] MEDS: APIXABAN 2.5 MG TABLET PO SCH ×2 (10:42→17:54)
[2018-06-27] MEDS: TIMOLOL MALEATE 0.5% OPH SOLN 5 ML OU SCH (10:47)
[2018-06-27] MEDS: CYANOCOBALAMIN (VITAMIN B-12) 1,000 MCG TABLET PO SCH (12:41)
--- NOTE | 2018-06-27 13:50 | PDOC PROGRESS REPORT ---
Subjective Progress Note for:: 06/27/18 Subjective:: ROSALIND COOPER is a 88 year old male who is 88, demented and a terrible historian. I am called by the ED physician to admit this patient for Left lower extremity DVT, ANASTASIIA, hyperkalemia, and chronic thrombocytopenia. The patient has no idea why he is here. There is no family with him. Patient in bed no complaints advanced dementia. Review of medical records shows his B12 level was 204 his iron level is 49 his platelets have been low for years. He had asymptomatic V. tach when he came in but had been off his medications for over 2 years. His hemoglobin stable on Eliquis. Tolerating meals participating with physical therapy plan is for patient to be transferred to SNF than long-term care. Reason For Visit: ANASTASIIA,HYPERKALEMIA,DVT LT LE Physical Exam Vital Signs: Temp Pulse Resp BP Pulse Ox 98.1 F 72 16 101/52 L 100 06/27/18 11:24 06/27/18 11:24 06/27/18 11:24 06/27/18 11:24 06/27/18 11:24 Intake & Output 06/26/18 06/27/18 06/28/18 06:59 06:59 06:59 Intake Total 1190 Balance 1190 Weight 63.3 kg General appearance: PRESENT: no acute distress, well-developed, well-nourished Neck exam: ABSENT: carotid bruit, JVD, lymphadenopathy, thyromegaly Respiratory exam: PRESENT: clear to auscultation luis fernando. ABSENT: rales, rhonchi, wheezes Cardiovascular exam: PRESENT: RRR. ABSENT: diastolic murmur, rubs, systolic murmur GI/Abdominal exam: PRESENT: normal bowel sounds, soft. ABSENT: distended, guarding, mass, organolmegaly, rebound, tenderness Extremities exam: PRESENT: full ROM. ABSENT: calf tenderness, clubbing, pedal edema Results Laboratory Results: 06/21/18 15:29 06/21/18 15:29 06/09/18 06/09/18 06/11/18 06:33 13:39 05:22 Troponin I 0.041 NT-Pro-B Natriuret Pep 6220 H 5490 H 06/13/18 06/15/18 05:11 06:25 Troponin I NT-Pro-B Natriuret Pep 5980 H 7460 H Impressions: Venous Doppler Study 06/06/18 09:21 IMPRESSION: Acute deep vein thrombosis common femoral, femoral and popliteal veins. Chest X-Ray 06/09/18 00:00 IMPRESSION: INDISTINCT DENSITIES IN THE LUNG BASES, ATELECTASIS VERSUS INFILTRATE. CANNOT EXCLUDE UNDERLYING MASS. POSSIBLE PLEURAL EFFUSIONS. Assessment & Plan - Diagnosis (1) Deep vein thrombosis (DVT) of left lower extremity Qualifiers: Affected thrombotic vein of extremity: femoral Chronicity: acute Qualified Code(s): I82.412 - Acute embolism and thrombosis of left femoral vein Is this a current diagnosis for this admission?: Yes Plan: Patient on Eliquis 2.5 mg twice daily hemoglobin stable. As this is not his first thrombotic event patient will remain on anticoagulation the remainder of his life (2) Anemia of chronic disease Is this a current diagnosis for this admission?: Yes Plan: Stable iron level normal at 49 B12 slightly depressed but should not be contributing to the anemia significantly. 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 (3) Dementia Qualifiers: Dementia type: Alzheimer's disease Alzheimer's disease onset: late-onset Dementia behavioral disturbance: without behavioral disturbance Qualified Code (s): G30.1 - Alzheimer's disease with late onset; F02.80 - Dementia in other diseases classified elsewhere without behavioral disturbance; F02.80 - Dementia in other diseases classified elsewhere without behavioral disturbance; F02.80 - Dementia in other diseases classified elsewhere without behavioral disturbance Is this a current diagnosis for this admission?: Yes Plan: Advanced (4) Thrombocytopenia Is this a current diagnosis for this admission?: Yes Plan: Stable dating back to 2011 in our medical record. No further workup planned (5) Ventricular tachycardia Is this a current diagnosis for this admission?: Yes Plan: Ejection fraction 40-45%. Patient has an underlying mild cardiomyopathy had been off his medications. Nonsustained asymptomatic patient back on his medications of beta blockade and nitrates. (6) Chronic kidney disease, stage 3 Is this a current diagnosis for this admission?: Yes Plan: Creatinine clearance in the low to mid 30s. Stable no further workup planned (7) B12 deficiency Is this a current diagnosis for this admission?: Yes Plan: B12 level 204. Patient on Eliquis will avoid IM injections and provide patient with 5000 mcg p.o. daily patient should have follow-up level in 1 month if not increased will require monthly injections (8) Cardiomyopathy Is this a current diagnosis for this admission?: Yes Plan: Ejection fraction 40-45% by echocardiography. Patient is on beta-namoi. Cannot have KELLY or are due to underlying renal disease. Patient is on Imdur and has been consulted by cardiology. - Time Time Spent with patient: 15-24 minutes - Plan Summary Plan Summary: Awaiting insurance approval for bed placement
[2018-06-28] MEDS: METOPROLOL SUCCINATE 25 MG TAB.SR.24H PO SCH (09:35)
[2018-06-28] MEDS: ATORVASTATIN CALCIUM 10 MG TABLET PO SCH (09:35)
[2018-06-28] MEDS: ISOSORBIDE MONONITRATE 30 MG TAB.ER.24H PO SCH (09:35)
[2018-06-28] MEDS: APIXABAN 2.5 MG TABLET PO SCH ×2 (09:35→17:23)
[2018-06-28] MEDS: TIMOLOL MALEATE 0.5% OPH SOLN 5 ML OU SCH (09:37)
--- NOTE | 2018-06-28 12:00 | PDOC PROGRESS REPORT ---
Subjective Progress Note for:: 06/28/18 Subjective:: ROSALIND COOPER is a 88 year old male who is 88, demented and a terrible historian. I am called by the ED physician to admit this patient for Left lower extremity DVT, ANASTASIIA, hyperkalemia, and chronic thrombocytopenia. The patient has no idea why he is here. There is no family with him. Patient in bed no complaints advanced dementia. Review of medical records shows his B12 level was 204 his iron level is 49 his platelets have been low for years. He had asymptomatic V. tach when he came in but had been off his medications for over 2 years. His hemoglobin stable on Eliquis. Tolerating meals participating with physical therapy plan is for patient to be transferred to SNF than long-term care. Reason For Visit: ANASTASIIA,HYPERKALEMIA,DVT LT LE Physical Exam Vital Signs: Temp Pulse Resp BP Pulse Ox 98.1 F 63 15 116/63 100 06/28/18 07:42 06/28/18 07:42 06/28/18 07:42 06/28/18 07:42 06/28/18 07:42 Intake & Output 06/27/18 06/28/18 06/29/18 06:59 06:59 06:59 Intake Total 1190 621 Balance 1190 621 General appearance: PRESENT: no acute distress, well-developed, well-nourished Neck exam: ABSENT: carotid bruit, JVD, lymphadenopathy, thyromegaly Respiratory exam: PRESENT: clear to auscultation luis fernando. ABSENT: rales, rhonchi, wheezes Cardiovascular exam: PRESENT: RRR. ABSENT: diastolic murmur, rubs, systolic murmur GI/Abdominal exam: PRESENT: normal bowel sounds, soft. ABSENT: distended, guarding, mass, organolmegaly, rebound, tenderness Extremities exam: PRESENT: full ROM. ABSENT: calf tenderness, clubbing, pedal edema Results Laboratory Results: 06/21/18 15:29 06/21/18 15:29 06/09/18 06/09/18 06/11/18 06:33 13:39 05:22 Troponin I 0.041 NT-Pro-B Natriuret Pep 6220 H 5490 H 06/13/18 06/15/18 05:11 06:25 Troponin I NT-Pro-B Natriuret Pep 5980 H 7460 H Impressions: Venous Doppler Study 06/06/18 09:21 IMPRESSION: Acute deep vein thrombosis common femoral, femoral and popliteal veins. Chest X-Ray 06/09/18 00:00 IMPRESSION: INDISTINCT DENSITIES IN THE LUNG BASES, ATELECTASIS VERSUS INFILTRATE. CANNOT EXCLUDE UNDERLYING MASS. POSSIBLE PLEURAL EFFUSIONS. Assessment & Plan - Diagnosis (1) Deep vein thrombosis (DVT) of left lower extremity Qualifiers: Affected thrombotic vein of extremity: femoral Chronicity: acute Qualified Code(s): I82.412 - Acute embolism and thrombosis of left femoral vein Is this a current diagnosis for this admission?: Yes Plan: Patient on Eliquis 2.5 mg twice daily hemoglobin stable. As this is not his first thrombotic event patient will remain on anticoagulation the remainder of his life. CBC in a.m. (2) Anemia of chronic disease Is this a current diagnosis for this admission?: Yes Plan: Stable iron level normal at 49 B12 slightly depressed but should not be contributing to the anemia significantly. 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 (3) Dementia Qualifiers: Dementia type: Alzheimer's disease Alzheimer's disease onset: late-onset Dementia behavioral disturbance: without behavioral disturbance Qualified Code (s): G30.1 - Alzheimer's disease with late onset; F02.80 - Dementia in other diseases classified elsewhere without behavioral disturbance; F02.80 - Dementia in other diseases classified elsewhere without behavioral disturbance; F02.80 - Dementia in other diseases classified elsewhere without behavioral disturbance Is this a current diagnosis for this admission?: Yes Plan: Advanced. Patient unable to live alone. Daughter works will need placement awaiting for insurance company approval (4) Thrombocytopenia Is this a current diagnosis for this admission?: Yes Plan: Stable dating back to 2011 in our medical record. No further workup planned (5) Ventricular tachycardia Is this a current diagnosis for this admission?: Yes Plan: Ejection fraction 40-45%. Patient has an underlying mild cardiomyopathy had been off his medications. Nonsustained asymptomatic patient back on his medications of beta blockade and nitrates. (6) Chronic kidney disease, stage 3 Is this a current diagnosis for this admission?: Yes Plan: Creatinine clearance in the low to mid 30s. Stable no further workup planned. BMP in a.m. (7) B12 deficiency Is this a current diagnosis for this admission?: Yes Plan: B12 level 204. Patient on Eliquis will avoid IM injections and provide patient with 5000 mcg p.o. daily patient should have follow-up level in 1 month if not increased will require monthly injections (8) Cardiomyopathy Is this a current diagnosis for this admission?: Yes Plan: Ejection fraction 40-45% by echocardiography. Patient is on beta-naomi. Cannot have KELLY or are due to underlying renal disease. Patient is on Imdur and has been consulted by cardiology. - Time Time Spent with patient: 15-24 minutes
[2018-06-28] MEDS: CYANOCOBALAMIN (VITAMIN B-12) 1,000 MCG TABLET PO SCH (17:23)
[2018-06-29 05:13] LABS: ABSOLUTE EOSINOPHILS # (AUTO) 0.6 10^3/uL (0.0-0.6); ABSOLUTE LYMPHOCYTES (AUTO) 0.9 10^3/uL (0.5-4.7); ABSOLUTE MONOCYTES (AUTO) 0.5 10^3/uL (0.1-1.4); ABSOLUTE NEUT (AUTO) 3.9 10^3/uL (1.7-8.2); BASOPHILS % (AUTO) 0.5 % (0-2); HEMATOCRIT 21.9 % (37.9-51.0); LYMPHOCYTES % (AUTO) 15.1 % (13-45); MEAN CORPUSCULAR HEMOGLOBIN 32.6 pg (27.0-33.4); MEAN CORPUSCULAR HGB CONC 33.8 g/dL (32.0-36.0); MEAN CORPUSCULAR VOLUME 97 fl (80-97); MONOCYTES % (AUTO) 7.7 % (3-13); RED BLOOD COUNT 2.27 10^6/uL (4.35-5.55); SEGMENTED NEUTROPHILS % (AUTO) 66.7 % (42-78); TOTAL CELLS COUNTED % (AUTO) 100 %; WHITE BLOOD COUNT 5.9 10^3/uL (4.0-10.5)
[2018-06-29 05:33] LABS: ANION GAP 10 (5-19); BLOOD UREA NITROGEN 101 mg/dL (7-20); CARBON DIOXIDE 16 mmol/L (22-30); CHLORIDE 115 mmol/L (98-107); GLUCOSE 128 mg/dL (75-110); POTASSIUM 5.6 mmol/L (3.6-5.0); SODIUM 140.9 mmol/L (137-145)
[2018-06-29 05:48] LABS: HEMOGLOBIN 7.4 g/dL (13.5-17.0)
[2018-06-29 05:49] LABS: PLATELET COUNT 91 10^3/uL (150-450)
[2018-06-29] MEDS: APIXABAN 2.5 MG TABLET PO SCH ×2 (09:03→17:02)
[2018-06-29] MEDS: METOPROLOL SUCCINATE 25 MG TAB.SR.24H PO SCH (09:03)
[2018-06-29] MEDS: TIMOLOL MALEATE 0.5% OPH SOLN 5 ML OU SCH (09:04)
[2018-06-29] MEDS: ATORVASTATIN CALCIUM 10 MG TABLET PO SCH (09:04)
[2018-06-29] MEDS: ISOSORBIDE MONONITRATE 30 MG TAB.ER.24H PO SCH (09:04)
[2018-06-29] MEDS: CYANOCOBALAMIN (VITAMIN B-12) 1,000 MCG TABLET PO SCH (11:33)
[2018-06-29] MEDS ORDERED: RINGERS SOLUTION,LACTATED 1,000 ML IV PRN (14:34)
--- NOTE | 2018-06-29 14:43 | PDOC PROGRESS REPORT ---
Subjective Progress Note for:: 06/29/18 Subjective:: ROSALIND COOPER is a 88 year old male who is 88, demented and a terrible historian. I am called by the ED physician to admit this patient for Left lower extremity DVT, ANASTASIIA, hyperkalemia, and chronic thrombocytopenia. The patient has no idea why he is here. There is no family with him. Patient in bed no complaints advanced dementia. Review of medical records shows his B12 level was 204 his iron level is 49 his platelets have been low for years. He had asymptomatic V. tach when he came in but had been off his medications for over 2 years. His hemoglobin stable on Eliquis. Tolerating meals participating with physical therapy plan is for patient to be transferred to SNF than long-term care. Patient was to be transferred to SNF today and ran into complications with his Medicaid application and will be unable to go. Patient has been eating and drinking without difficulty and his IV has been out. Blood work was ordered this morning just to check on his hemoglobin which is dropped into the 7.5 range his BUN is up to 101 and his creatinine is 2.9. Patient however has no complaints Reason For Visit: ANASTASIIA,HYPERKALEMIA,DVT LT LE Physical Exam Vital Signs: Temp Pulse Resp BP Pulse Ox 97.4 F 47 L 16 113/56 L 100 06/29/18 12:00 06/29/18 12:00 06/29/18 12:00 06/29/18 12:00 06/29/18 12:00 Intake & Output 06/28/18 06/29/18 06/30/18 06:59 06:59 06:59 Intake Total 621 956 Balance 621 956 Weight 65.3 kg Results Laboratory Results: 06/29/18 04:38 06/29/18 04:38 06/29/18 06/29/18 04:38 04:38 WBC 5.9 RBC 2.27 L Hgb 7.4 L Hct 21.9 L MCV 97 MCH 32.6 MCHC 33.8 RDW 16.0 H Plt Count 91 L Seg Neutrophils % 66.7 Lymphocytes % 15.1 Monocytes % 7.7 Eosinophils % 10.0 H Basophils % 0.5 Absolute Neutrophils 3.9 Absolute Lymphocytes 0.9 Absolute Monocytes 0.5 Absolute Eosinophils 0.6 Absolute Basophils 0.0 Sodium 140.9 Potassium 5.6 H Chloride 115 H Carbon Dioxide 16 L Anion Gap 10 BUN 101 H Creatinine 2.56 H Est GFR ( Amer) 29 L Est GFR (Non-Af Amer) 24 L Glucose 128 H Calcium 8.0 L Magnesium 1.4 L 06/09/18 06/09/18 06/11/18 06:33 13:39 05:22 Troponin I 0.041 NT-Pro-B Natriuret Pep 6220 H 5490 H 06/13/18 06/15/18 05:11 06:25 Troponin I NT-Pro-B Natriuret Pep 5980 H 7460 H Impressions: Venous Doppler Study 06/06/18 09:21 IMPRESSION: Acute deep vein thrombosis common femoral, femoral and popliteal veins. Chest X-Ray 06/09/18 00:00 IMPRESSION: INDISTINCT DENSITIES IN THE LUNG BASES, ATELECTASIS VERSUS INFILTRATE. CANNOT EXCLUDE UNDERLYING MASS. POSSIBLE PLEURAL EFFUSIONS. Assessment & Plan - Diagnosis (1) Deep vein thrombosis (DVT) of left lower extremity Qualifiers: Affected thrombotic vein of extremity: femoral Chronicity: acute Qualified Code(s): I82.412 - Acute embolism and thrombosis of left femoral vein Is this a current diagnosis for this admission?: Yes Plan: Patient on Eliquis 2.5 mg twice daily hemoglobin stable. As this is not his first thrombotic event patient will remain on anticoagulation the remainder of his life. CBC in a.m. patient's hemoglobin has dropped from the mid eights to the mid sevens. There is been no evidence of GI bleeding however he does have thrombocytopenia he may require filter if he is unable to tolerate anticoagulation. (2) Anemia of chronic disease Is this a current diagnosis for this admission?: Yes Plan: Stable iron level normal at 49 B12 slightly depressed but should not be contributing to the anemia significantly. 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 patient's hemoglobin now 7.4 down from 11 when he was initially admitted. His stool guaiac testing was negative early on will repeat. Given his declining renal function hemoglobin he may require filter placement (3) Dementia Qualifiers: Dementia type: Alzheimer's disease Alzheimer's disease onset: late-onset Dementia behavioral disturbance: without behavioral disturbance Qualified Code (s): G30.1 - Alzheimer's disease with late onset; F02.80 - Dementia in other diseases classified elsewhere without behavioral disturbance; F02.80 - Dementia in other diseases classified elsewhere without behavioral disturbance; F02.80 - Dementia in other diseases classified elsewhere without behavioral disturbance Is this a current diagnosis for this admission?: Yes Plan: Advanced. Patient unable to live alone. Daughter works will need placement awaiting for insurance company approval (4) Thrombocytopenia Is this a current diagnosis for this admission?: Yes Plan: Stable dating back to 2011 in our medical record. No further workup planned platelet count today 91,000. (5) Ventricular tachycardia Is this a current diagnosis for this admission?: Yes (6) Chronic kidney disease, stage 3 Is this a current diagnosis for this admission?: Yes Plan: Creatinine clearance in the low to mid 30s. Stable no further workup planned. BMP in a.m. 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 It looks like he is volume contracted we will give lactated Ringer's at 150 an hour overnight repeat labs in morning and assess his hemoglobin and make a determination as to if patient can adequately meet his needs. If he is unable to stay hydrated a PEG tube may be required (7) B12 deficiency Is this a current diagnosis for this admission?: Yes Plan: B12 level 204. Patient on Eliquis will avoid IM injections and provide patient with 5000 mcg p.o. daily patient should have follow-up level in 1 month if not increased will require monthly injections (8) Cardiomyopathy Is this a current diagnosis for this admission?: Yes Plan: Ejection fraction 40-45% by echocardiography. Patient is on beta-naomi. Cannot have KELLY or are due to underlying renal disease. Patient is on Imdur and has been consulted by cardiology. - Time Time Spent with patient: 25-34 minutes
[2018-06-30 05:27] LABS: ABSOLUTE EOSINOPHILS # (AUTO) 0.7 10^3/uL (0.0-0.6); ABSOLUTE LYMPHOCYTES (AUTO) 0.8 10^3/uL (0.5-4.7); ABSOLUTE MONOCYTES (AUTO) 0.4 10^3/uL (0.1-1.4); ABSOLUTE NEUT (AUTO) 3.1 10^3/uL (1.7-8.2); BASOPHILS % (AUTO) 0.6 % (0-2); EOSINOPHILS % (AUTO) 13.7 % (0-6); HEMATOCRIT 22.6 % (37.9-51.0); LYMPHOCYTES % (AUTO) 15.7 % (13-45); MEAN CORPUSCULAR HGB CONC 34.2 g/dL (32.0-36.0); MEAN CORPUSCULAR VOLUME 96 fl (80-97); MONOCYTES % (AUTO) 8.5 % (3-13); RED BLOOD COUNT 2.35 10^6/uL (4.35-5.55); RED CELL DISTRIBUTION WIDTH 16.1 % (11.5-14.0); SEGMENTED NEUTROPHILS % (AUTO) 61.5 % (42-78); TOTAL CELLS COUNTED % (AUTO) 100 %; WHITE BLOOD COUNT 5.1 10^3/uL (4.0-10.5)
[2018-06-30 05:44] LABS: ANION GAP 10 (5-19); BLOOD UREA NITROGEN 98 mg/dL (7-20); CALCIUM 7.8 mg/dL (8.4-10.2); CARBON DIOXIDE 17 mmol/L (22-30); CHLORIDE 115 mmol/L (98-107); GLUCOSE 177 mg/dL (75-110); POTASSIUM 5.4 mmol/L (3.6-5.0)
[2018-06-30 05:54] LABS: HEMOGLOBIN 7.7 g/dL (13.5-17.0); PLATELET COUNT 90 10^3/uL (150-450)
[2018-06-30] MEDS: ISOSORBIDE MONONITRATE 30 MG TAB.ER.24H PO SCH (09:12)
[2018-06-30] MEDS: TIMOLOL MALEATE 0.5% OPH SOLN 5 ML OU SCH (09:12)
[2018-06-30] MEDS: METOPROLOL SUCCINATE 25 MG TAB.SR.24H PO SCH (09:12)
[2018-06-30] MEDS: ATORVASTATIN CALCIUM 10 MG TABLET PO SCH (09:12)
[2018-06-30] MEDS: APIXABAN 2.5 MG TABLET PO SCH (09:12)
[2018-06-30] MEDS: CYANOCOBALAMIN (VITAMIN B-12) 1,000 MCG TABLET PO SCH (11:16)
--- NOTE | 2018-06-30 13:49 | PDOC DISCHARGE SUMMARY ---
General - Admit/Disc Date/PCP Admission Date/Primary Care Provider: 06/06/18 13:30 CRISELDA ZELAYA Discharge Date: 06/30/18 - Discharge Diagnosis (1) Deep vein thrombosis (DVT) of left lower extremity Is this a current diagnosis for this admission?: Yes Summary: Eliquis 2.5 mg every 12 hours. (2) Anemia of chronic disease Is this a current diagnosis for this admission?: Yes Summary: Hemoglobin 7.7 at the time of discharge. Will have to be monitored as patient has thrombocytopenia on Eliquis and has chronic renal disease stage III-IV (3) Dementia Is this a current diagnosis for this admission?: Yes Summary: Advanced (4) Thrombocytopenia Is this a current diagnosis for this admission?: Yes Summary: Dates back to 2011 stable (5) Ventricular tachycardia Is this a current diagnosis for this admission?: Yes Summary: Consultation by cardiology. [place] secondary to electrolyte imbalance has not had further tachycardia since beta-naomi added to regimen (6) Chronic kidney disease, stage 3 Is this a current diagnosis for this admission?: Yes Summary: Baseline creatinine 1.9-1.3. Patient needs to maintain good hydration (7) B12 deficiency Is this a current diagnosis for this admission?: Yes Summary: Initiated on 5000 units B12 orally recommend B12 level follow-up in 1 month's time (8) Cardiomyopathy Is this a current diagnosis for this admission?: Yes Summary: EF 40-45%. Patient on beta-naomi cannot have KELLY or ARB due to chronic renal disease - Additional Information Resuscitation Status: Full Code Discharge Diet: Other (Comments) - Renal low-cholesterol Discharge Activity: Activity As Tolerated Prescriptions: Apixaban [Eliquis 2.5 mg Tablet] 2.5 mg PO BID #60 tablet Atorvastatin Calcium [Lipitor 10 mg Tablet] 10 mg PO DAILY #30 tablet Cyanocobalamin (Vitamin B-12) [Vitamin B-12 1000 mcg Tablet] 5,000 mcg PO DAILY@ 1200 #150 tablet Isosorbide Mononitrate [Imdur 30 mg Tablet.er] 30 mg PO DAILY #30 tab.er.24h Magnesium Oxide 400 mg PO DAILY #30 tablet Metoprolol Succinate [Toprol Xl 25 mg Tab.sr] 12.5 mg PO DAILY #30 tab.sr.24h Home Medications: Timolol Maleate 1 drop OU QAM 06/06/18 Acetaminophen [Tylenol 325 mg Tablet] 650 mg PO Q6HP PRN tablet 06/30/18 Apixaban [Eliquis 2.5 mg Tablet] 2.5 mg PO BID #60 tablet 06/30/18 Atorvastatin Calcium [Lipitor 10 mg Tablet] 10 mg PO DAILY #30 tablet 06/30/18 Cyanocobalamin (Vitamin B-12) [Vitamin B-12 1000 mcg Tablet] 5,000 mcg PO DAILY@ 1200 #150 tablet 06/30/18 Isosorbide Mononitrate [Imdur 30 mg Tablet.er] 30 mg PO DAILY #30 tab.er.24h Magnesium Oxide 400 mg PO DAILY #30 tablet 06/30/18 Metoprolol Succinate [Toprol Xl 25 mg Tab.sr] 12.5 mg PO DAILY #30 tab.sr.24h History of Present Illness History of Present Illness: ROSALIND COOPER is a 88 year old male, coming in for left leg swelling ongoing for approximately 1 week. Family at bedside patient has a history of dementia the family states the patient has a history of colon cancer with resection states history of blood clots in the past was on blood thinning medication however currently is on not states he has not followed up with his primary care physician the last 2 years. Patient otherwise was prescribed medications for hypertension and other medical issues is currently ran out. Patient resting comfortably denies any pain. Denies any trauma to the leg denies any travel. Patient denies any shortness of breath. Hospital Course Hospital Course: Patient presented to the emergency room for left lower extremity swelling. Was found to have DVT. He was initiated on Eliquis 2.5 mg twice daily because of his age and his renal function. Patient has stage III-IV chronic kidney disease. He also has anemia. His initial presentation patient had acute renal injury which was improved with hydration. His baseline creatinine is anywhere from 1.9-2.3. He is on the creatinine clearance fence between stage III and IV. With hydration his hemoglobin dropped into the eights. And initiation of Eliquis it drifted down into the upper sevens. He had no blood in stool and guaiac testing was negative. While in the hospital patient had an episode of ventricular tachycardia. A consultation with cardiology was obtained and echocardiogram showed a mild cardiomyopathy with an ejection fraction of 40-45%. He was initiated on a beta- naomi electrolytes were corrected and he had no further arrhythmias. Because of his advanced dementia patient was to be transferred to a SNF. There was an inordinate delay on the insurance companies part which finally ended up in a denial by the insurance company for the benefit. The daughter was to enroll patient in Medicaid but this process was complicated by some type of clerical error and the patient is not able to be transferred to SNF. For this reason the patient is transferred to home to live with the daughter he is not capable to live by himself any longer. She will follow-up with the primary care provider in 7-10 days patient will need ongoing blood work. Physical Exam Vital Signs: Temp Pulse Resp BP Pulse Ox 98.8 F 61 16 121/62 100 06/30/18 11:36 06/30/18 11:36 06/30/18 11:36 06/30/18 11:36 06/30/18 11:36 Intake & Output 06/29/18 06/30/18 07/01/18 06:59 06:59 06:59 Intake Total 956 688 Balance 956 688 Weight 65.3 kg 65.3 kg General appearance: PRESENT: no acute distress, well-developed, well-nourished Neck exam: ABSENT: carotid bruit, JVD, lymphadenopathy, thyromegaly Respiratory exam: PRESENT: clear to auscultation luis fernando. ABSENT: rales, rhonchi, wheezes Cardiovascular exam: PRESENT: RRR. ABSENT: diastolic murmur, rubs, systolic murmur GI/Abdominal exam: PRESENT: normal bowel sounds, soft. ABSENT: distended, guarding, mass, organolmegaly, rebound, tenderness Extremities exam: PRESENT: full ROM. ABSENT: calf tenderness, clubbing, pedal edema Musculoskeletal exam: ABSENT: tenderness Neurological exam: PRESENT: awake, oriented to person. ABSENT: oriented to place, oriented to time, oriented to situation Results Laboratory Results: 06/30/18 04:28 06/30/18 04:28 06/29/18 06/30/18 06/30/18 15:55 04:28 04:28 WBC 5.1 RBC 2.35 L Hgb 7.7 L Hct 22.6 L MCV 96 MCH 33.0 MCHC 34.2 RDW 16.1 H Plt Count 90 L Seg Neutrophils % 61.5 Lymphocytes % 15.7 Monocytes % 8.5 Eosinophils % 13.7 H Basophils % 0.6 Absolute Neutrophils 3.1 Absolute Lymphocytes 0.8 Absolute Monocytes 0.4 Absolute Eosinophils 0.7 H Absolute Basophils 0.0 Sodium 142.0 Potassium 5.4 H Chloride 115 H Carbon Dioxide 17 L Anion Gap 10 BUN 98 H Creatinine 2.23 H Est GFR ( Amer) 34 L Est GFR (Non-Af Amer) 28 L Glucose 177 H Calcium 7.8 L Magnesium 1.4 L Stool Occult Blood NEGATIVE 06/09/18 06/09/18 06/11/18 06:33 13:39 05:22 Troponin I 0.041 NT-Pro-B Natriuret Pep 6220 H 5490 H 06/13/18 06/15/18 05:11 06:25 Troponin I NT-Pro-B Natriuret Pep 5980 H 7460 H Impressions: Venous Doppler Study 06/06/18 09:21 IMPRESSION: Acute deep vein thrombosis common femoral, femoral and popliteal veins. Chest X-Ray 06/09/18 00:00 IMPRESSION: INDISTINCT DENSITIES IN THE LUNG BASES, ATELECTASIS VERSUS INFILTRATE. CANNOT EXCLUDE UNDERLYING MASS. POSSIBLE PLEURAL EFFUSIONS. Qualifiers - * PATIENT BEING DISCHARGED WITH ANY OF THE FOLLOWING DIAGNOSIS: VTE (PE or DVT) VTE patient discharged on overlapping Therapy?: Yes Reason(s) for not prescribing Overlap Therapy:: Medical Contraindication - Patient started on Eliquis Plan Time Spent: Greater than 30 Minutes
[2018-06-30 16:13] VITALS: BP 118/55
== END 2018-06-30 17:37 | disposition home health service (06) | DRG 299 ==
LOC: ER 08:25 → EH 13:28 → OBSVTOIN 13:30 → 4S 22:54
PROVIDERS: ADMIT Emergency Medicine; ATTEND Emergency Medicine
PROC: 3E0234Z Introduction of Serum, Toxoid and Vaccine into Muscle, Percutaneous Approach (ICD-10-PCS; principal; 2018-06-30)
DX: I82.412 Acute embolism and thrombosis of left femoral vein (principal); I50.43 Acute on chronic combined systolic (congestive) and diastolic (congestive) heart failure; N17.9 Acute kidney failure, unspecified; I47.2 Ventricular tachycardia; I13.0 Hypertensive heart and chronic kidney disease with heart failure and stage 1 through stage 4 chronic kidney disease, or unspecified chronic kidney disease; E87.2 Acidosis; D61.818 Other pancytopenia; D75.81 Myelofibrosis; I42.9 Cardiomyopathy, unspecified; I82.432 Acute embolism and thrombosis of left popliteal vein; E87.5 Hyperkalemia; N18.3 Chronic kidney disease, stage 3 (moderate); E11.22 Type 2 diabetes mellitus with diabetic chronic kidney disease; D69.6 Thrombocytopenia, unspecified; E83.42 Hypomagnesemia; E83.51 Hypocalcemia; D64.9 Anemia, unspecified; F02.80 Dementia in other diseases classified elsewhere, unspecified severity, without behavioral disturbance, psychotic disturbance, mood disturbance, and anxiety; G30.1 Alzheimer's disease with late onset; E53.8 Deficiency of other specified B group vitamins; M19.90 Unspecified osteoarthritis, unspecified site; R45.1 Restlessness and agitation; H40.9 Unspecified glaucoma; Z60.2 Problems related to living alone; Z91.19 Patient's noncompliance with other medical treatment and regimen; Z85.038 Personal history of other malignant neoplasm of large intestine; Z23 Encounter for immunization
CPT/HCPCS: 36415; 71046; 80048; 80053; 82272; 82607; 82728; 82746; 82962; 83540; 83550; 83735; 83880; 84484; 85025; 85027; 85045; 85610; 85730; 90471; 90686; 93005; 93010; 93306; 93971; 94640; 96360; 96361; 99285; G0008; J0610; J1815; J3475; J3490; J7060; J7620